=== PATIENT | female | born 1970 | race Caucasian/White ===

== ENCOUNTER 2018-10-20 08:00 | Outpatient (CLI) | payer MEDICAID ==
[2018-10-20 12:51] LABS: BASOPHILS # (AUTO) 0.1 10^3/uL (0.0-0.1); BASOPHILS % (AUTO) 1.4 %; EOSINOPHILS # (AUTO) 0.4 10^3/uL (0.0-0.7); EOSINOPHILS % (AUTO) 6.1 %; HGB - HEMOGLOBIN 14.1 g/dL (12.0-16.0); LYMPHOCYTES # (AUTO) 2.4 10^3/uL (1.5-3.5); LYMPHOCYTES % (AUTO) 39.3 %; MEAN CORPUSCULAR HEMOGLOBIN 28.9 pg (27.0-31.0); MEAN CORPUSCULAR HGB CONC 33.6 g/dL (32.0-36.0); MEAN CORPUSCULAR VOLUME 85.9 fL (81.0-99.0); MEAN PLATELET VOLUME 7.3 fL (7.9-10.8); MONOCYTES # (AUTO) 0.4 10^3/uL (0.0-1.0); MONOCYTES % (AUTO) 6.1 %; NEUTROPHILS # (AUTO) 2.9 10^3/uL (1.5-6.6); NEUTROPHILS % (AUTO) 47.1 %; PLT - PLATELET COUNT 391 10^3/uL (130-450); RED BLOOD COUNT 4.89 10^6/uL (4.20-5.40); RED CELL DISTRIBUTION WIDTH 13.4 % (12.0-15.0); WHITE BLOOD COUNT 6.2 x10^3/uL (4.8-10.8)
[2018-10-20 13:08] LABS: ALBUMIN 4.1 g/dL (3.2-5.5); ALBUMIN/GLOBULIN RATIO 1.1 (1.0-2.2); ALKALINE PHOSPHATASE 64 IU/L (42-121); ALT ALANINE AMINOTRANSFERASE 24 IU/L (10-60); AST ASPARTATE AMINOTRANSFERASE 20 IU/L (10-42); BILIRUBIN,TOTAL 0.9 mg/dL (0.2-1.0); BUN - BLOOD UREA NITROGEN 12 mg/dL (6-20); CALCIUM 9.4 mg/dL (8.5-10.3); CARBON DIOXIDE - CO2 25 mmol/L (21-32); CHLORIDE 102 mmol/L (101-111); CHOL/HDL RATIO 3.6 (<4.4); CHOLESTEROL 193 mg/dL; CREATININE 0.8 mg/dL (0.4-1.0); GFR - MDRD 77 (>89); GLUCOSE 214 mg/dL (70-100); HDL CHOLESTEROL 54 mg/dL; LDL CHOLESTEROL,CALCULATED 89 mg/dL; LDL/HDL RATIO 1.6 (<4.4); SODIUM 137 mmol/L (135-145); TOTAL PROTEIN 7.9 g/dL (6.7-8.2); VLDL CHOLESTEROL 50 mg/dL
[2018-10-20 13:21] LABS: HB2 TOTAL 15.5 g/dL; HEMOGLOBIN A1C 1.63 g/dL; HEMOGLOBIN A1C % 11.8 % (4.6-6.2)
== END 2018-10-20 23:59 | disposition home or self-care (01) ==
LOC: LAB.N 08:00
PROVIDERS: ATTEND Nurse Practitioner Gerontology
DX: I10 Essential (primary) hypertension (principal); E11.9 Type 2 diabetes mellitus without complications; Z13.9 Encounter for screening, unspecified
CPT/HCPCS: 36415; 80053; 80061; 83036; 83721; 84443; 85025

== ENCOUNTER 2018-12-21 01:57 | Emergency (ER) | payer MEDICAID ==
[2018-12-21 02:50] LABS: BASOPHILS # (AUTO) 0.1 10^3/uL (0.0-0.1); BASOPHILS % (AUTO) 0.9 %; EOSINOPHILS # (AUTO) 0.1 10^3/uL (0.0-0.7); EOSINOPHILS % (AUTO) 1.6 %; HGB - HEMOGLOBIN 14.3 g/dL (12.0-16.0); LYMPHOCYTES # (AUTO) 3.3 10^3/uL (1.5-3.5); LYMPHOCYTES % (AUTO) 39.4 %; MEAN CORPUSCULAR HEMOGLOBIN 29.1 pg (27.0-31.0); MEAN CORPUSCULAR HGB CONC 33.5 g/dL (32.0-36.0); MONOCYTES # (AUTO) 0.7 10^3/uL (0.0-1.0); MONOCYTES % (AUTO) 8.6 %; NEUTROPHILS # (AUTO) 4.1 10^3/uL (1.5-6.6); NEUTROPHILS % (AUTO) 49.5 %; PLT - PLATELET COUNT 368 10^3/uL (130-450); RED BLOOD COUNT 4.91 10^6/uL (4.20-5.40); RED CELL DISTRIBUTION WIDTH 13.3 % (12.0-15.0); WHITE BLOOD COUNT 8.4 x10^3/uL (4.8-10.8)
[2018-12-21 02:57] LABS: ALBUMIN 4.4 g/dL (3.2-5.5); ALBUMIN/GLOBULIN RATIO 1.3 (1.0-2.2); BILIRUBIN,TOTAL 0.5 mg/dL (0.2-1.0); CALCIUM 9.5 mg/dL (8.5-10.3); TOTAL PROTEIN 7.9 g/dL (6.7-8.2)
[2018-12-21] MEDS ORDERED: SODIUM CHLORIDE 0.9% 1,000 ML IV ONE (04:00)
[2018-12-21] MEDS ORDERED: HYDROmorphone 1 MG/ML CARPUJECT IVP STA ×2 (04:00→04:58)
[2018-12-21] MEDS ORDERED: ONDANSETRON 4 MG/2 ML VIAL IVP STA (04:00)
[2018-12-21 04:16] LABS: BILIRUBIN,URINE NEGATIVE (NEGATIVE); GLUCOSE, URINE (UA) >=1000 mg/dL (NEGATIVE); KETONES,URINE (UA) NEGATIVE (NEGATIVE); LEUKOCYTE ESTERASE, URINE NEGATIVE (NEGATIVE); NITRITE,URINE NEGATIVE (NEGATIVE); OCCULT BLOOD,URINE NEGATIVE (NEGATIVE); PH,URINE 5.5 PH (5.0-7.5); PROTEIN,URINE NEGATIVE (NEGATIVE); UROBILINOGEN,URINE 0.2 (NORMAL) E.U./dL (NORMAL)
[2018-12-21 04:34] LABS: CLARITY,URINE CLEAR (CLEAR)
--- NOTE | 2018-12-21 04:39 | ED Physician Documentation ---
PD HPI ABD PAIN - Stated complaint Stated Complaint: ABD PX - Chief complaint Chief Complaint: Abd Pain - History obtained from History obtained from: Patient, Family - History of Present Illness Timing - onset: Enter time (010) Timing - duration: Hours Timing - details: Abrupt onset, Still present Quality: Sharp, Pain Location: RUQ Radiation: Right flank Improved by: Laying still Worsened by: Moving, Position, Palpation Associated symptoms: Nausea, Vomiting Similar symptoms before: Diagnosis (pancreatitis) Recently seen: Not recently seen - Additional information Additional information: 48-year-old female with a prior history of chronic pancreatitis has previously been well-known to this emergency department but she has moved to [place] and she has now returned. We have no visits in our electronic system for this patient. She had previously been to the emergency department numerous times with abdominal pain pancreatitis and had a failed pancreatic stent placed. She has since moved to [place] lost 100 pounds and rarely had to be seen there. She has been back to [facility] for the past year and she has not had to be seen for this pain. She states that this evening she had dinner at the buffet at 7pm and not any excessive amount. At 1 am she developed sharp severe pain in the RUQ and epigastrium. She has had her gallbladder out 29 years ago. She states this is a similar pain to what she has had previously and she is just not able to tolerate it. Review of Systems Constitutional: denies: Fever Eyes: denies: Decreased vision Ears: denies: Ear pain Nose: denies: Rhinorrhea / runny nose, Congestion Throat: denies: Sore throat Cardiac: denies: Chest pain / pressure, Palpitations Respiratory: denies: Dyspnea, Cough GI: reports: Abdominal Pain, Nausea : denies: Dysuria, Frequency Skin: denies: Rash Musculoskeletal: denies: Neck pain, Back pain Neurologic: denies: Generalized weakness, Focal weakness, Numbness PD PAST MEDICAL HISTORY - Past Medical History Past Medical History: Yes Cardiovascular: Hypertension Endocrine/Autoimmune: Type 2 diabetes GI: Pancreatitis, Cholelithiasis Psych: Depression, Anxiety - Past Surgical History Past Surgical History: Yes General: Cholecystectomy Ortho: Knee replacement /[employer]: Tubal ligation, Hysterectomy, Oophrectomy, Breast reduction - Present Medications Home Medications: Ambulatory Orders Medication Instructions Recorded Confirmed Canagliflozin [Invokana] 100 mg PO DAILY 12/21/18 12/21/18 RX: FLUoxetine [PROzac] 20 mg PO DAILY 12/21/18 12/21/18 RX: Lisinopril 25 mg PO DAILY 12/21/18 12/21/18 RX: Metformin HCl 1,000 mg PO BID 12/21/18 12/21/18 - Allergies Allergies/Adverse Reactions: Allergies Allergy/AdvReac Type Severity Reaction Status Date / Time metoclopramide [From Reglan] AdvReac Rash Verified 12/21/18 02:12 - Social History Does the pt smoke?: No Smoking Status: Never smoker Does the pt drink ETOH?: No Does the pt have substance abuse?: No - Immunizations Immunizations are current?: Yes - POLST Patient has POLST: No PD ED PE NORMAL - Vitals Vital signs reviewed: Yes (hypertensive ) - General General: Alert and oriented X 3, Well developed/nourished, Other (appears in pain clutching RUQ) - HEENT HEENT: Atraumatic, PERRL, EOMI - Neck Neck: Supple, no meningeal sign - Cardiac Cardiac: RRR, No murmur - Respiratory Respiratory: No respiratory distress, Clear bilaterally - Abdomen Abdomen: Soft, Other (mild tenderness to the RUQ and epigastrium ) - Back Back: No CVA TTP, No spinal TTP - Derm Derm: Normal color, Warm and dry, No rash - Extremities Extremities: No deformity, No edema - Neuro Neuro: Alert and oriented X 3, 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, No motor deficit, No sensory deficit, Normal speech Eye Opening: Spontaneous Motor: Obeys Commands Verbal: Oriented GCS Score: 15 - Psych Psych: Normal mood, Normal affect Results - Vitals Vitals: Vital Signs - 24 hr 12/21/18 12/21/18 12/21/18 02:10 03:01 05:15 Temperature 37.1 C 36.5 C 36.8 C Heart Rate 78 94 103 H Respiratory 17 20 15 Rate Blood Pressure 139/85 H 128/89 H 116/78 O2 Saturation 100 97 95 Oxygen O2 Source Room air - Labs Labs: Laboratory Tests 12/21/18 12/21/18 12/21/18 02:38 02:38 03:16 WBC 8.4 RBC 4.91 Hgb 14.3 Hct 42.7 MCV 87.0 MCH 29.1 MCHC 33.5 RDW 13.3 Plt Count 368 MPV 7.0 L Neut # (Auto) 4.1 Lymph # (Auto) 3.3 [place] # (Auto) 0.7 Eos # (Auto) 0.1 Baso # (Auto) 0.1 Absolute Nucleated RBC 0.00 Nucleated RBC % 0.0 Sodium 138 Potassium 3.5 Chloride 98 L Carbon Dioxide 28 Anion Gap 12.0 BUN 23 H Creatinine 1.0 Estimated GFR (MDRD) 59 L Glucose 220 H Calcium 9.5 Total Bilirubin 0.5 AST 14 ALT 22 Alkaline Phosphatase 61 Total Protein 7.9 Albumin 4.4 Globulin 3.5 Albumin/Globulin Ratio 1.3 Lipase 48 Urine Color YELLOW Urine Clarity CLEAR Urine pH 5.5 Ur Specific [place] 1.015 Urine Protein NEGATIVE Urine Glucose (UA) >=1000 H Urine Ketones NEGATIVE Urine Occult Blood NEGATIVE Urine Nitrite NEGATIVE Urine Bilirubin NEGATIVE Urine Urobilinogen 0.2 (NORMAL) Ur Leukocyte Esterase NEGATIVE Ur Microscopic Review NOT INDICATED Urine Culture Comments NOT INDICATED PD MEDICAL DECISION MAKING - ED course Complexity details: reviewed results, re-evaluated patient, considered differential, d/w patient, d/w family ED course: 48 y/o female with post prandial pain in a pattern similar to what she has experienced previously has no evidence of pancreatitis on lab and responds well to treatment with a liter of saline and dilaudid IV. No scripts are provided. Departure - Departure Disposition: 01 Home, Self Care Clinical Impression: Abdominal pain Qualifiers: Abdominal location: right upper quadrant Qualified Code(s): R10.11 - Right upper quadrant pain Instructions: ED Abdominal Pain Unkn Cause Follow-Up: Greer Disla ARNP [Primary Care Provider] - Discharge Date/Time: 12/21/18 05:23
[2018-12-21 05:16] VITALS: BP 116/78
== END 2018-12-21 05:23 | disposition home or self-care (01) ==
LOC: ED 01:57
DX: R10.11 Right upper quadrant pain (principal); R10.13 Epigastric pain; R11.2 Nausea with vomiting, unspecified; I10 Essential (primary) hypertension; E11.9 Type 2 diabetes mellitus without complications; Z79.84 Long term (current) use of oral hypoglycemic drugs; Z90.49 Acquired absence of other specified parts of digestive tract
CPT/HCPCS: 36415; 80053; 81003; 83690; 85025; 96374; 96376; 99283; 99284; J1170; 81001; 87086

== ENCOUNTER 2019-06-09 04:05 | Emergency (ER) | payer SELFPAY ==
[2019-06-09] MEDS ORDERED: SODIUM CHLORIDE 0.9% 1,000 ML IV ONE ×2 (04:32→06:53)
[2019-06-09] MEDS ORDERED: INSULIN REGULAR HUMAN 100 UNIT in SODIUM CHLORIDE 0.9% 100ML 99 ML IV STA (04:33)
--- NOTE | 2019-06-09 04:42 | ED Physician Documentation ---
History of Present Illness - Stated complaint Stated Complaint: CP/SLUGGISH FACE - Chief complaint Chief Complaint: Cardiac - History obtained from History obtained from: Patient, Family - History of Present Illness Timing: How many days ago (5) - Additonal information Additional information: 49-year-old female with a history of type 2 diabetes and chronic pancreatitis has run out of her diabetic medications and she is continued to work hard at home. She is subsequently developed polyuria polydipsia fatigue and chest pain with numbness to her face. She has had these issues previously was treated with nitroglycerin. Review of Systems Constitutional: reports: Fatigue. denies: Fever Eyes: denies: Decreased vision Ears: denies: Ear pain Nose: denies: Rhinorrhea / runny nose, Congestion Throat: denies: Sore throat Cardiac: reports: Chest pain / pressure, Palpitations. denies: Calf pain Respiratory: denies: Dyspnea, Cough GI: denies: Abdominal Pain, Nausea, Vomiting : reports: Frequency. denies: Dysuria Skin: denies: Rash Musculoskeletal: reports: Back pain. denies: Neck pain, Extremity pain Neurologic: reports: Numbness. denies: Generalized weakness, Focal weakness Endocrine: reports: Polydypsia, Polyuria PD PAST MEDICAL HISTORY - Past Medical History Cardiovascular: Hypertension Endocrine/Autoimmune: Type 2 diabetes GI: Pancreatitis, Cholelithiasis Psych: Depression, Anxiety - Past Surgical History Past Surgical History: Yes General: Cholecystectomy Ortho: Knee replacement /[employer]: Tubal ligation, Hysterectomy, Oophrectomy, Breast reduction - Present Medications Home Medications: Ambulatory Orders Medication Instructions Recorded Confirmed Canagliflozin [Invokana] 100 mg PO DAILY 12/21/18 12/21/18 FLUoxetine [PROzac] 20 mg PO DAILY 12/21/18 12/21/18 Lisinopril 25 mg PO DAILY 12/21/18 12/21/18 Metformin HCl 1,000 mg PO BID 12/21/18 12/21/18 - Allergies Allergies/Adverse Reactions: Allergies Allergy/AdvReac Type Severity Reaction Status Date / Time metoclopramide [From Reglan] AdvReac Rash Verified 12/21/18 02:12 - Social History Does the pt smoke?: No Smoking Status: Never smoker Does the pt drink ETOH?: No Does the pt have substance abuse?: No - Immunizations Immunizations are current?: Yes - POLST Patient has POLST: No PD ED PE NORMAL - Vitals Vital signs reviewed: Yes (hypertensive) - General General: Alert and oriented X 3, Well developed/nourished, Other (anxious appearing) - HEENT HEENT: Atraumatic, PERRL, EOMI - Neck Neck: Supple, no meningeal sign - Cardiac Cardiac: No murmur, Other (tachy to 120 sitting upright for exam) - Respiratory Respiratory: No respiratory distress, Clear bilaterally, Other (There is lower sternum pain to palpation reproducing the pain the patient is experiencing) - Abdomen Abdomen: Soft, Non tender - Back Back: No CVA TTP, No spinal TTP - Derm Derm: Normal color, No rash - Extremities Extremities: No deformity, No edema, No calf tenderness / cord - Neuro Neuro: Alert and oriented X 3, hammerer 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 2-12 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, No motor deficit, No sensory deficit, Normal speech Eye Opening: Spontaneous Motor: Obeys Commands Verbal: Oriented GCS Score: 15 - Psych Psych: Other (mood is anxious) Results - Vitals Vitals: Vital Signs - 24 hr 06/09/19 06/09/19 06/09/19 06:13 07:11 08:52 Heart Rate 83 94 70 Respiratory 20 17 8 L Rate Blood Pressure 124/84 H 139/95 H 142/100 H O2 Saturation 97 99 100 Oxygen O2 Source Room air - EKG (time done) 0411 Rate: Rate (enter#) (97) Rhythm: NSR Intervals: Prolonged QT Ischemia: Q waves Compare to prior EKG: Old EKG unavailable Computer interpretation: Agree with computer - Labs Labs: Laboratory Tests 06/09/19 06/09/19 06/09/19 04:32 04:46 04:46 WBC 7.0 RBC 5.00 Hgb 14.5 Hct 44.0 MCV 88.0 MCH 29.0 MCHC 33.0 RDW 12.9 Plt Count 383 MPV 9.3 Neut # (Auto) 2.8 Lymph # (Auto) 3.2 [place] # (Auto) 0.7 Eos # (Auto) 0.3 Baso # (Auto) 0.1 Absolute Nucleated RBC 0.00 Nucleated RBC % 0.0 VBG pH VBG pCO2 VBG pO2 VBG HCO3 VBG Total CO2 VBG O2 Saturation VBG Base Excess Sodium 136 Potassium 3.6 Chloride 98 L Carbon Dioxide 27 Anion Gap 11.0 BUN 17 Creatinine 0.9 Estimated GFR (MDRD) 67 L Glucose 345 H POC Whole Bld Glucose 372 H Calcium 9.2 Total Bilirubin 0.6 AST 18 ALT 30 Alkaline Phosphatase 77 Troponin I High Sens Total Protein 7.7 Albumin 4.0 Globulin 3.7 Albumin/Globulin Ratio 1.1 Lipase 34 Urine Color Urine Clarity Urine pH Ur Specific [place] Urine Protein Urine Glucose (UA) Urine Ketones Urine Occult Blood Urine Nitrite Urine Bilirubin Urine Urobilinogen Ur Leukocyte Esterase Ur Microscopic Review Urine Culture Comments Serum Ketones NEGATIVE 06/09/19 06/09/19 06/09/19 04:46 04:46 05:00 WBC RBC Hgb Hct MCV MCH MCHC RDW Plt Count MPV Neut # (Auto) Lymph # (Auto) [place] # (Auto) Eos # (Auto) Baso # (Auto) Absolute Nucleated RBC Nucleated RBC % VBG pH 7.283 L VBG pCO2 57.8 H VBG pO2 29.5 VBG HCO3 26.7 VBG Total CO2 28.5 VBG O2 Saturation 56.8 L VBG Base Excess -1.2 Sodium Potassium Chloride Carbon Dioxide Anion Gap BUN Creatinine Estimated GFR (MDRD) Glucose POC Whole Bld Glucose Calcium Total Bilirubin AST ALT Alkaline Phosphatase Troponin I High Sens < 2.3 L Total Protein Albumin Globulin Albumin/Globulin Ratio Lipase Urine Color YELLOW Urine Clarity CLEAR Urine pH 5.5 Ur Specific [place] 1.020 Urine Protein NEGATIVE Urine Glucose (UA) >=1000 H Urine Ketones 15 H Urine Occult Blood NEGATIVE Urine Nitrite NEGATIVE Urine Bilirubin NEGATIVE Urine Urobilinogen 0.2 (NORMAL) Ur Leukocyte Esterase NEGATIVE Ur Microscopic Review NOT INDICATED Urine Culture Comments NOT INDICATED Serum Ketones 06/09/19 06/09/19 06:04 07:08 WBC RBC Hgb Hct MCV MCH MCHC RDW Plt Count MPV Neut # (Auto) Lymph # (Auto) [place] # (Auto) Eos # (Auto) Baso # (Auto) Absolute Nucleated RBC Nucleated RBC % VBG pH VBG pCO2 VBG pO2 VBG HCO3 VBG Total CO2 VBG O2 Saturation VBG Base Excess Sodium Potassium Chloride Carbon Dioxide Anion Gap BUN Creatinine Estimated GFR (MDRD) Glucose POC Whole Bld Glucose 273 H 245 H Calcium Total Bilirubin AST ALT Alkaline Phosphatase Troponin I High Sens Total Protein Albumin Globulin Albumin/Globulin Ratio Lipase Urine Color Urine Clarity Urine pH Ur Specific [place] Urine Protein Urine Glucose (UA) Urine Ketones Urine Occult Blood Urine Nitrite Urine Bilirubin Urine Urobilinogen Ur Leukocyte Esterase Ur Microscopic Review Urine Culture Comments Serum Ketones Procedures - IVC sono (time) 0435 Bedside IVC sono: IVC measures (cm) (0.91), Dehydration (est 1-2 liter deficit) PD MEDICAL DECISION MAKING - ED course Complexity details: reviewed old records, reviewed results, re-evaluated patient, considered differential, d/w patient, d/w family ED course: 49 y/o diabetic female with a history of chronic pancreatitis was doing well on invokana and metformin and she has had a problem getting the invokana filled and is now dehydrated and hyperglycemic. She does not have keto-acidosis. She is given IV saline and an IV insulin drip at 6 units per hour is started. She responds well to treatment and indicates she will follow up with the clinic on [facility] for care. She has metformin and will restart that. She is much improved a conclusion of treatment. Departure - Departure Disposition: 01 Home, Self Care Clinical Impression: Dehydration Diabetes type 2, uncontrolled Qualifiers: Glycemic state: with hyperglycemia Qualified Code(s): E11.65 - Type 2 diabetes mellitus with hyperglycemia Condition: Stable Instructions: ED Hyperglycemia Diabetic, ED Dehydration Follow-Up: [facility] [Provider Group] Discharge Date/Time: 06/09/19 09:03
[2019-06-09 04:53] LABS: VBG BASE EXCESS -1.2 mmol/L (-2 - +2); VBG PCO2 57.8 mmHg (41-51); VBG PH 7.283 (7.31-7.41); VBG PO2 29.5 mmHg (25-47); VBG TOTAL CO2 28.5 mmol/L (24-29)
[2019-06-09 05:01] LABS: BASOPHILS # (AUTO) 0.1 10^3/uL (0.0-0.1); BASOPHILS % (AUTO) 1.3 %; EOSINOPHILS # (AUTO) 0.3 10^3/uL (0.0-0.7); EOSINOPHILS % (AUTO) 3.9 %; HGB - HEMOGLOBIN 14.5 g/dL (12.0-16.0); LYMPHOCYTES # (AUTO) 3.2 10^3/uL (1.5-3.5); LYMPHOCYTES % (AUTO) 45.3 %; MEAN PLATELET VOLUME 9.3 fL (7.9-10.8); MONOCYTES # (AUTO) 0.7 10^3/uL (0.0-1.0); MONOCYTES % (AUTO) 9.6 %; NEUTROPHILS # (AUTO) 2.8 10^3/uL (1.5-6.6); NEUTROPHILS % (AUTO) 39.5 %; PLT - PLATELET COUNT 383 10^3/uL (130-450); RED CELL DISTRIBUTION WIDTH 12.9 % (12.0-15.0)
[2019-06-09 05:04] LABS: KETONES, SERUM (ACETEST) NEGATIVE (NEGATIVE)
--- NOTE | 2019-06-09 05:08 | XRAY Report ---
Reason: chest pain Procedure Date: 06/09/2019 Accession Number: [id number] / [id number] Procedure: XR - Chest 1 View X-Ray CPT Code: 38949 Final Report FULL RESULT: EXAM: CHEST RADIOGRAPHY EXAM DATE: 06/09/2019 04:43 AM. CLINICAL HISTORY: Chest pain. COMPARISON: XR RIBS UNILAT W/ PA CHEST MIN 3 VIEWS 05/29/2012 4:07 PM. TECHNIQUE: 1 view. FINDINGS: Lungs/Pleura: Mildly elevated right hemidiaphragm. No alveolar consolidation or pleural effusion seen. No pneumothorax. Mediastinum: Within exam limitations, the cardiomediastinal contour is normal. Other: None. IMPRESSION: 1. No acute abnormality seen in the chest. RADIA
[2019-06-09 05:12] LABS: ALBUMIN/GLOBULIN RATIO 1.1 (1.0-2.2); ALKALINE PHOSPHATASE 77 IU/L (42-121); ALT ALANINE AMINOTRANSFERASE 30 IU/L (10-60); AST ASPARTATE AMINOTRANSFERASE 18 IU/L (10-42); BILIRUBIN,TOTAL 0.6 mg/dL (0.2-1.0); BUN - BLOOD UREA NITROGEN 17 mg/dL (6-20); CALCIUM 9.2 mg/dL (8.5-10.3); CARBON DIOXIDE - CO2 27 mmol/L (21-32); CHLORIDE 98 mmol/L (101-111); CREATININE 0.9 mg/dL (0.4-1.0); GFR - MDRD 67 (>89); GLUCOSE 345 mg/dL (70-100); LIPASE 34 U/L (22-51); SODIUM 136 mmol/L (135-145); TOTAL PROTEIN 7.7 g/dL (6.7-8.2)
[2019-06-09 05:17] LABS: BILIRUBIN,URINE NEGATIVE (NEGATIVE); GLUCOSE, URINE (UA) >=1000 mg/dL (NEGATIVE); KETONES,URINE (UA) 15 mg/dL (NEGATIVE); LEUKOCYTE ESTERASE, URINE NEGATIVE (NEGATIVE); NITRITE,URINE NEGATIVE (NEGATIVE); OCCULT BLOOD,URINE NEGATIVE (NEGATIVE); PH,URINE 5.5 PH (5.0-7.5); PROTEIN,URINE NEGATIVE (NEGATIVE); UROBILINOGEN,URINE 0.2 (NORMAL) E.U./dL (NORMAL)
[2019-06-09] MEDS ORDERED: KETOROLAC 30 MG/ML VIAL IVP STA (06:10)
[2019-06-09] MEDS ORDERED: PROMETHAZINE INJ 25 MG in SODIUM CHLORIDE 0.9% 50 ML IV STA (06:10)
[2019-06-09 06:16] LABS: CLARITY,URINE CLEAR (CLEAR)
[2019-06-09] MEDS ORDERED: PROMETHAZINE 25 MG/1 ML VIAL IM STA (06:28)
[2019-06-09] MEDS ORDERED: PROMETHAZINE 25 MG/1 ML VIAL ONE (06:41)
[2019-06-09 08:57] VITALS: BP 142/100
== END 2019-06-09 09:03 | disposition home or self-care (01) ==
LOC: ED 04:05
DX: E86.0 Dehydration (principal); E11.65 Type 2 diabetes mellitus with hyperglycemia; I10 Essential (primary) hypertension; Z79.84 Long term (current) use of oral hypoglycemic drugs
CPT/HCPCS: 36415; 71045; 80053; 81003; 82009; 82803; 83690; 84484; 85025; 93005; 96361; 96372; 96374; 99284; J1815; J7040; 81001; 87086

== ENCOUNTER 2019-08-22 18:28 | Emergency (ER) | payer SELFPAY ==
[2019-08-22 19:11] LABS: BILIRUBIN,URINE NEGATIVE (NEGATIVE); GLUCOSE, URINE (UA) >=1000 mg/dL (NEGATIVE); KETONES,URINE (UA) NEGATIVE (NEGATIVE); LEUKOCYTE ESTERASE, URINE NEGATIVE (NEGATIVE); NITRITE,URINE NEGATIVE (NEGATIVE); OCCULT BLOOD,URINE NEGATIVE (NEGATIVE); PROTEIN,URINE NEGATIVE (NEGATIVE); UROBILINOGEN,URINE 0.2 (NORMAL) E.U./dL (NORMAL)
[2019-08-22 19:12] LABS: CLARITY,URINE CLEAR (CLEAR)
[2019-08-22] MEDS ORDERED: HYDROmorphone 1 MG/ML CARPUJECT IVP STA ×2 (19:55→21:11)
[2019-08-22] MEDS ORDERED: ONDANSETRON 4 MG/2 ML VIAL IVP STA (19:55)
--- NOTE | 2019-08-22 19:57 | ED Physician Documentation ---
PD HPI ABD PAIN - Stated complaint Stated Complaint: AB PX - Chief complaint Chief Complaint: Abd Pain - History obtained from History obtained from: Patient - History of Present Illness Timing - onset: Other (49-year-old woman who used to be very well-known to this number it sounds like she was having some chronic pancreatitis for unclear reasons. She was seeing a GI doctor and basically has much less frequent episodes now. Today she is had 2 days of periumbilical pain radiating up, this is not similar to prior episodes of chronic abdominal pain and pancreatitis. She is been nauseous without vomiting. Bowel movements have been normal. She has a history of remote cholecystectomy and hysterectomy.) Review of Systems Ten Systems: 10 systems reviewed and negative Constitutional: denies: Fever, Chills Cardiac: denies: Chest pain / pressure, Palpitations Respiratory: denies: Dyspnea, Cough PD PAST MEDICAL HISTORY - Past Medical History Cardiovascular: Hypertension Endocrine/Autoimmune: Type 2 diabetes GI: Pancreatitis, Cholelithiasis Psych: Depression, Anxiety - Past Surgical History Past Surgical History: Yes General: Cholecystectomy Ortho: Knee replacement /[employer]: Tubal ligation, Hysterectomy, Oophrectomy, Breast reduction - Present Medications Home Medications: Ambulatory Orders Medication Instructions Recorded Confirmed Canagliflozin [Invokana] 100 mg PO DAILY 12/21/18 12/21/18 Metformin HCl 1,000 mg PO BID 12/21/18 12/21/18 - Allergies Allergies/Adverse Reactions: Allergies Allergy/AdvReac Type Severity Reaction Status Date / Time metoclopramide [From Reglan] AdvReac Rash Verified 08/22/19 18:44 - Social History Does the pt smoke?: No Smoking Status: Never smoker Does the pt drink ETOH?: No Does the pt have substance abuse?: No - Immunizations Immunizations are current?: Yes - POLST Patient has POLST: No PD ED PE NORMAL - Vitals Vital signs reviewed: Yes - General General: Alert and oriented X 3, No acute distress - HEENT HEENT: PERRL, EOMI - Neck Neck: Supple, no meningeal sign, No bony TTP - Cardiac Cardiac: RRR, No murmur - Respiratory Respiratory: No respiratory distress, Clear bilaterally - Abdomen Abdomen: Other (Mild upper abdominal tenderness without localizing signs, soft) - Back Back: No CVA TTP, No spinal TTP - Derm Derm: Normal color, Warm and dry - Neuro Neuro: Alert and oriented X 3, Normal speech Results - Vitals Vitals: Vital Signs - 24 hr 08/22/19 08/22/19 18:41 22:17 Temperature 37 C 36.9 C Heart Rate 86 95 Respiratory 18 17 Rate Blood Pressure 160/103 H 175/90 H O2 Saturation 98 96 Oxygen O2 Source Room air - Labs Labs: Laboratory Tests 08/22/19 08/22/19 08/22/19 18:46 19:55 19:55 WBC 7.5 RBC 4.98 Hgb 14.6 Hct 44.2 MCV 88.8 MCH 29.3 MCHC 33.0 RDW 12.5 Plt Count 353 MPV 9.7 Neut # (Auto) 3.2 Lymph # (Auto) 3.4 [place] # (Auto) 0.6 Eos # (Auto) 0.2 Baso # (Auto) 0.1 Absolute Nucleated RBC 0.00 Nucleated RBC % 0.0 Sodium 134 L Potassium 3.8 Chloride 96 L Carbon Dioxide 25 Anion Gap 13.0 BUN 9 Creatinine 0.8 Estimated GFR (MDRD) 77 L Glucose 307 H Calcium 9.6 Total Bilirubin 0.7 AST 20 ALT 28 Alkaline Phosphatase 63 Total Protein 8.4 H Albumin 4.3 Globulin 4.1 Albumin/Globulin Ratio 1.0 Lipase 35 Urine Color YELLOW Urine Clarity CLEAR Urine pH 6.0 Ur Specific [place] 1.020 Urine Protein NEGATIVE Urine Glucose (UA) >=1000 H Urine Ketones NEGATIVE Urine Occult Blood NEGATIVE Urine Nitrite NEGATIVE Urine Bilirubin NEGATIVE Urine Urobilinogen 0.2 (NORMAL) Ur Leukocyte Esterase NEGATIVE Ur Microscopic Review NOT INDICATED Urine Culture Comments NOT INDICATED 08/22/19 21:39 WBC RBC Hgb Hct MCV MCH MCHC RDW Plt Count MPV Neut # (Auto) Lymph # (Auto) [place] # (Auto) Eos # (Auto) Baso # (Auto) Absolute Nucleated RBC Nucleated RBC % Sodium Potassium Chloride Carbon Dioxide Anion Gap BUN Creatinine Estimated GFR (MDRD) Glucose Calcium Total Bilirubin AST ALT Alkaline Phosphatase Total Protein Albumin Globulin Albumin/Globulin Ratio Lipase Urine Color YELLOW Urine Clarity CLEAR Urine pH 5.5 Ur Specific [place] 1.010 Urine Protein NEGATIVE Urine Glucose (UA) >=1000 H Urine Ketones TRACE Urine Occult Blood TRACE-INTA Urine Nitrite NEGATIVE Urine Bilirubin NEGATIVE Urine Urobilinogen 0.2 (NORMAL) Ur Leukocyte Esterase NEGATIVE Ur Microscopic Review NOT INDICATED Urine Culture Comments NOT INDICATED - Rads (name of study) CT A/P Radiology: Prelim report reviewed (No acute findings, fatty liver, prior cholecystectomy, subtle area of decreased attenuation in the uncinate process of the pancreas, recommend follow-up CT in 3 to 6 months to ensure stability.) PD MEDICAL DECISION MAKING - ED course ED course: 49-year-old woman with recurrent chronic abdominal pain presents with pain that is new and different for her, her work-up is as shown and pain improved with pain medications. Discussed need for follow-up CT. Departure - Departure Disposition: 01 Home, Self Care Clinical Impression: Abdominal pain Qualifiers: Abdominal location: generalized Qualified Code(s): R10.84 - Generalized abdominal pain Condition: Good Record reviewed to determine appropriate education?: Yes Instructions: ED Abdominal Pain Unkn Cause Comments: You have an area of slightly decreased blood flow to the uncinate process of your pancreas, the radiologist recommends a repeat CAT scan in 3 months to determine stability of this finding. Call your doctor to arrange a follow-up appointment, make the next available appointment. In the interim, return anytime if worse or if new symptoms develop. Discharge Date/Time: 08/22/19 22:22
[2019-08-22 20:04] LABS: BASOPHILS # (AUTO) 0.1 10^3/uL (0.0-0.1); BASOPHILS % (AUTO) 0.9 %; EOSINOPHILS # (AUTO) 0.2 10^3/uL (0.0-0.7); EOSINOPHILS % (AUTO) 2.8 %; HGB - HEMOGLOBIN 14.6 g/dL (12.0-16.0); LYMPHOCYTES # (AUTO) 3.4 10^3/uL (1.5-3.5); LYMPHOCYTES % (AUTO) 45.4 %; MEAN CORPUSCULAR HEMOGLOBIN 29.3 pg (27.0-31.0); MEAN CORPUSCULAR VOLUME 88.8 fL (81.0-99.0); MEAN PLATELET VOLUME 9.7 fL (7.9-10.8); MONOCYTES # (AUTO) 0.6 10^3/uL (0.0-1.0); MONOCYTES % (AUTO) 8.5 %; NEUTROPHILS # (AUTO) 3.2 10^3/uL (1.5-6.6); NEUTROPHILS % (AUTO) 41.9 %; PLT - PLATELET COUNT 353 10^3/uL (130-450); RED BLOOD COUNT 4.98 10^6/uL (4.20-5.40); RED CELL DISTRIBUTION WIDTH 12.5 % (12.0-15.0); WHITE BLOOD COUNT 7.5 x10^3/uL (4.8-10.8)
[2019-08-22 20:17] LABS: ALBUMIN 4.3 g/dL (3.2-5.5); BILIRUBIN,TOTAL 0.7 mg/dL (0.2-1.0); CALCIUM 9.6 mg/dL (8.5-10.3); CREATININE 0.8 mg/dL (0.4-1.0); TOTAL PROTEIN 8.4 g/dL (6.7-8.2)
[2019-08-22] MEDS ORDERED: IOVERSOL 320 100 ML VIAL IVP ONE ×2 (20:24→20:46)
--- NOTE | 2019-08-22 21:05 | CT Report ---
Reason: abd pain Procedure Date: 08/22/2019 Accession Number: [id number] / [id number] Procedure: CT - Abdomen/Pelvis W CPT Code: Final Report FULL RESULT: EXAM: CT ABDOMEN AND PELVIS EXAM DATE: 08/22/2019 08:43 PM. CLINICAL HISTORY: Abd pain. COMPARISONS: ABD/PEL 10/09/2009 2:37 PM. TECHNIQUE: Routine helical CT imaging was performed through the abdomen and pelvis. IV contrast: OPTI 320 100ML. Enteric contrast: No. Reconstructions: Coronal and sagittal. In accordance with CT protocol optimization, one or more of the following dose reduction techniques were utilized for this exam: automated exposure control, adjustment of mA and/or KV based on patient size, or use of iterative reconstructive technique. FINDINGS: Lung Bases: Unremarkable. Liver: There is diffuse fatty infiltration of the liver. Gallbladder/Bile Ducts: Resected Spleen: Normal. Pancreas: There is a subtle area of decreased attenuation in the uncinate process of the pancreas. This measures 19 mm x 12 mm. On the previous study there may have been very subtle 4 mm low attenuating region in the same location. The remaining pancreas remains unremarkable. Adrenal Glands: Normal. Kidneys: Normal. No masses or hydronephrosis. Peritoneal Cavity/Bowel: Normal. No free fluid, free air or adenopathy. No masses or acute inflammatory process. The appendix is well visualized and normal. There are no inflammatory changes of the colon. Pelvic Organs: The uterus has been resected. There are no adnexal masses. The bladder is unremarkable. No bladder calculi. Vasculature: No aneurysms or other significant abnormality. Bones: No significant abnormality. Other: None. IMPRESSION: 1. No findings in the abdomen and pelvis to explain symptoms. 2. Diffuse fatty infiltration of the liver. 3. Prior cholecystectomy. 4. Subtle area of decreased attenuation in the uncinate process of the pancreas. Follow-up CT scan of the pancreas in 3-6 months might be considered to assure stability. This may need long-term follow-up as well in the future. RADIA
[2019-08-22] MEDS ORDERED: oxyCODONE/ACET 5/325 Prepack 4 PO STA (21:52)
[2019-08-22] MEDS ORDERED: ONDANSETRON ODT 4 MG Prepack 2 TL STA (21:52)
[2019-08-22 21:53] LABS: BILIRUBIN,URINE NEGATIVE (NEGATIVE); GLUCOSE, URINE (UA) >=1000 mg/dL (NEGATIVE); KETONES,URINE (UA) TRACE mg/dL (NEGATIVE); LEUKOCYTE ESTERASE, URINE NEGATIVE (NEGATIVE); NITRITE,URINE NEGATIVE (NEGATIVE); OCCULT BLOOD,URINE TRACE-INTA (NEGATIVE); PH,URINE 5.5 PH (5.0-7.5); PROTEIN,URINE NEGATIVE (NEGATIVE); UROBILINOGEN,URINE 0.2 (NORMAL) E.U./dL (NORMAL)
[2019-08-22 21:55] LABS: CLARITY,URINE CLEAR (CLEAR)
[2019-08-22 22:18] VITALS: BP 175/90
== END 2019-08-22 22:22 | disposition home or self-care (01) ==
LOC: ED 18:28
DX: R10.84 Generalized abdominal pain (principal); E11.9 Type 2 diabetes mellitus without complications; R93.3 Abnormal findings on diagnostic imaging of other parts of digestive tract; Z79.84 Long term (current) use of oral hypoglycemic drugs
CPT/HCPCS: 36415; 74177; 80053; 81003; 83690; 85025; 99283; 99284; J1170; Q9967; 81001; 87086

== ENCOUNTER 2020-04-27 19:38 | Emergency (ER) | payer SELFPAY ==
[2020-04-27 22:00] LABS: BILIRUBIN,URINE NEGATIVE (NEGATIVE); GLUCOSE, URINE (UA) >=1000 mg/dL (NEGATIVE); KETONES,URINE (UA) 40 mg/dL (NEGATIVE); LEUKOCYTE ESTERASE, URINE NEGATIVE (NEGATIVE); NITRITE,URINE NEGATIVE (NEGATIVE); OCCULT BLOOD,URINE TRACE-INTA (NEGATIVE); PH,URINE 5.5 PH (5.0-7.5); PROTEIN,URINE NEGATIVE (NEGATIVE); UROBILINOGEN,URINE 0.2 (NORMAL) E.U./dL (NORMAL)
[2020-04-27 22:02] LABS: CLARITY,URINE CLEAR (CLEAR)
[2020-04-27 22:03] LABS: HCG UR QUAL NEGATIVE
[2020-04-27 22:12] LABS: BASOPHILS # (AUTO) 0.1 10^3/uL (0.0-0.1); BASOPHILS % (AUTO) 0.8 %; EOSINOPHILS # (AUTO) 0.2 10^3/uL (0.0-0.7); EOSINOPHILS % (AUTO) 2.5 %; HGB - HEMOGLOBIN 14.9 g/dL (12.0-16.0); LYMPHOCYTES # (AUTO) 2.8 10^3/uL (1.5-3.5); LYMPHOCYTES % (AUTO) 35.5 %; MEAN CORPUSCULAR HEMOGLOBIN 29.3 pg (27.0-31.0); MEAN CORPUSCULAR HGB CONC 33.3 g/dL (32.0-36.0); MEAN PLATELET VOLUME 9.5 fL (7.9-10.8); MONOCYTES # (AUTO) 0.6 10^3/uL (0.0-1.0); MONOCYTES % (AUTO) 7.8 %; NEUTROPHILS # (AUTO) 4.1 10^3/uL (1.5-6.6); PLT - PLATELET COUNT 336 10^3/uL (130-450); RED BLOOD COUNT 5.08 10^6/uL (4.20-5.40); RED CELL DISTRIBUTION WIDTH 12.4 % (12.0-15.0); WHITE BLOOD COUNT 7.7 x10^3/uL (4.8-10.8)
[2020-04-27 22:27] LABS: ALBUMIN 4.2 g/dL (3.2-5.5); CALCIUM 9.8 mg/dL (8.5-10.3); CREATININE 0.8 mg/dL (0.4-1.0); TOTAL PROTEIN 8.4 g/dL (6.7-8.2)
--- NOTE | 2020-04-27 22:34 | ED Physician Documentation ---
History of Present Illness - Stated complaint Stated Complaint: BACK PX, ABD PX - Chief complaint Chief Complaint: Back Pain - History obtained from History obtained from: Patient - Additonal information Additional information: Patient is a 50-year-old female presents with epigastric discomfort nausea and vomiting. She reports she is supposed to be on metformin but has been unable to fill her prescriptions. She also reports chronic pancreatitis as well. Denies any fevers or jaundice-like symptoms. Denies excessive alcohol use. Review of Systems Constitutional: reports: Reviewed and negative Eyes: reports: Reviewed and negative Ears: reports: Reviewed and negative Nose: reports: Reviewed and negative Throat: reports: Reviewed and negative Cardiac: reports: Reviewed and negative Respiratory: reports: Reviewed and negative GI: reports: Abdominal Pain, Nausea, Vomiting : reports: Reviewed and negative Skin: reports: Reviewed and negative Musculoskeletal: reports: Reviewed and negative Neurologic: reports: Reviewed and negative Psychiatric: reports: Reviewed and negative Endocrine: reports: Reviewed and negative Immunocompromised: reports: Reviewed and negative PD PAST MEDICAL HISTORY - Past Medical History Cardiovascular: Hypertension Endocrine/Autoimmune: Type 2 diabetes GI: Pancreatitis, Cholelithiasis Psych: Depression, Anxiety - Past Surgical History Past Surgical History: Yes General: Cholecystectomy 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, Hysterectomy, Oophrectomy, Breast reduction - Present Medications Home Medications: Ambulatory Orders Medication Instructions Recorded Confirmed Hydrocodone/Acetaminophen [[place] 1 each PO Q6HR PRN #10 tablet 04/27/20 5-325 Tablet] Ondansetron Odt [Zofran Odt] 4 mg TL Q6H PRN #10 tablet 04/27/20 - Allergies Allergies/Adverse Reactions: Allergies Allergy/AdvReac Type Severity Reaction Status Date / Time metoclopramide [From Reglan] AdvReac Rash Verified 04/27/20 19:49 - Social History Does the pt smoke?: No Smoking Status: Never smoker Does the pt drink ETOH?: No Does the pt have substance abuse?: No - Immunizations Immunizations are current?: Yes - POLST Patient has POLST: No PD ED PE NORMAL - Vitals Vital signs reviewed: Yes - General General: Alert and oriented X 3, No acute distress, Well developed/nourished - HEENT HEENT: Atraumatic, PERRL - Neck Neck: Supple, no meningeal sign, No adenopathy - Cardiac Cardiac: RRR, No murmur, Strong equal pulses - Respiratory Respiratory: Clear bilaterally - Abdomen Abdomen: Normal bowel sounds, Soft, Non distended, No organomegaly, Other (Mild tenderness in the epigastrium no midline abdominal pulsatile mass nonsurgical abdomen) - Female Female : Deferred - Rectal Rectal: Deferred - Back Back: No CVA TTP, No spinal TTP - Derm Derm: Warm and dry - Extremities Extremities: No deformity, No tenderness to palpate, Normal ROM s pain, No edema, No calf tenderness / cord - Neuro Neuro: Alert and oriented X 3, 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, No motor deficit, No sensory deficit, Normal speech - Psych Psych: Normal mood, Normal affect Results - Vitals Vitals: Vital Signs - 24 hr 04/27/20 04/27/20 04/27/20 19:40 21:19 23:12 Temperature 36.0 C L Heart Rate 103 H 103 H 99 Respiratory 18 18 Rate Blood Pressure 182/105 H 182/105 H 146/99 H O2 Saturation 98 98 97 04/28/20 00:26 Temperature 36.1 C L Heart Rate 94 Respiratory 18 Rate Blood Pressure 130/95 H O2 Saturation 95 Oxygen O2 Source Room air - Labs Labs: Laboratory Tests 04/27/20 04/27/20 04/27/20 20:50 21:03 22:04 WBC 7.7 RBC 5.08 Hgb 14.9 Hct 44.7 MCV 88.0 MCH 29.3 MCHC 33.3 RDW 12.4 Plt Count 336 MPV 9.5 Neut # (Auto) 4.1 Lymph # (Auto) 2.8 [place] # (Auto) 0.6 Eos # (Auto) 0.2 Baso # (Auto) 0.1 Absolute Nucleated RBC 0.00 Nucleated RBC % 0.0 Sodium Potassium Chloride Carbon Dioxide Anion Gap BUN Creatinine Estimated GFR (MDRD) Glucose POC Whole Bld Glucose 254 H Calcium Total Bilirubin AST ALT Alkaline Phosphatase Total Protein Albumin Globulin Albumin/Globulin Ratio Lipase Urine Color YELLOW Urine Clarity CLEAR Urine pH 5.5 Ur Specific [place] >=1.030 H Urine Protein NEGATIVE Urine Glucose (UA) >=1000 H Urine Ketones 40 H Urine Occult Blood TRACE-INTA Urine Nitrite NEGATIVE Urine Bilirubin NEGATIVE Urine Urobilinogen 0.2 (NORMAL) Ur Leukocyte Esterase NEGATIVE Ur Microscopic Review NOT INDICATED Urine Culture Comments NOT INDICATED Urine HCG, Qual NEGATIVE 04/27/20 22:04 WBC RBC Hgb Hct MCV MCH MCHC RDW Plt Count MPV Neut # (Auto) Lymph # (Auto) [place] # (Auto) Eos # (Auto) Baso # (Auto) Absolute Nucleated RBC Nucleated RBC % Sodium 132 L Potassium 3.7 Chloride 96 L Carbon Dioxide 26 Anion Gap 10.0 BUN 14 Creatinine 0.8 Estimated GFR (MDRD) 76 L Glucose 270 H POC Whole Bld Glucose Calcium 9.8 Total Bilirubin 1.0 AST 20 ALT 32 Alkaline Phosphatase 61 Total Protein 8.4 H Albumin 4.2 Globulin 4.2 Albumin/Globulin Ratio 1.0 Lipase 97 H Urine Color Urine Clarity Urine pH Ur Specific [place] Urine Protein Urine Glucose (UA) Urine Ketones Urine Occult Blood Urine Nitrite Urine Bilirubin Urine Urobilinogen Ur Leukocyte Esterase Ur Microscopic Review Urine Culture Comments Urine HCG, Qual PD MEDICAL DECISION MAKING - ED course Complexity details: reviewed results, re-evaluated patient, d/w patient ED course: 50-year-old female with epigastric discomfort with a history of chronic pancreat itis has mild pancreatitis today on physical exam. She is also noted noted to be hyperglycemic but there is no anion gap. She was given a liter of IV fluids as well as IV analgesics and antiemetics she is observed for several hours her pain is resolved now she like to be discharged home. Will encourage close follow-up with a primary care provider and return the emergency department any concerns to include worsening pain or fevers. Departure - Departure Disposition: 01 Home, Self Care Clinical Impression: Hyperglycemia, Hyponatremia Chronic pancreatitis Qualifiers: Pancreatitis type: unspecified pancreatitis type Qualified Code(s): K86.1 - Other chronic pancreatitis Condition: Stable Instructions: ED Pancreatitis Follow-Up: Henry Mclean MD [Provider Admit Priv/Credential] - Prescriptions: Hydrocodone/Acetaminophen [[place] 5-325 Tablet] 1 each PO Q6HR PRN #10 tablet PRN Reason: Pain Ondansetron Odt [Zofran Odt] 4 mg TL Q6H PRN #10 tablet PRN Reason: Nausea / Vomiting Comments: Hydrate well. Please establish care with a primary care provider and follow-up next week. Return the emergency department with any concerns. Discharge Date/Time: 04/28/20 00:33
[2020-04-27] MEDS ORDERED: ONDANSETRON 4 MG/2 ML VIAL IVP STA (22:57)
[2020-04-27] MEDS ORDERED: HYDROmorphone 0.5 MG/0.5 ML SYRINGE IVP STA (22:57)
[2020-04-27] MEDS ORDERED: SODIUM CHLORIDE 0.9% 1,000 ML IV STA (22:57)
[2020-04-28 00:28] VITALS: BP 130/95
== END 2020-04-28 00:33 | disposition home or self-care (01) ==
LOC: ED 19:38
DX: K86.1 Other chronic pancreatitis (principal); E11.65 Type 2 diabetes mellitus with hyperglycemia; Z79.84 Long term (current) use of oral hypoglycemic drugs; E87.1 Hypo-osmolality and hyponatremia; I10 Essential (primary) hypertension
CPT/HCPCS: 36415; 80053; 81003; 81025; 83690; 85025; 96361; 96374; 96375; 99283; J1170; 81001; 87086

== ENCOUNTER 2020-08-15 22:34 | Emergency (ER) | payer MEDICAID ==
[2020-08-15] MEDS ORDERED: SODIUM CHLORIDE 0.9% 1,000 ML IV STA (22:59)
[2020-08-15] MEDS ORDERED: ONDANSETRON 4 MG/2 ML VIAL IVP STA (22:59)
[2020-08-15 23:14] LABS: BASOPHILS # (AUTO) 0.1 10^3/uL (0.0-0.1); BASOPHILS % (AUTO) 0.7 %; EOSINOPHILS # (AUTO) 0.2 10^3/uL (0.0-0.7); EOSINOPHILS % (AUTO) 1.7 %; HGB - HEMOGLOBIN 15.9 g/dL (12.0-16.0); LYMPHOCYTES % (AUTO) 23.3 %; MEAN CORPUSCULAR HEMOGLOBIN 29.9 pg (27.0-31.0); MEAN CORPUSCULAR HGB CONC 34.6 g/dL (32.0-36.0); MEAN CORPUSCULAR VOLUME 86.4 fL (81.0-99.0); MEAN PLATELET VOLUME 9.5 fL (7.9-10.8); MONOCYTES % (AUTO) 7.4 %; NEUTROPHILS # (AUTO) 8.7 10^3/uL (1.5-6.6); NEUTROPHILS % (AUTO) 66.7 %; PLT - PLATELET COUNT 376 10^3/uL (130-450); RED BLOOD COUNT 5.31 10^6/uL (4.20-5.40); RED CELL DISTRIBUTION WIDTH 12.5 % (12.0-15.0)
[2020-08-15] MEDS ORDERED: HYDROmorphone 1 MG/ML CARPUJECT IVP STA (23:20)
[2020-08-15 23:23] LABS: ALBUMIN 4.6 g/dL (3.2-5.5); ALBUMIN/GLOBULIN RATIO 1.1 (1.0-2.2); BILIRUBIN,TOTAL 0.9 mg/dL (0.2-1.0); CALCIUM 9.8 mg/dL (8.5-10.3); CREATININE 0.8 mg/dL (0.4-1.0); TOTAL PROTEIN 8.9 g/dL (6.7-8.2)
--- NOTE | 2020-08-15 23:23 | ED Physician Documentation ---
History of Present Illness - Stated complaint Stated Complaint: ADB PX, NAUSEA - Chief complaint Chief Complaint: Abd Pain - History obtained from History obtained from: Patient - Additonal information Additional information: She comes emergency department chief complaint of upper abdominal pain. She states that she has had these symptoms many times before and that she has chronic pancreatitis which flares up occasionally. Patient states that this feels the same, but that her home meds have not been able to help the pain enough. Patient ruler takes hydrocodone when she has a flareup. She states last time she was here was several months ago and that she has not required any further refills on her hydrocodone since. She states she has been vomiting for the last couple days. No fevers or chills. No jaundice. The patient is feeling pain across her upper abdomen. No cough or shortness of breath. No chest pain. No back pain. No dysuria. No other complaints at this time. Review of Systems Ten Systems: 10 systems reviewed and negative Constitutional: reports: Reviewed and negative Eyes: reports: Reviewed and negative Ears: reports: Reviewed and negative Nose: reports: Reviewed and negative Throat: reports: Reviewed and negative Cardiac: reports: Reviewed and negative Respiratory: reports: Reviewed and negative GI: reports: Abdominal Pain, Nausea, Vomiting : reports: Reviewed and negative Skin: reports: Reviewed and negative Musculoskeletal: reports: Reviewed and negative Neurologic: reports: Reviewed and negative Psychiatric: reports: Reviewed and negative Endocrine: reports: Reviewed and negative Immunocompromised: reports: Reviewed and negative PD PAST MEDICAL HISTORY - Past Medical History Past Medical History: Yes Cardiovascular: Hypertension Endocrine/Autoimmune: Type 2 diabetes GI: Pancreatitis, Cholelithiasis Psych: Depression, Anxiety - Past Surgical History Past Surgical History: Yes General: Cholecystectomy 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, Hysterectomy, Oophrectomy, Breast reduction - Present Medications Home Medications: Ambulatory Orders Medication Instructions Recorded Confirmed Hydrocodone/Acetaminophen [[place] 1 each PO Q6HR PRN #10 tablet 04/27/20 08/15/20 5-325 Tablet] Ondansetron Odt [Zofran Odt] 4 mg TL Q6H PRN #10 tablet 04/27/20 08/15/20 HYDROcod/ACETAM 5/325 [[place] 5/325] 1 - 2 ea PO Q6H PRN #15 tablet 08/16/20 Ondansetron Odt [Zofran Odt] 4 mg TL Q6H PRN #10 tablet 08/16/20 - Allergies Allergies/Adverse Reactions: Allergies Allergy/AdvReac Type Severity Reaction Status Date / Time metoclopramide [From Reglan] AdvReac Rash Verified 04/27/20 19:49 - Social History Does the pt smoke?: No Smoking Status: Never smoker Does the pt drink ETOH?: No Does the pt have substance abuse?: No - Immunizations Immunizations are current?: Yes - POLST Patient has POLST: No PD ED PE NORMAL - Vitals Vital signs reviewed: Yes - General General: Alert and oriented X 3, No acute distress (Patient appears somewhat uncomfortable but is in no apparent distress.) - HEENT HEENT: Atraumatic, PERRL, EOMI, Moist mucous membranes - Neck Neck: Supple, no meningeal sign - Cardiac Cardiac: RRR, No murmur - Respiratory Respiratory: No respiratory distress, Clear bilaterally - Abdomen Abdomen: Soft, Non distended, Other (Moderate tenderness across upper abdomen, no rebound or guarding. Mild lower abdominal tenderness diffusely.) - Derm Derm: Normal color, Warm and dry, No rash - Extremities Extremities: No deformity, No edema, No calf tenderness / cord - Neuro Neuro: Alert and oriented X 3, Other (Intact.) - Psych Psych: Normal mood, Normal affect Results - Vitals Vitals: Vital Signs - 24 hr 08/15/20 08/15/20 08/16/20 22:38 22:41 00:41 Temperature 36.4 C L 37.3 C Heart Rate 120 H 103 H 82 Respiratory 14 18 16 Rate Blood Pressure 163/110 H 157/96 H 148/89 H O2 Saturation 100 97 98 08/16/20 00:55 Temperature 37.3 C Heart Rate 85 Respiratory 16 Rate Blood Pressure 148/89 H O2 Saturation 98 Oxygen O2 Source Room air - Labs Labs: Laboratory Tests 08/15/20 08/15/20 22:54 22:54 WBC 13.0 H RBC 5.31 Hgb 15.9 Hct 45.9 MCV 86.4 MCH 29.9 MCHC 34.6 RDW 12.5 Plt Count 376 MPV 9.5 Neut # (Auto) 8.7 H Lymph # (Auto) 3.0 [place] # (Auto) 1.0 Eos # (Auto) 0.2 Baso # (Auto) 0.1 Absolute Nucleated RBC 0.00 Nucleated RBC % 0.0 Sodium 132 L Potassium 3.8 Chloride 95 L Carbon Dioxide 25 Anion Gap 12.0 BUN 13 Creatinine 0.8 Estimated GFR (MDRD) 76 L Glucose 350 H Calcium 9.8 Total Bilirubin 0.9 AST 18 ALT 32 Alkaline Phosphatase 73 Total Protein 8.9 H Albumin 4.6 Globulin 4.3 H Albumin/Globulin Ratio 1.1 Lipase 27 PD MEDICAL DECISION MAKING - ED course Complexity details: reviewed results, re-evaluated patient, considered differential, d/w patient ED course: Patient was treated symptomatically with IV fluids, Dilaudid, and Zofran. She was worked up with laboratory studies, Which showed a normal lipase and an elevated blood glucose at 350. I spoke with the patient regarding her results, and we have discussed the need for better blood sugar control. Patient states that she did drink a bottle of Sprite today, and thinks this may be what put her sugars up. However, patient does admit to having her sugars not very well controlled after over the last couple of months, and states that she will try to do a better job of monitoring and watching her diet. The patient is feeling better after Dilaudid, Zofran, and Phenergan, and is ready to go home. We have discussed the usual indications for return. Departure - Departure Disposition: 01 Home, Self Care Clinical Impression: Abdominal pain Qualifiers: Abdominal location: upper abdomen, unspecified Qualified Code(s): R10.10 - Upper abdominal pain, unspecified Vomiting Qualifiers: Vomiting type: bilious vomiting Nausea presence: with nausea Qualified Code(s): R11.14 - Bilious vomiting Condition: Stable Instructions: ED Abdominal Pain Unkn Cause, ED Nausea Vomiting Prescriptions: HYDROcod/ACETAM 5/325 [[place] 5/325] 1 - 2 ea PO Q6H PRN #15 tablet PRN Reason: Pain Ondansetron Odt [Zofran Odt] 4 mg TL Q6H PRN #10 tablet PRN Reason: Nausea / Vomiting Comments: Your lipase is normal tonight. Your blood sugar is quite high at 350, and it is very important that you work with your doctor on a regimen that will keep the sugar quite a bit better controlled than this. You may drink clear liquids, but please do not eat any food until your vomiting is doing better. Once you have gone 8 hours without vomiting, you may try small amounts of simple starchy foods , such as top Ramen or saltine crackers. If these are tolerated, then you may progress your diet as tolerated. You may take the nausea and pain medication as needed. Discharge Date/Time: 08/16/20 00:56
[2020-08-16] MEDS ORDERED: PROMETHAZINE INJ 25 MG in SODIUM CHLORIDE 0.9% 50 ML IV STA (00:02)
[2020-08-16] MEDS ORDERED: PROMETHAZINE 25 MG/1 ML VIAL ONE (00:15)
[2020-08-16] MEDS ORDERED: HYDROmorphone 0.5 MG/0.5 ML SYRINGE IVP STA (00:34)
[2020-08-16 00:55] VITALS: BP 148/89
== END 2020-08-16 00:56 | disposition home or self-care (01) ==
LOC: ED 22:34
DX: R11.2 Nausea with vomiting, unspecified (principal); R10.10 Upper abdominal pain, unspecified; I10 Essential (primary) hypertension; E11.65 Type 2 diabetes mellitus with hyperglycemia
CPT/HCPCS: 36415; 80053; 83690; 85025; 96365; 96375; 96376; 99284; J1170; J7040

== ENCOUNTER 2020-09-05 07:28 | Outpatient (CLI) | payer MEDICAID ==
[2020-09-05 11:59] LABS: BASOPHILS # (AUTO) 0.1 10^3/uL (0.0-0.1); BASOPHILS % (AUTO) 1.2 %; EOSINOPHILS # (AUTO) 0.2 10^3/uL (0.0-0.7); EOSINOPHILS % (AUTO) 3.2 %; HGB - HEMOGLOBIN 15.1 g/dL (12.0-16.0); LYMPHOCYTES % (AUTO) 52.8 %; MEAN CORPUSCULAR HEMOGLOBIN 29.8 pg (27.0-31.0); MEAN CORPUSCULAR HGB CONC 33.9 g/dL (32.0-36.0); MEAN CORPUSCULAR VOLUME 88.1 fL (81.0-99.0); MEAN PLATELET VOLUME 10.2 fL (7.9-10.8); MONOCYTES # (AUTO) 0.5 10^3/uL (0.0-1.0); MONOCYTES % (AUTO) 9.6 %; NEUTROPHILS # (AUTO) 1.9 10^3/uL (1.5-6.6); PLT - PLATELET COUNT 348 10^3/uL (130-450); RED BLOOD COUNT 5.06 10^6/uL (4.20-5.40); RED CELL DISTRIBUTION WIDTH 12.5 % (12.0-15.0); WHITE BLOOD COUNT 5.6 x10^3/uL (4.8-10.8)
[2020-09-05 12:22] LABS: CREATININE,URINE 206.5 mg/dL; MICROALBUMIN,URINE 3.1 mg/dL (0-300.0)
[2020-09-05 12:39] LABS: ALBUMIN 4.1 g/dL (3.2-5.5); ALBUMIN/GLOBULIN RATIO 1.1 (1.0-2.2); ALKALINE PHOSPHATASE 64 IU/L (42-121); ALT ALANINE AMINOTRANSFERASE 28 IU/L (10-60); AST ASPARTATE AMINOTRANSFERASE 16 IU/L (10-42); BILIRUBIN,TOTAL 0.5 mg/dL (0.2-1.0); BUN - BLOOD UREA NITROGEN 15 mg/dL (6-20); CALCIUM 10.1 mg/dL (8.5-10.3); CARBON DIOXIDE - CO2 23 mmol/L (21-32); CHLORIDE 97 mmol/L (101-111); CHOL/HDL RATIO 4.1 (<4.4); CHOLESTEROL 189 mg/dL; CREATININE 0.9 mg/dL (0.4-1.0); GLUCOSE 307 mg/dL (70-100); HDL CHOLESTEROL 46 mg/dL; LDL CHOLESTEROL,CALCULATED 93 mg/dL; TOTAL PROTEIN 7.8 g/dL (6.7-8.2); VLDL CHOLESTEROL 50 mg/dL
[2020-09-05 12:50] LABS: HEMOGLOBIN A1c% 12.3 % (4.27-6.07)
== END 2020-09-05 07:29 | disposition home or self-care (01) ==
LOC: LAB.N 07:28
PROVIDERS: ATTEND Family Medicine
DX: E11.9 Type 2 diabetes mellitus without complications (principal); Z13.9 Encounter for screening, unspecified; I10 Essential (primary) hypertension
CPT/HCPCS: 36415; 80053; 80061; 82043; 82570; 83036; 83721; 84443; 85025

== ENCOUNTER 2020-09-27 16:08 | Emergency (ER) | payer MEDICAID ==
[2020-09-27] MEDS ORDERED: SODIUM CHLORIDE 0.9% 1,000 ML IV STA (16:46)
[2020-09-27] MEDS ORDERED: ONDANSETRON 4 MG/2 ML VIAL IVP STA (16:46)
[2020-09-27] MEDS ORDERED: MORPHINE 2 MG/ML CARPUJECT IVP STA (16:58)
--- NOTE | 2020-09-27 17:01 | ED Physician Documentation ---
History of Present Illness - Stated complaint Stated Complaint: ABD PX - Chief complaint Chief Complaint: Abd Pain - Additonal information Additional information: 50-year-old female presents emergency department for evaluation of acute onset right lower quadrant abdominal pain that began 2 days ago. Associated nausea and vomiting. No fevers. Denies dysuria urgency or frequency. 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 Past surgical history also includes cholecystectomy abdominal hysterectomy. Review of Systems Constitutional: denies: Fever, Chills Eyes: reports: Reviewed and negative Ears: reports: Reviewed and negative Nose: reports: Reviewed and negative Throat: reports: Reviewed and negative Cardiac: reports: Reviewed and negative Respiratory: reports: Reviewed and negative GI: reports: Abdominal Pain, Nausea, Vomiting : denies: Dysuria, Frequency, Hesitancy Skin: denies: Rash, Lesions Musculoskeletal: reports: Reviewed and negative Neurologic: reports: Reviewed and negative PD PAST MEDICAL HISTORY - Past Medical History Cardiovascular: Hypertension Endocrine/Autoimmune: Type 2 diabetes GI: Pancreatitis, Cholelithiasis Psych: Depression, Anxiety - Past Surgical History Past Surgical History: Yes General: Cholecystectomy 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, Hysterectomy, Oophrectomy, Breast reduction - Present Medications Home Medications: Ambulatory Orders Medication Instructions Recorded Confirmed Hydrocodone/Acetaminophen [[place] 1 each PO Q6HR PRN #10 tablet 04/27/20 08/15/20 5-325 Tablet] Ondansetron Odt [Zofran Odt] 4 mg TL Q6H PRN #10 tablet 04/27/20 08/15/20 HYDROcod/ACETAM 5/325 [[place] 5/325] 1 - 2 ea PO Q6H PRN #15 tablet 08/16/20 Ondansetron Odt [Zofran Odt] 4 mg TL Q6H PRN #10 tablet 08/16/20 HYDROcod/ACETAM 5/325 [[place] 5/325] 1 - 2 ea PO Q6H PRN #15 09/27/20 - Allergies Allergies/Adverse Reactions: Allergies Allergy/AdvReac Type Severity Reaction Status Date / Time metoclopramide [From Reglan] AdvReac Rash Verified 04/27/20 19:49 - Social History Does the pt smoke?: No Smoking Status: Never smoker Does the pt drink ETOH?: No Does the pt have substance abuse?: No - Immunizations Immunizations are current?: Yes - POLST Patient has POLST: No PD ED PE EXPANDED - General General: Alert, In Pain, In distress - Cardiac Cardiac: Regular Rate, Tachy, Radial strong equal, Pedal strong equal, Cap refill < 2 sec - Respiratory Respiratory: Clear to ausultation ansley. No: Distress, Labored - Abdomen Abdomen: Normal Bowel sounds, Tender to palpation, Rebound, Guarding, RLQ (Focal right lower quadrant tenderness with guarding and rebound. Exam is somewhat limited secondary to morbid obesity.) - Derm Derm: Normal color, Warm and dry. No: Rash - Neuro Neuro: Alert and Oriented X 3, CNII-XII intact. No: Confused, Disoriented - GCS Eye Opening: Spontaneous Motor: Obeys Commands Verbal: Oriented Total: 15 Results - Vitals Vitals: Vital Signs - 24 hr 09/27/20 09/27/20 09/27/20 16:11 17:02 19:12 Temperature 36.8 C Heart Rate 118 H 92 88 Respiratory 20 20 18 Rate Blood Pressure 142/87 H 153/99 H 147/97 H O2 Saturation 98 98 99 Oxygen O2 Source Room air - Labs Labs: Laboratory Tests 09/27/20 09/27/20 09/27/20 17:05 17:21 17:21 WBC 7.0 RBC 5.04 Hgb 14.8 Hct 44.2 MCV 87.7 MCH 29.4 MCHC 33.5 RDW 12.2 Plt Count 368 MPV 9.4 Neut # (Auto) 3.3 Lymph # (Auto) 2.9 [place] # (Auto) 0.7 Eos # (Auto) 0.2 Baso # (Auto) 0.1 Absolute Nucleated RBC 0.00 Nucleated RBC % 0.0 Sodium 130 L Potassium 3.7 Chloride 96 L Carbon Dioxide 24 Anion Gap 10.0 BUN 16 Creatinine 0.8 Estimated GFR (MDRD) 76 L Glucose 322 H Calcium 9.5 Total Bilirubin 0.8 AST 16 ALT 26 Alkaline Phosphatase 58 Total Protein 7.8 Albumin 4.0 Globulin 3.8 Albumin/Globulin Ratio 1.1 Lipase 33 HCG, Quant Urine Color YELLOW Urine Clarity HAZY Urine pH 6.5 Ur Specific [place] 1.020 Urine Protein NEGATIVE Urine Glucose (UA) >=1000 H Urine Ketones NEGATIVE Urine Occult Blood NEGATIVE Urine Nitrite NEGATIVE Urine Bilirubin NEGATIVE Urine Urobilinogen 0.2 (NORMAL) Ur Leukocyte Esterase NEGATIVE Urine RBC 0-5 Urine WBC 6-10 H Ur Squamous Epith Cells MANY Squamous H Urine Bacteria Few Urine Yeast PRESENT Ur Microscopic Review INDICATED Urine Culture Comments NOT INDICATED Serum Ketones NEGATIVE 09/27/20 17:21 WBC RBC Hgb Hct MCV MCH MCHC RDW Plt Count MPV Neut # (Auto) Lymph # (Auto) [place] # (Auto) Eos # (Auto) Baso # (Auto) Absolute Nucleated RBC Nucleated RBC % Sodium Potassium Chloride Carbon Dioxide Anion Gap BUN Creatinine Estimated GFR (MDRD) Glucose Calcium Total Bilirubin AST ALT Alkaline Phosphatase Total Protein Albumin Globulin Albumin/Globulin Ratio Lipase HCG, Quant 7.66 Urine Color Urine Clarity Urine pH Ur Specific [place] Urine Protein Urine Glucose (UA) Urine Ketones Urine Occult Blood Urine Nitrite Urine Bilirubin Urine Urobilinogen Ur Leukocyte Esterase Urine RBC Urine WBC Ur Squamous Epith Cells Urine Bacteria Urine Yeast Ur Microscopic Review Urine Culture Comments Serum Ketones - Rads (name of study) CT abd Radiology: Final report received (No acute inflammatory findings. Appendix is normal. Mild hepatic steatosis.) PD MEDICAL DECISION MAKING - ED course Complexity details: reviewed results, re-evaluated patient, considered differential, d/w patient ED course: 50-year-old female presents emergency department with 3 days of acute right lower quadrant pain with associated vomiting. She does have an extensive surgical history but does retain her appendix. Screening labs show no significant leukocytosis. The urine suggest infection but is quite contaminated with squames. She has no urinary symptoms therefore will defer treatment of the urine unless the culture is positive. However given the focal tenderness in the right lower quadrant we did proceed with a CT of the abdomen which was unremarkable and negative for appendicitis. On reexam it does appear that the focus of the pain lies within the pannus of her body itself. She reports that it feels much like a muscle spasm. She was given Dilaudid morphine as well as Valium here in the emergency department with moderate relief of pain. Patient will be discharged home with a recommendation to find a way to attempt to support the pannus as excessive weight may be causing strain or tenderness within the pannus itself. Limited prescription for [place] will be written. Emergent return precautions discussed. Departure - Departure Disposition: Home, Self Care Clinical Impression: RLQ abdominal pain, Abdominal pannus Condition: Stable Record reviewed to determine appropriate education?: Yes Prescriptions: HYDROcod/ACETAM 5/325 [[place] 5/325] 1 - 2 ea PO Q6H PRN #15 PRN Reason: Pain Comments: Crystal I hope that you are feeling better soon. Reassuringly the x-ray of your abdomen does not show a problem with your appendix. As we discussed I think that the pain may be coming from within your pannus. It is possible that excessive weight on this is causing strain or pull. If you can find supportive garments to prevent it from pain may be helpful. I have prescribed a limited amount of hydrocodone to help with pain at home. If you find that your symptoms are worsening, you have fevers, uncontrolled vomiting or any other emergent concerns please return for a second evaluation
[2020-09-27 17:11] LABS: BILIRUBIN,URINE NEGATIVE (NEGATIVE); GLUCOSE, URINE (UA) >=1000 mg/dL (NEGATIVE); KETONES,URINE (UA) NEGATIVE (NEGATIVE); LEUKOCYTE ESTERASE, URINE NEGATIVE (NEGATIVE); NITRITE,URINE NEGATIVE (NEGATIVE); OCCULT BLOOD,URINE NEGATIVE (NEGATIVE); PH,URINE 6.5 PH (5.0-7.5); PROTEIN,URINE NEGATIVE (NEGATIVE); UROBILINOGEN,URINE 0.2 (NORMAL) E.U./dL (NORMAL)
[2020-09-27 17:16] LABS: CLARITY,URINE HAZY (CLEAR)
[2020-09-27 17:17] LABS: BACTERIA,URINE Few /HPF (None Seen); RBC,URINE 0-5 /HPF (0-5); SQUAMOUS EPITHELIAL CELL,UR MANY Squamous (<= Few); YEAST,URINE PRESENT
[2020-09-27] MEDS ORDERED: MORPHINE 10 MG/ML VIAL IVP STA (17:33)
[2020-09-27] MEDS ORDERED: IOVERSOL 320 100 ML VIAL IVP ONE ×2 (17:35→18:41)
[2020-09-27 17:50] LABS: BASOPHILS # (AUTO) 0.1 10^3/uL (0.0-0.1); BASOPHILS % (AUTO) 1.1 %; EOSINOPHILS # (AUTO) 0.2 10^3/uL (0.0-0.7); EOSINOPHILS % (AUTO) 2.1 %; HGB - HEMOGLOBIN 14.8 g/dL (12.0-16.0); LYMPHOCYTES # (AUTO) 2.9 10^3/uL (1.5-3.5); LYMPHOCYTES % (AUTO) 40.6 %; MEAN CORPUSCULAR HEMOGLOBIN 29.4 pg (27.0-31.0); MEAN CORPUSCULAR HGB CONC 33.5 g/dL (32.0-36.0); MEAN CORPUSCULAR VOLUME 87.7 fL (81.0-99.0); MEAN PLATELET VOLUME 9.4 fL (7.9-10.8); MONOCYTES # (AUTO) 0.7 10^3/uL (0.0-1.0); MONOCYTES % (AUTO) 9.2 %; NEUTROPHILS # (AUTO) 3.3 10^3/uL (1.5-6.6); NEUTROPHILS % (AUTO) 46.7 %; PLT - PLATELET COUNT 368 10^3/uL (130-450); RED BLOOD COUNT 5.04 10^6/uL (4.20-5.40); RED CELL DISTRIBUTION WIDTH 12.2 % (12.0-15.0)
[2020-09-27 17:51] LABS: ALBUMIN/GLOBULIN RATIO 1.1 (1.0-2.2); ALKALINE PHOSPHATASE 58 IU/L (42-121); ALT ALANINE AMINOTRANSFERASE 26 IU/L (10-60); AST ASPARTATE AMINOTRANSFERASE 16 IU/L (10-42); BILIRUBIN,TOTAL 0.8 mg/dL (0.2-1.0); BUN - BLOOD UREA NITROGEN 16 mg/dL (6-20); CALCIUM 9.5 mg/dL (8.5-10.3); CARBON DIOXIDE - CO2 24 mmol/L (21-32); CHLORIDE 96 mmol/L (101-111); CREATININE 0.8 mg/dL (0.4-1.0); GLUCOSE 322 mg/dL (70-100); LIPASE 33 U/L (22-51); TOTAL PROTEIN 7.8 g/dL (6.7-8.2)
[2020-09-27 17:52] LABS: KETONES, SERUM (ACETEST) NEGATIVE (NEGATIVE)
--- NOTE | 2020-09-27 19:06 | CT Report ---
PROCEDURE: Abdomen/Pelvis W INDICATIONS: RLQ abd pain TECHNIQUE: After the administration of IV contrast, 5 mm thick sections acquired from the diaphragms to the symp hysis. 5 mm thick coronal and sagittal reformats were acquired. For radiation dose reduction, the f ollowing was used: automated exposure control, adjustment of mA and/or kV according to patient size. COMPARISON: CT abdomen pelvis 08/22/2019 FINDINGS: Image quality: Excellent. ABDOMEN: Lung bases: Lung bases are clear. Heart size is normal. Solid organs: Liver is enlarged with steatosis. The spleen is Normal in size and enhancement. Gallb ladder has been removed Biliary system is non dilated. Pancreas enhances normally. No adrenal nodu les. Kidneys demonstrate normal size and enhancement, without hydronephrosis. Peritoneum and bowel: Bowel loops demonstrate normal wall thickness and caliber. No free fluid or a ir. Appendix is normal. Nodes and vessels: No retroperitoneal or mesenteric adenopathy by size criteria. Aorta and inferior vena cava are normal in size. Miscellaneous: No ventral hernias. PELVIS: Genitourinary: Bladder wall thickness is normal. Miscellaneous: No inguinal hernias or adenopathy. Bones: No suspicious bony lesions. No vertebral body compression fractures. IMPRESSION: 1. No acute intra-abdominal or pelvic process. Reviewed by: Debora Ramirez MD on 09/27/2020 6:05 PM [facility] Approved by: Debora Ramirez MD on 09/27/2020 6:05 PM [facility] Station ID: [id number]
[2020-09-27] MEDS ORDERED: diazePAM INJ 5 MG/ML SYRINGE IVP STA (19:10)
[2020-09-27 19:13] VITALS: BP 147/97
== END 2020-09-27 19:50 | disposition home or self-care (01) ==
LOC: ED 16:08
DX: R10.31 Right lower quadrant pain (principal); E65 Localized adiposity; Q45.3 Other congenital malformations of pancreas and pancreatic duct; I10 Essential (primary) hypertension; E11.9 Type 2 diabetes mellitus without complications; E66.01 Morbid (severe) obesity due to excess calories
CPT/HCPCS: 36415; 74177; 80053; 81001; 82009; 83690; 84702; 85025; 96361; 96374; 96375; 99283; 99284; Q9967; 81003; 87086

== ENCOUNTER 2020-11-02 23:54 | Emergency (ER) | payer MEDICAID ==
--- NOTE | 2020-11-03 00:12 | ED Physician Documentation ---
PD HPI ABD PAIN - Stated complaint Stated Complaint: AB/BACK PX - Chief complaint Chief Complaint: Abd Pain - History obtained from History obtained from: Patient - History of Present Illness Timing - onset: Today Timing - details: Abrupt onset, Constant, Waxing and waning Pain level now: 8 Quality: Pain Location: RUQ, Epigastric, LUQ Improved by: Other (nothing) Worsened by: Palpation Associated symptoms: Nausea, Vomiting. No: Fever, Diarrhea, Constipation Similar symptoms before: Diagnosis (pancreatitis) - Additional information Additional information: patient complains of sudden onset of pain across her upper abdomen since earlier this afternoon. It is a socially with nausea and vomiting. She says I believe Im having another bout of my pancreatitis. She took one tablet of Vicodin this afternoon without relief. Review of Systems Constitutional: reports: Reviewed and negative Cardiac: reports: Reviewed and negative Respiratory: reports: Reviewed and negative GI: reports: Abdominal Pain, Nausea, Vomiting. denies: Constipation, Diarrhea : denies: Dysuria, Frequency PD PAST MEDICAL HISTORY - Past Medical History Past Medical History: Yes Cardiovascular: Hypertension Endocrine/Autoimmune: Type 2 diabetes GI: Pancreatitis, Cholelithiasis Psych: Depression, Anxiety - Past Surgical History Past Surgical History: Yes General: Cholecystectomy Ortho: Knee replacement /TRANSPLANT RN: Tubal ligation, Hysterectomy, Oophrectomy, Breast reduction - Present Medications Home Medications: Ambulatory Orders Medication Instructions Recorded Confirmed Hydrocodone/Acetaminophen [Angier 1 each PO Q6HR PRN #10 tablet 04/27/20 11/03/20 5-325 Tablet] HYDROcod/ACETAM 5/325 [Angier 5/325] 1 - 2 tablet PO Q6H PRN #10 tablet 11/03/20 Insulin Glargine [Lantus Solostar] 40 units SQ DAILY 11/03/20 11/03/20 Lisinopril [Zestril] 20 mg PO DAILY 11/03/20 11/03/20 Ondansetron Odt [Zofran] 4 mg TL Q6H PRN #10 tablet 11/03/20 - Allergies Allergies/Adverse Reactions: Allergies Allergy/AdvReac Type Severity Reaction Status Date / Time metoclopramide [From Reglan] AdvReac Rash Verified 11/03/20 00:05 - Social History Does the pt smoke?: No Smoking Status: Never smoker Does the pt drink ETOH?: No Does the pt have substance abuse?: No - Immunizations Immunizations are current?: Yes - POLST Patient has POLST: No PD ED PE NORMAL - Vitals Vital signs reviewed: Yes - General General: Alert and oriented X 3, Well developed/nourished, Other (appears to be uncomfortable) - Cardiac Cardiac: No murmur - Respiratory Respiratory: No respiratory distress, Clear bilaterally - Abdomen Abdomen: Soft, Non distended - Back Back: No CVA TTP - Derm Derm: Normal color, Warm and dry - Extremities Extremities: No edema PD ED PE EXPANDED - Cardiac Cardiac: Tachy, Regular Rhythm - Abdomen Abdomen: Tender to palpation, Epigastric Results - Vitals Vitals: Vital Signs - 24 hr 11/03/20 11/03/20 11/03/20 00:04 00:05 01:52 Temperature 36.5 C 36.5 C 36.5 C Heart Rate 102 H 102 H 94 Respiratory 19 19 16 Rate Blood Pressure 145/93 H 145/93 H 117/90 H O2 Saturation 100 100 100 11/03/20 11/03/20 03:00 03:33 Temperature 36.6 C 36.6 C Heart Rate 89 89 Respiratory 17 17 Rate Blood Pressure 129/85 H 129/85 H O2 Saturation 99 99 Oxygen O2 Source Room air - Labs Labs: Laboratory Tests 11/03/20 11/03/20 00:20 00:20 WBC 8.9 RBC 5.35 Hgb 15.8 Hct 47.1 H MCV 88.0 MCH 29.5 MCHC 33.5 RDW 12.2 Plt Count 417 MPV 9.0 Neut # (Auto) 3.9 Lymph # (Auto) 3.9 H Coleman # (Auto) 0.8 Eos # (Auto) 0.2 Baso # (Auto) 0.1 Absolute Nucleated RBC 0.00 Nucleated RBC % 0.0 Sodium 135 Potassium 3.6 Chloride 96 L Carbon Dioxide 26 Anion Gap 13.0 BUN 18 Creatinine 0.8 Estimated GFR (MDRD) 76 L Glucose 235 H Calcium 10.0 Total Bilirubin 0.6 AST 18 ALT 25 Alkaline Phosphatase 69 Total Protein 8.8 H Albumin 4.4 Globulin 4.4 H Albumin/Globulin Ratio 1.0 Lipase 34 PD MEDICAL DECISION MAKING - ED course Complexity details: reviewed old records, reviewed results, re-evaluated patient, considered differential, d/w patient ED course: patient presents with Idanha pain that she says is consistent with previous episodes of pancreatitis. Pain was well-controlled with two doses of the lauded, 1 mg IV each dose. She was also given Phenergan and Zofran for her nausea. Her blood tests are unremarkable, hyperglycemia noted which is not unusual for her. Results discussed with patient and she is comfortable with discharge home without imaging at this time. She has had previous visits to this emergency department for similar complaint, most recently before tonight was two months ago, at which time she did undergo imaging, specifically CT of her abdomen and pelvis, which did not show any pancreatic inflammation. She has had previous ED visits with CT evidence of pancreatitis though. She says that the Vicodin she took tonmichele was left over from the prescription provided from this emergency department two months ago, and she said she still has four tablets of this left. she did not ask for more medication, but I thought it reasonable to offer a prescription for 10 more tablets of the Vicodin should she need more than the few that she has left over from the previous prescription. Departure - Departure Disposition: 01 Home, Self Care Clinical Impression: Abdominal pain Qualifiers: Abdominal location: upper abdomen, unspecified Qualified Code(s): R10.10 - Upper abdominal pain, unspecified Condition: Good Instructions: ED Abdominal Pain Unkn Cause Follow-Up: Bailey Leahy DO [Primary Care Provider] - Within 1 week Prescriptions: HYDROcod/ACETAM 5/325 [Angier 5/325] 1 - 2 tablet PO Q6H PRN #10 tablet PRN Reason: Pain Ondansetron Odt [Zofran] 4 mg TL Q6H PRN #10 tablet PRN Reason: Nausea / Vomiting Discharge Date/Time: 11/03/20 03:33
[2020-11-03] MEDS ORDERED: SODIUM CHLORIDE 0.9% 1,000 ML IV STA ×2 (00:27→01:16)
[2020-11-03] MEDS ORDERED: ONDANSETRON 4 MG/2 ML VIAL IVP STA (00:27)
[2020-11-03] MEDS ORDERED: HYDROmorphone 1 MG/ML CARPUJECT IVP STA ×2 (00:27→02:53)
[2020-11-03 00:32] LABS: BASOPHILS # (AUTO) 0.1 10^3/uL (0.0-0.1); BASOPHILS % (AUTO) 0.8 %; EOSINOPHILS # (AUTO) 0.2 10^3/uL (0.0-0.7); EOSINOPHILS % (AUTO) 2.1 %; HCT - HEMATOCRIT 47.1 % (37.0-47.0); HGB - HEMOGLOBIN 15.8 g/dL (12.0-16.0); LYMPHOCYTES # (AUTO) 3.9 10^3/uL (1.5-3.5); LYMPHOCYTES % (AUTO) 43.8 %; MEAN CORPUSCULAR HEMOGLOBIN 29.5 pg (27.0-31.0); MEAN CORPUSCULAR HGB CONC 33.5 g/dL (32.0-36.0); MONOCYTES # (AUTO) 0.8 10^3/uL (0.0-1.0); NEUTROPHILS # (AUTO) 3.9 10^3/uL (1.5-6.6); NEUTROPHILS % (AUTO) 44.1 %; PLT - PLATELET COUNT 417 10^3/uL (130-450); RED BLOOD COUNT 5.35 10^6/uL (4.20-5.40); RED CELL DISTRIBUTION WIDTH 12.2 % (12.0-15.0); WHITE BLOOD COUNT 8.9 x10^3/uL (4.8-10.8)
[2020-11-03 00:42] LABS: ALBUMIN 4.4 g/dL (3.2-5.5); BILIRUBIN,TOTAL 0.6 mg/dL (0.2-1.0); CREATININE 0.8 mg/dL (0.4-1.0); POTASSIUM 3.6 mmol/L (3.5-5.0); TOTAL PROTEIN 8.8 g/dL (6.7-8.2)
[2020-11-03] MEDS ORDERED: PROMETHAZINE INJ 25 MG in SODIUM CHLORIDE 0.9% 50 ML IV STA (01:16)
[2020-11-03] MEDS ORDERED: PROMETHAZINE 25 MG/1 ML VIAL ONE (01:19)
[2020-11-03 03:06] VITALS: BP 129/85
--- OUTSIDE RECORDS SUMMARY | 2020-11-07 02:23 | EXTERNAL MEDICAL SUMMARY RPT | Continuity of Care Document ---
:1970 Demographics Phone Unavailable Preferred Language Unknown Marital Status Unknown Evangelical Affiliation Unknown Race Unknown Ethnic Group Unknown Author Organization [facility] Address [address] [id number] Phone Social History date description facility [phone]
== END 2020-11-03 03:33 | disposition home or self-care (01) ==
LOC: ED 23:54
DX: R10.11 Right upper quadrant pain (principal); R10.13 Epigastric pain; R10.12 Left upper quadrant pain; I10 Essential (primary) hypertension; E11.9 Type 2 diabetes mellitus without complications; Z79.4 Long term (current) use of insulin
CPT/HCPCS: 36415; 80053; 83690; 85025; 96365; 96375; 96376; 99284; J1170; J7040

== ENCOUNTER 2020-11-08 16:35 | Emergency (ER) | payer MEDICAID ==
--- OUTSIDE RECORDS SUMMARY | 2020-11-08 16:39 | EXTERNAL MEDICAL SUMMARY RPT | Continuity of Care Document ---
:1970 Demographics Phone Unavailable Preferred Language Unknown Marital Status Unknown Catholic Affiliation Unknown Race Unknown Ethnic Group Unknown Author Organization [facility] Address [address] [place] [address] Phone Social History date description facility [phone]
[2020-11-08 17:04] LABS: BASOPHILS # (AUTO) 0.1 10^3/uL (0.0-0.1); BASOPHILS % (AUTO) 0.7 %; EOSINOPHILS # (AUTO) 0.1 10^3/uL (0.0-0.7); EOSINOPHILS % (AUTO) 1.7 %; HCT - HEMATOCRIT 46.7 % (37.0-47.0); HGB - HEMOGLOBIN 15.5 g/dL (12.0-16.0); LYMPHOCYTES # (AUTO) 3.2 10^3/uL (1.5-3.5); LYMPHOCYTES % (AUTO) 38.8 %; MEAN CORPUSCULAR HEMOGLOBIN 29.5 pg (27.0-31.0); MEAN CORPUSCULAR HGB CONC 33.2 g/dL (32.0-36.0); MEAN CORPUSCULAR VOLUME 88.8 fL (81.0-99.0); MONOCYTES # (AUTO) 0.6 10^3/uL (0.0-1.0); MONOCYTES % (AUTO) 7.4 %; NEUTROPHILS # (AUTO) 4.3 10^3/uL (1.5-6.6); NEUTROPHILS % (AUTO) 51.2 %; PLT - PLATELET COUNT 410 10^3/uL (130-450); RED BLOOD COUNT 5.26 10^6/uL (4.20-5.40); RED CELL DISTRIBUTION WIDTH 12.2 % (12.0-15.0); WHITE BLOOD COUNT 8.4 x10^3/uL (4.8-10.8)
--- OUTSIDE RECORDS SUMMARY | 2020-11-08 17:05 | EXTERNAL MEDICAL SUMMARY RPT | Continuity of Care Document ---
:1970 Demographics Phone Unavailable Preferred Language Unknown Marital Status Unknown Jew Affiliation Unknown Race Unknown Ethnic Group Unknown Author Organization [facility] Address [address] [place] [address] Phone Social History date description facility [phone]
[2020-11-08 17:11] LABS: PT - PROTHROMBIN TIME 11.4 secs (9.9-12.6)
--- NOTE | 2020-11-08 17:13 | ED Physician Documentation ---
History of Present Illness - Stated complaint Stated Complaint: HIGH BP,SLURRED SPEECH - Chief complaint Chief Complaint: Cardiac - Additonal information Additional information: 50-year-old female presents the emergency department for evaluation of elevated blood pressure at home as well as feeling foggy and anxious. She reports that she was resumed on lisinopril about 2 weeks ago for history of high blood pressure. She also has a history of diabetes. Patient denies Reports some mild chest discomfort nonradiating. No nausea. Does have a history of chronic pancreatitis and has some mild abdominal tenderness that is not different from her baseline. She has no slurred speech facial droop arm or leg weakness. Denies any headache at this time. Since starting on the lisinopril she reports that her blood pressures are typically in the 120s to the 140s at home however this morning she noted they were in the 160s to the 180s. Review of Systems Constitutional: denies: Fever, Chills Eyes: denies: Loss of vision, Photophobia Ears: denies: Ear pain Nose: denies: Rhinorrhea / runny nose, Congestion Throat: denies: Dental pain / toothache, Oral lesions / sores Cardiac: reports: Chest pain / pressure. denies: Palpitations, Pedal edema, Calf pain Respiratory: denies: Dyspnea, Cough GI: reports: Abdominal Pain, Nausea. 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, Hysterectomy, Oophrectomy, Breast reduction - Present Medications Home Medications: Ambulatory Orders Medication Instructions Recorded Confirmed HYDROcod/ACETAM 5/325 [[place] 5/325] 1 - 2 tablet PO Q6H PRN #10 tablet 11/03/20 Insulin Glargine [Lantus Solostar] 40 units SQ DAILY 11/03/20 11/03/20 Lisinopril [Zestril] 20 mg PO DAILY 11/03/20 11/03/20 Ondansetron Odt [Zofran] 4 mg TL Q6H PRN #10 tablet 11/03/20 Insulin Aspart [NovoLOG] 10 units TID 11/08/20 11/08/20 - Allergies Allergies/Adverse Reactions: Allergies Allergy/AdvReac Type Severity Reaction Status Date / Time metoclopramide [From Reglan] AdvReac Rash Verified 11/08/20 17:06 - Social History Does the pt smoke?: No Smoking Status: Never smoker Does the pt drink ETOH?: No Does the pt have substance abuse?: No - Immunizations Immunizations are current?: Yes - POLST Patient has POLST: No PD ED PE EXPANDED - General General: Alert, No acute distress - Cardiac Cardiac: Regular Rate, Radial strong equal, Pedal strong equal - Respiratory Respiratory: Clear to ausultation ansley. No: Distress, Labored - Abdomen Abdomen: Normal Bowel sounds, Tender to palpation (exam limited by body habitus) - Derm Derm: Normal color. No: Warm and dry, Rash - Extremities Extremities: Normal. No: Deformity, Tenderness - Neuro Neuro: Alert and Oriented X 3, CNII-XII intact, Normal speech - GCS Eye Opening: Spontaneous Motor: Obeys Commands Verbal: Oriented Total: 15 Results - Vitals Vitals: Vital Signs - 24 hr 11/08/20 11/08/20 11/08/20 16:57 18:06 18:40 Temperature 36.7 C Heart Rate 88 104 H 105 H Respiratory 17 30 H 26 H Rate Blood Pressure 183/100 H 144/100 H 155/97 H O2 Saturation 100 100 100 Oxygen O2 Source Room air - EKG (time done) 1641 Rate: Rate (enter#) (93) Rhythm: NSR [place]: Anterior hemiblock Intervals: Normal MT, Prolonged QT QRS: Normal Ischemia: Non specific changes Compare to prior EKG: Unchanged from prior EKG Computer interpretation: Agree with computer - Labs Labs: Laboratory Tests 11/08/20 11/08/20 11/08/20 16:49 16:49 16:49 WBC 8.4 RBC 5.26 Hgb 15.5 Hct 46.7 MCV 88.8 MCH 29.5 MCHC 33.2 RDW 12.2 Plt Count 410 MPV 9.0 Neut # (Auto) 4.3 Lymph # (Auto) 3.2 [place] # (Auto) 0.6 Eos # (Auto) 0.1 Baso # (Auto) 0.1 Absolute Nucleated RBC 0.00 Nucleated RBC % 0.0 PT INR Sodium 132 L Potassium 3.3 L Chloride 96 L Carbon Dioxide 27 Anion Gap 9.0 BUN 13 Creatinine 0.7 Estimated GFR (MDRD) 89 Glucose 186 H Calcium 9.6 Total Bilirubin 0.4 AST 19 ALT 27 Alkaline Phosphatase 68 Troponin I High Sens Total Protein 8.6 H Albumin 4.4 Globulin 4.2 Albumin/Globulin Ratio 1.0 Lipase 31 HCG, Quant 6.43 Urine Color Urine Clarity Urine pH Ur Specific [place] Urine Protein Urine Glucose (UA) Urine Ketones Urine Occult Blood Urine Nitrite Urine Bilirubin Urine Urobilinogen Ur Leukocyte Esterase Ur Microscopic Review Urine Culture Comments 11/08/20 11/08/20 11/08/20 16:49 16:49 16:50 WBC RBC Hgb Hct MCV MCH MCHC RDW Plt Count MPV Neut # (Auto) Lymph # (Auto) [place] # (Auto) Eos # (Auto) Baso # (Auto) Absolute Nucleated RBC Nucleated RBC % PT 11.4 INR 1.0 Sodium Potassium Chloride Carbon Dioxide Anion Gap BUN Creatinine Estimated GFR (MDRD) Glucose Calcium Total Bilirubin AST ALT Alkaline Phosphatase Troponin I High Sens 2.7 Total Protein Albumin Globulin Albumin/Globulin Ratio Lipase HCG, Quant Urine Color LT. YELLOW Urine Clarity CLEAR Urine pH 6.0 Ur Specific [place] <=1.005 Urine Protein NEGATIVE Urine Glucose (UA) 100 H Urine Ketones NEGATIVE Urine Occult Blood NEGATIVE Urine Nitrite NEGATIVE Urine Bilirubin NEGATIVE Urine Urobilinogen 0.2 (NORMAL) Ur Leukocyte Esterase NEGATIVE Ur Microscopic Review NOT INDICATED Urine Culture Comments NOT INDICATED - Rads (name of study) CXR Radiology: Final report received (No acute cardiopulmonary pathology) PD MEDICAL DECISION MAKING - ED course Complexity details: reviewed results, re-evaluated patient, d/w patient ED course: 50-year-old female presents the emergency department for evaluation of elevated blood pressure. She was recently resumed on lisinopril and is noted that the last few days her blood pressures has been in the 160s and 170s. She did report some mild chest pressure. EKG was nonischemic. High-sensitivity troponin negative. Chest x-ray unremarkable. Renal function is preserved urine shows no signs of infection. Patient is a diabetic. She does not have any focal neuro deficits. No slurred speech vomiting or focal weakness. I discussed with the patient that though she does have an elevated blood pressure here in the emergency department I do not feel that it would be appropriate for us to make additional changes to her regimen as she has been sensitive to blood pressure medications in the past. I have encouraged her to follow-up with her primary care provider for reevaluation in 1 to 2 weeks. She is advised to take her blood pressure at the same time every day at home. We also discussed that the control of blood pressure and diabetes is more a marathon than the strips printed and avoiding wide swings in sugars and blood pressures is very important. Overall patient appears well and will be discharged home. Emergent return precautions were discussed. Departure - Departure Disposition: Home, Self Care Clinical Impression: Hypertension Qualifiers: Hypertension type: essential hypertension Qualified Code(s): I10 - Essential (primary) hypertension Condition: Stable Record reviewed to determine appropriate education?: Yes Comments: Crystal you were seen in the emergency department today for concerns of your blood pressure was elevated. And it certainly is but not in a scary way. As we discussed control of blood pressure and diabetes is a marathon not a sprint. We would like to get slow gradual control of the blood pressure rather than make you have big swings in the pressures. I want you to continue taking the lisinopril as already scheduled. Please follow-up with your primary care provider in 1 to 2 weeks. Please take your blood pressure at the same time every day in the same position. Bring these results with you to your follow-up appointment your primary doctor may want to make additional changes. Your screening labs today were without any worrisome abnormalities. You are not having a heart attack or a stroke. Please return to the emergency department if you develop sudden weakness in your arm or leg, have a droopy face, sudden severe chest pain, abdominal pain or uncontrolled vomiting.
[2020-11-08 17:16] LABS: ALBUMIN 4.4 g/dL (3.2-5.5); BILIRUBIN,TOTAL 0.4 mg/dL (0.2-1.0); CALCIUM 9.6 mg/dL (8.5-10.3); CREATININE 0.7 mg/dL (0.4-1.0); POTASSIUM 3.3 mmol/L (3.5-5.0); TOTAL PROTEIN 8.6 g/dL (6.7-8.2)
[2020-11-08 17:28] LABS: BILIRUBIN,URINE NEGATIVE (NEGATIVE); GLUCOSE, URINE (UA) 100 mg/dL (NEGATIVE); KETONES,URINE (UA) NEGATIVE (NEGATIVE); LEUKOCYTE ESTERASE, URINE NEGATIVE (NEGATIVE); NITRITE,URINE NEGATIVE (NEGATIVE); OCCULT BLOOD,URINE NEGATIVE (NEGATIVE); PROTEIN,URINE NEGATIVE (NEGATIVE); UROBILINOGEN,URINE 0.2 (NORMAL) E.U./dL (NORMAL)
--- NOTE | 2020-11-08 17:29 | XRAY Report ---
PROCEDURE: Chest 1 View X-Ray INDICATIONS: chest pain TECHNIQUE: One view of the chest was acquired. COMPARISON: 06/09/2019 FINDINGS: Surgical changes and devices: None. Lungs and pleura: No pleural effusions or pneumothorax. Lungs are clear. Mediastinum: Mediastinal contours appear normal. Heart size is normal. Bones and chest wall: No suspicious bony lesions. Overlying soft tissues appear unremarkable. IMPRESSION: No acute cardiopulmonary pathology. Reviewed by: Hemal Woods MD on 11/08/2020 5:28 PM PDT Approved by: Hemal Woods MD on 11/08/2020 5:28 PM PDT Station ID: [id number]
[2020-11-08 17:35] LABS: CLARITY,URINE CLEAR (CLEAR)
[2020-11-08 18:40] VITALS: BP 155/97
== END 2020-11-08 18:53 | disposition home or self-care (01) ==
LOC: ED 16:35
DX: I10 Essential (primary) hypertension (principal); E11.9 Type 2 diabetes mellitus without complications; Z79.4 Long term (current) use of insulin; I44.4 Left anterior fascicular block
CPT/HCPCS: 36415; 80053; 81001; 81003; 83690; 84484; 84702; 85025; 85610; 87086; 93005; 99284

== ENCOUNTER 2020-11-29 15:59 | Emergency (ER) | payer MEDICAID ==
--- OUTSIDE RECORDS SUMMARY | 2020-11-29 16:02 | EXTERNAL MEDICAL SUMMARY RPT | Continuity of Care Document ---
:1970 Demographics Phone Unavailable Preferred Language Unknown Marital Status Unknown Gnosticist Affiliation Unknown Race Unknown Ethnic Group Unknown Author Organization [facility] Address [address] [place] [address] Phone Social History date description facility [phone]
--- OUTSIDE RECORDS SUMMARY | 2020-11-29 16:05 | EXTERNAL MEDICAL SUMMARY RPT | Continuity of Care Document ---
:1970 Demographics Phone Unavailable Preferred Language Unknown Marital Status Unknown Denominational Affiliation Unknown Race Unknown Ethnic Group Unknown Author Organization [facility] Address [address] [place] [address] Phone Social History date description facility [phone]
--- NOTE | 2020-11-29 16:23 | XRAY Report ---
PROCEDURE: Chest 1 View X-Ray INDICATIONS: Chest pain TECHNIQUE: One view of the chest was acquired. COMPARISON: 06/09/2019 FINDINGS: Surgical changes and devices: None. Lungs and pleura: No pleural effusions or pneumothorax. Lungs are clear. Mediastinum: Mediastinal contours appear normal. Heart size is normal. Bones and chest wall: No suspicious bony lesions. Overlying soft tissues appear unremarkable. IMPRESSION: Chest without acute cardiopulmonary abnormalities or focal airspace disease. Reviewed by: Xiang Carvalho MD on 11/29/2020 4:21 PM PDT Approved by: Xiang Carvalho MD on 11/29/2020 4:21 PM PDT Station ID: [id number]
[2020-11-29 16:31] LABS: BASOPHILS # (AUTO) 0.1 10^3/uL (0.0-0.1); BASOPHILS % (AUTO) 0.9 %; EOSINOPHILS # (AUTO) 0.2 10^3/uL (0.0-0.7); EOSINOPHILS % (AUTO) 1.8 %; HGB - HEMOGLOBIN 15.1 g/dL (12.0-16.0); LYMPHOCYTES # (AUTO) 3.3 10^3/uL (1.5-3.5); LYMPHOCYTES % (AUTO) 37.3 %; MEAN CORPUSCULAR HGB CONC 34.3 g/dL (32.0-36.0); MEAN CORPUSCULAR VOLUME 87.3 fL (81.0-99.0); MONOCYTES # (AUTO) 0.7 10^3/uL (0.0-1.0); MONOCYTES % (AUTO) 7.4 %; NEUTROPHILS # (AUTO) 4.7 10^3/uL (1.5-6.6); NEUTROPHILS % (AUTO) 52.3 %; PLT - PLATELET COUNT 392 10^3/uL (130-450); RED BLOOD COUNT 5.04 10^6/uL (4.20-5.40); RED CELL DISTRIBUTION WIDTH 12.3 % (12.0-15.0); WHITE BLOOD COUNT 8.9 x10^3/uL (4.8-10.8)
--- NOTE | 2020-11-29 16:44 | ED Physician Documentation ---
PD HPI CHEST PAIN - Stated complaint Stated Complaint: CP-SENT BY PCP - Chief complaint Chief Complaint: Cardiac - History obtained from History obtained from: Patient - History of Present Illness Timing - onset: How many weeks ago (1) Timing - onset during: Rest Timing - duration: Weeks (1) Timing - details: Gradual onset, Waxing and waning (initially undulating, but has been more consistent the past several days. Has had fast heart rate noted in the past. Was tachycardic on recent ER visits (11/08/20 most recent).) Quality: Pressure, Aching. No: Tearing Location: Substernal Radiation: Neck, Left upper extremity (shoulder aching) Improved by: No: Rest Worsened by: Palpation, Position (feels worse lying down). No: Exertion, Inspiration Associated symptoms: Nausea, General Weakness. No: Shortness of air, Feeling faint / dizzy, Palpitations Similar symptoms before: No diagnosis Recently seen: Clinic (today and had ECG that was read abnormal and referred to ER. Her ECG does have delayed R wave progression, but is similar to prior ones (as recent as 11/08/20 and prior).), Emergency Dept (3 weeks ago for HTN, abd pain ) Review of Systems Constitutional: denies: Fever, Chills Nose: denies: Rhinorrhea / runny nose, Congestion Throat: denies: Sore throat Cardiac: reports: Chest pain / pressure (pressure feeling). denies: Palpitations, Pedal edema, Calf pain Respiratory: reports: Dyspnea. denies: Cough, Wheezing GI: reports: Nausea. denies: Abdominal Pain, Vomiting, Diarrhea Skin: denies: Rash, Lesions Musculoskeletal: denies: Extremity swelling Neurologic: denies: Near syncope PD PAST MEDICAL HISTORY - Past Medical History Cardiovascular: Hypertension Respiratory: None Neuro: None Endocrine/Autoimmune: Type 2 diabetes GI: Pancreatitis, Cholelithiasis Psych: Depression, Anxiety - Past Surgical History Past Surgical History: Yes General: Cholecystectomy Ortho: Knee replacement /CENTRAL PROCESSING TECH: Tubal ligation, Hysterectomy, Oophrectomy, Breast reduction - Present Medications Home Medications: Ambulatory Orders Medication Instructions Recorded Confirmed HYDROcod/ACETAM 5/325 [[place] 5/325] 1 - 2 tablet PO Q6H PRN #10 tablet 11/03/20 Insulin Glargine [Lantus Solostar] 40 units SQ DAILY 11/03/20 11/03/20 Lisinopril [Zestril] 20 mg PO DAILY 11/03/20 11/03/20 Ondansetron Odt [Zofran] 4 mg TL Q6H PRN #10 tablet 11/03/20 Insulin Aspart [NovoLOG] 10 units TID 11/08/20 11/08/20 HYDROcod/ACETAM 5/325 [[place] 5/325] 1 ea PO Q6H PRN #12 tablet 11/29/20 Metoprolol Succinate [Toprol Xl] 25 mg PO DAILY #30 tablet 11/29/20 Naproxen Sodium [Anaprox Ds] 550 mg PO BID 7 Days #14 tablet 11/29/20 Ondansetron Odt [Zofran] 4 mg TL Q6H PRN #10 tablet 11/29/20 - Allergies Allergies/Adverse Reactions: Allergies Allergy/AdvReac Type Severity Reaction Status Date / Time metoclopramide [From Reglan] AdvReac Rash Verified 11/29/20 16:02 - Social History Does the pt smoke?: No Smoking Status: Never smoker Does the pt drink ETOH?: No Does the pt have substance abuse?: No - Immunizations Immunizations are current?: Yes - POLST Patient has POLST: No PD ED PE NORMAL - Vitals Vital signs reviewed: Yes - General General: Alert and oriented X 3, No acute distress, Well developed/nourished - HEENT HEENT: Moist mucous membranes, Pharynx benign - Neck Neck: Supple, no meningeal sign, No adenopathy - Cardiac Cardiac: No: RRR (tachycardic but regular, from 100-115) - Respiratory Respiratory: Clear bilaterally - Abdomen Abdomen: Soft, Non tender - Derm Derm: Normal color, Warm and dry - Extremities Extremities: Normal ROM s pain, No edema, No calf tenderness / cord - Neuro Neuro: Alert and oriented X 3, No motor deficit, Normal speech Results - Vitals Vitals: Vital Signs - 24 hr 11/29/20 11/29/20 11/29/20 16:02 17:30 17:48 Temperature 36.5 C Heart Rate 114 H 102 H 102 H Respiratory 16 20 18 Rate Blood Pressure 145/97 H 131/105 H 140/81 H O2 Saturation 98 99 100 11/29/20 11/29/20 11/29/20 18:04 18:07 18:10 Temperature Heart Rate 143 H 98 81 Respiratory Rate Blood Pressure 146/105 H 124/89 H 125/101 H O2 Saturation 11/29/20 11/29/20 11/29/20 18:15 18:19 18:45 Temperature Heart Rate 83 82 85 Respiratory 18 Rate Blood Pressure 121/86 H 117/87 H 126/89 H O2 Saturation 99 11/29/20 19:19 Temperature Heart Rate 104 H Respiratory 18 Rate Blood Pressure 122/61 O2 Saturation 100 Oxygen O2 Source Room air - EKG (time done) 16:04 Rate: Rate (enter#) (114) Rhythm: Sinus tachycardia [place]: Normal Intervals: Normal [place] QRS: Normal, Poor R wave progression Ischemia: Normal ST segments. No: ST elevation c/w ischemia, ST depression - Labs Labs: Laboratory Tests 11/29/20 11/29/20 11/29/20 16:25 16:25 16:25 WBC 8.9 RBC 5.04 Hgb 15.1 Hct 44.0 MCV 87.3 MCH 30.0 MCHC 34.3 RDW 12.3 Plt Count 392 MPV 9.0 Neut # (Auto) 4.7 Lymph # (Auto) 3.3 [place] # (Auto) 0.7 Eos # (Auto) 0.2 Baso # (Auto) 0.1 Absolute Nucleated RBC 0.00 Nucleated RBC % 0.0 Sodium 137 Potassium 3.8 Chloride 99 L Carbon Dioxide 26 Anion Gap 12.0 BUN 17 Creatinine 0.8 Estimated GFR (MDRD) 76 L Glucose 229 H Calcium 9.8 Total Bilirubin 0.7 AST 17 ALT 24 Alkaline Phosphatase 63 Troponin I High Sens 2.5 C-Reactive Protein Total Protein 8.7 H Albumin 4.5 Globulin 4.2 Albumin/Globulin Ratio 1.1 Lipase 35 11/29/20 17:22 WBC RBC Hgb Hct MCV MCH MCHC RDW Plt Count MPV Neut # (Auto) Lymph # (Auto) [place] # (Auto) Eos # (Auto) Baso # (Auto) Absolute Nucleated RBC Nucleated RBC % Sodium Potassium Chloride Carbon Dioxide Anion Gap BUN Creatinine Estimated GFR (MDRD) Glucose Calcium Total Bilirubin AST ALT Alkaline Phosphatase Troponin I High Sens C-Reactive Protein < 1.0 Total Protein Albumin Globulin Albumin/Globulin Ratio Lipase - Rads (name of study) chest xray Radiology: Prelim report reviewed (no acute process), See rad report PD MEDICAL DECISION MAKING - ED course Complexity details: reviewed results (ECg showing no ischemic changes, but tachycardic. Bedside U/S did not show any obvious pericardial effusion. No change with GI cocktail. I think she had chestwall inflammation or possible pericarditis.), considered differential (has had nonexertional CP/pressure, nonpleuritic, but is some positional, without dyspnea. No leg swelling. PERC score of 1, so low prob. ), d/w patient Departure - Departure Disposition: 01 Home, Self Care Clinical Impression: Tachycardia, Elevated blood pressure reading Chest pain Qualifiers: Chest pain type: precordial pain Qualified Code(s): R07.2 - Precordial pain Condition: Stable Record reviewed to determine appropriate education?: Yes Instructions: ED Chest Pain Atypical Unkn Cause Follow-Up: Bailey Leahy DO [Primary Care Provider] - Prescriptions: Naproxen Sodium [Anaprox Ds] 550 mg PO BID 7 Days #14 tablet HYDROcod/ACETAM 5/325 [[place] 5/325] 1 ea PO Q6H PRN #12 tablet PRN Reason: Pain Metoprolol Succinate [Toprol Xl] 25 mg PO DAILY #30 tablet Ondansetron Odt [Zofran] 4 mg TL Q6H PRN #10 tablet PRN Reason: Nausea / Vomiting Comments: No signs of heart attack/ heart failure, pneumonia on tests right now. No improvement with stomach meds. I think this may be some inflammation of the chest wall or around the heart (pericarditis or pleurisy). Naproxen anti- inflammatory twice daily with food. Use ondansetron if needed for nausea. To that add Tylenol or hydrocodone if needed for pain. To help with the faster heart rate as well as your blood pressure, I would add metoprolol low-dose 25 mg daily. However we do not your blood pressure to be to o low so decrease your lisinopril to half (take 10 mg half tablet rather than the 20 mg whole tablet daily). Follow-up with your primary care early next week, call tomorrow for an appointment. See how well you do over the next several days. Return if worsening or persistent symptoms. Discharge Date/Time: 11/29/20 19:30
[2020-11-29 16:55] LABS: ALBUMIN 4.5 g/dL (3.2-5.5); ALBUMIN/GLOBULIN RATIO 1.1 (1.0-2.2); BILIRUBIN,TOTAL 0.7 mg/dL (0.2-1.0); CALCIUM 9.8 mg/dL (8.5-10.3); CREATININE 0.8 mg/dL (0.4-1.0); POTASSIUM 3.8 mmol/L (3.5-5.0); TOTAL PROTEIN 8.7 g/dL (6.7-8.2)
[2020-11-29] MEDS ORDERED: MAG HYDROX/AL HYDROX/SIMETH 30 ML UDC PO STA (17:21)
[2020-11-29] MEDS ORDERED: KETOROLAC 15 MG/ML VIAL IVP STA (17:21)
[2020-11-29] MEDS ORDERED: MORPHINE 2 MG/ML CARPUJECT IVP STA (17:21)
[2020-11-29] MEDS ORDERED: METOPROLOL 5 MG/5 ML VIAL IVP STA (17:21)
[2020-11-29] MEDS ORDERED: LIDOCAINE VISCOUS 2% 15 ML UDC MM STA (17:21)
[2020-11-29] MEDS ORDERED: diphenhydrAMINE INJ 50 MG/ML VIAL IVP STA (18:42)
[2020-11-29 19:19] VITALS: BP 122/61
== END 2020-11-29 19:30 | disposition home or self-care (01) ==
LOC: ED 15:59
DX: R07.2 Precordial pain (principal); R00.0 Tachycardia, unspecified; I10 Essential (primary) hypertension; E11.9 Type 2 diabetes mellitus without complications; Z79.4 Long term (current) use of insulin
CPT/HCPCS: 36415; 71045; 80053; 83690; 84484; 85025; 86140; 93005; 96374; 96375; 99284; 99285; A9270; J1200

== ENCOUNTER 2020-12-09 15:28 | Emergency (ER) | payer MEDICAID ==
[2020-12-09 15:51] LABS: BASOPHILS # (AUTO) 0.1 10^3/uL (0.0-0.1); BASOPHILS % (AUTO) 0.9 %; EOSINOPHILS # (AUTO) 0.2 10^3/uL (0.0-0.7); EOSINOPHILS % (AUTO) 2.8 %; HCT - HEMATOCRIT 45.6 % (37.0-47.0); HGB - HEMOGLOBIN 15.4 g/dL (12.0-16.0); LYMPHOCYTES # (AUTO) 3.4 10^3/uL (1.5-3.5); LYMPHOCYTES % (AUTO) 38.6 %; MEAN CORPUSCULAR HEMOGLOBIN 29.6 pg (27.0-31.0); MEAN CORPUSCULAR HGB CONC 33.8 g/dL (32.0-36.0); MEAN CORPUSCULAR VOLUME 87.5 fL (81.0-99.0); MONOCYTES # (AUTO) 0.7 10^3/uL (0.0-1.0); MONOCYTES % (AUTO) 7.7 %; NEUTROPHILS # (AUTO) 4.3 10^3/uL (1.5-6.6); NEUTROPHILS % (AUTO) 49.7 %; PLT - PLATELET COUNT 392 10^3/uL (130-450); RED BLOOD COUNT 5.21 10^6/uL (4.20-5.40); RED CELL DISTRIBUTION WIDTH 12.4 % (12.0-15.0); WHITE BLOOD COUNT 8.7 x10^3/uL (4.8-10.8)
[2020-12-09 16:07] LABS: ALBUMIN 4.4 g/dL (3.2-5.5); BILIRUBIN,TOTAL 0.7 mg/dL (0.2-1.0); CALCIUM 9.7 mg/dL (8.5-10.3); CREATININE 0.9 mg/dL (0.4-1.0); POTASSIUM 3.6 mmol/L (3.5-5.0); TOTAL PROTEIN 8.9 g/dL (6.7-8.2)
--- NOTE | 2020-12-09 16:37 | XRAY Report ---
PROCEDURE: Chest 1 View X-Ray INDICATIONS: Chest pain TECHNIQUE: One view of the chest was acquired. COMPARISON: 11/29/2020, 11/18/2020, 06/09/2019 FINDINGS: Surgical changes and devices: None. Lungs and pleura: An incomplete inspiratory result is noted, with low lung volumes and crowding of t he vascular markings. No focal infiltrates are seen. No large pneumothorax or large pleural effusion can be seen. Mediastinum: Mediastinal contours appear normal. Heart size is normal. Bones and chest wall: No suspicious bony lesions. Overlying soft tissues appear unremarkable. IMPRESSION: Limited portable chest examination, without an acute abnormality identified. Reviewed by: Casey Juarez MD on 12/09/2020 3:36 PM AKHECTOR Approved by: Casey Juarez MD on 12/09/2020 3:36 PM AKHECTOR Station ID: [id number]
[2020-12-09] MEDS ORDERED: LORazepam 1 MG TABLET PO STA (16:41)
[2020-12-09] MEDS ORDERED: ONDANSETRON 4 MG/2 ML VIAL IVP STA (16:41)
[2020-12-09] MEDS ORDERED: IOPAMIDOL-300 100 ML VIAL ONE (16:46)
[2020-12-09] MEDS ORDERED: IOPAMIDOL-300 100 ML VIAL IVP ONE (17:17)
--- NOTE | 2020-12-09 17:42 | CT Report ---
PROCEDURE: ANGIO CHEST W/WO INDICATIONS: tachycardia, shortness of breath, chest pain. CONTRAST: IV CONTRAST: Isovue 300 ml: 80 PO CONTRAST: *NO PO CONTRAST TECHNIQUE: After the administration of intravenous contrast, 2 mm thick sections acquired from the pulmonary api johann to the posterior costophrenic angles. 3-dimensional maximum intensity projection (MIP) coronal a nd sagittal reformats were then acquired through the thorax. For radiation dose reduction, the follow ing was used: automated exposure control, adjustment of mA and/or kV according to patient size. COMPARISON: Correlation is made with overlapping portions of the abdomen and pelvis CT, 09/27/2020. FINDINGS: Image quality: Excellent. Pulmonary arteries: Pulmonary arteries are normal in size, and demonstrate no intraluminal filling d efects to suggest central pulmonary embolism. Lungs and pleura: Lungs are clear. No pleural effusions or pneumothorax. Central and peripheral ai rways are patent. Mediastinum: Heart size is normal, without pericardial effusion. No mediastinal or hilar adenopathy . Thoracic aorta is normal in caliber and enhancement. Esophagus is normal in caliber, without hiat al hernia. Bones and chest wall: No suspicious bony lesions. Ribs and thoracic spine appear intact throughout. Age-appropriate degenerative changes are seen. The thyroid is normal. No axillary or supraclavicu lar adenopathy. Abdomen: Cholecystectomy clips are seen. Visualized upper abdominal solid organs appear normal in the early arterial phase of enhancement. IMPRESSION: Negative for pulmonary embolism. Incidental note is made of: Cholecystectomy Reviewed by: Casey Juarez MD on 12/09/2020 4:40 PM AKDT Approved by: Casey Juarez MD on 12/09/2020 4:40 PM AKDT Station ID: [id number]
[2020-12-09 17:51] VITALS: BP 146/90
[2020-12-09] MEDS ORDERED: ACETAMINOPHEN 325 MG TABLET PO STA (17:51)
--- NOTE | 2020-12-09 17:57 | ED Physician Documentation ---
History of Present Illness - Stated complaint Stated Complaint: CHEST PAIN, L SIDE NUMB - Chief complaint Chief Complaint: Cardiac - History obtained from History obtained from: Patient - Additonal information Additional information: 50yF with pmh dm, htn p/w sudden onset chest heaviness around 11am a/w nausea, dizziness, anxiety, shortness of breath and perioral tingling raidating down both arms to fingertips, improving gradually over a few hours. She now states her symptoms are mild in the emergency department, but she is concerned about these symptoms. denies fevers, leg swelling, cough, vomiting, back pain. She did not take her BP meds today. Review of Systems Ten Systems: 10 systems reviewed and negative Constitutional: denies: Fever Eyes: denies: Loss of vision Ears: denies: Tinnitus/ringing Cardiac: reports: Chest pain / pressure, Palpitations Respiratory: reports: Dyspnea. denies: Cough GI: reports: Nausea. 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 : None HEENT: Chronic vision loss Psych: Depression, Anxiety Musculoskeletal: None - Past Surgical History Past Surgical History: Yes General: Cholecystectomy Ortho: Knee replacement /DOOR REPAIRMAN: Tubal ligation, Hysterectomy, Oophrectomy, Breast reduction - Present Medications Home Medications: Ambulatory Orders Medication Instructions Recorded Confirmed Insulin Glargine [Lantus Solostar] 40 units SQ DAILY 11/03/20 12/09/20 Lisinopril [Zestril] 10 mg PO DAILY 11/03/20 12/09/20 Insulin Aspart [NovoLOG] 10 units SQ TID 11/08/20 12/09/20 HYDROcod/ACETAM 5/325 [[place] 5/325] 1 ea PO Q6H PRN #12 tablet 11/29/20 12/09/20 Metoprolol Succinate [Toprol Xl] 25 mg PO DAILY #30 tablet 11/29/20 12/09/20 Ondansetron Odt [Zofran] 4 mg TL Q6H PRN #10 tablet 11/29/20 12/09/20 - Allergies Allergies/Adverse Reactions: Allergies Allergy/AdvReac Type Severity Reaction Status Date / Time metoclopramide [From Reglan] AdvReac Rash Verified 12/09/20 15:32 - Social History Does the pt smoke?: No Smoking Status: Never smoker Does the pt drink ETOH?: No Does the pt have substance abuse?: No - Immunizations Immunizations are current?: Yes - POLST Patient has POLST: No PD ED PE NORMAL - Vitals Vital signs reviewed: Yes - General General: Alert and oriented X 3, No acute distress, Well developed/nourished - HEENT HEENT: Atraumatic, PERRL, EOMI - Neck Neck: Supple, no meningeal sign - Cardiac Cardiac: RRR - Respiratory Respiratory: No respiratory distress, Clear bilaterally - Abdomen Abdomen: Non tender, Non distended - Derm Derm: Normal color, Warm and dry - Extremities Extremities: No deformity - Neuro Neuro: Alert and oriented X 3, hall director 2-12 intact, No motor deficit, No sensory deficit, Normal speech - Psych Psych: Other (anxious mood and affect) Results - Vitals Vitals: Oxygen O2 Source Room air - Labs Labs: Laboratory Tests 12/09/20 12/09/20 12/09/20 15:47 15:47 15:47 WBC 8.7 RBC 5.21 Hgb 15.4 Hct 45.6 MCV 87.5 MCH 29.6 MCHC 33.8 RDW 12.4 Plt Count 392 MPV 9.0 Neut # (Auto) 4.3 Lymph # (Auto) 3.4 [place] # (Auto) 0.7 Eos # (Auto) 0.2 Baso # (Auto) 0.1 Absolute Nucleated RBC 0.00 Nucleated RBC % 0.0 Sodium 135 Potassium 3.6 Chloride 94 L Carbon Dioxide 29 Anion Gap 12.0 BUN 16 Creatinine 0.9 Estimated GFR (MDRD) 67 L Glucose 208 H Calcium 9.7 Total Bilirubin 0.7 AST 18 ALT 26 Alkaline Phosphatase 68 Troponin I High Sens 2.8 Total Protein 8.9 H Albumin 4.4 Globulin 4.5 H Albumin/Globulin Ratio 1.0 Lipase 32 PD MEDICAL DECISION MAKING - ED course ED course: 50yF presented with atypical chest pain, headache, dizziness, nausea, shortness of breath, sensation of anxiety in the ED. She had no focal neuro deficits on exam, had unremarkable workup in the ED. HEART score 2 (age, risk factors). Strict return precautions given. Patient will f./u with her pmd. Departure - Departure Disposition: 01 Home, Self Care Clinical Impression: Headache, Anxiety, Chest pain, Shortness of breath Condition: Good Instructions: ED Chest Pain Atypical Unkn Cause Comments: You are seen in the emergency department for chest pain, without any acute findings on your EKG, lab work, and CT of the chest. Please follow-up with your primary doctor this week. Return to the emergency department for expands any new or worsening symptoms or have other concerns. Discharge Date/Time: 12/09/20 18:08
== END 2020-12-09 18:08 | disposition home or self-care (01) ==
LOC: ED 15:28
DX: R07.89 Other chest pain (principal); R51.9 Headache, unspecified; R42 Dizziness and giddiness; R11.0 Nausea; R06.02 Shortness of breath; F41.9 Anxiety disorder, unspecified
CPT/HCPCS: 36415; 71045; 71275; 80053; 83690; 84484; 85025; 93005; 96374; 99284; A9270; J8499; Q9967

== ENCOUNTER 2021-01-11 08:58 | Outpatient (CLI) | payer MEDICAID | END 2021-01-11 08:59 | disposition home or self-care (01) | LOC: DI 08:58 | PROVIDERS: ATTEND Family Medicine | DX: R06.02 Shortness of breath (principal) | CPT/HCPCS: 93306 ==

== ENCOUNTER 2021-02-09 17:50 | Emergency (ER) | payer MEDICAID ==
[2021-02-09] MEDS ORDERED: KETOROLAC 15 MG/ML VIAL IVP STA (18:28)
[2021-02-09] MEDS ORDERED: HALOPERIDOL 5 MG/ML VIAL IVP ONE (18:28)
--- NOTE | 2021-02-09 18:29 | ED Physician Documentation ---
PD HPI HEADACHE - Stated complaint Stated Complaint: STARKEY - Chief complaint Chief Complaint: Neuro - History obtained from History obtained from: Patient - Additional information Additional information: 50-year-old woman with recent cataract repair developed some eye pressure today, the eye pressure went away but was followed by a headache. It is typical of her migraines although she has not had a migraine in a long time. It is throbbing, associated nausea and light sensitivity. Her vision is fine. She is nauseous. No neck stiffness or fevers. 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 : None HEENT: Chronic vision loss Psych: Depression, Anxiety Musculoskeletal: None - Past Surgical History Past Surgical History: Yes General: Cholecystectomy Ortho: Knee replacement /STOCK CONTROL CLERK: Tubal ligation, Hysterectomy, Oophrectomy, Breast reduction - Present Medications Home Medications: Ambulatory Orders Medication Instructions Recorded Confirmed Insulin Glargine [Lantus Solostar] 40 units SQ DAILY 11/03/20 02/09/21 Lisinopril [Zestril] 10 mg PO DAILY 11/03/20 02/09/21 Insulin Aspart [NovoLOG] 15 units SQ TID 11/08/20 02/09/21 Metoprolol Succinate [Toprol Xl] 25 mg PO DAILY #30 tablet 11/29/20 02/09/21 Ondansetron Odt [Zofran] 4 mg TL Q6H PRN #10 tablet 11/29/20 02/09/21 Bromfenac Sodium [Prolensa] 1 drops LEFTEYE DAILY 02/09/21 02/09/21 Ofloxacin 0.3% Ophth Drops 1 drops RIGHTEYE QID 02/09/21 02/09/21 [Ocuflox 0.3% Ophth Drops] prednisoLONE 1% OPHTH DROPS [Pred 1 drops RIGHTEYE QID 02/09/21 02/09/21 Forte 1% Ophth Drops] - Allergies Allergies/Adverse Reactions: Allergies Allergy/AdvReac Type Severity Reaction Status Date / Time metoclopramide [From Reglan] AdvReac Rash Verified 02/09/21 17:57 - Social History Does the pt smoke?: No Smoking Status: Never smoker Does the pt drink ETOH?: No Does the pt have substance abuse?: No - Immunizations Immunizations are current?: Yes - POLST Patient has POLST: No PD ED PE NORMAL - Vitals Vital signs reviewed: Yes - General General: Alert and oriented X 3, No acute distress - HEENT HEENT: PERRL, EOMI, Other (Right globe is soft, pupil reactive, not fixed,) - Neck Neck: Supple, no meningeal sign, No bony TTP - Neuro Neuro: Alert and oriented X 3, Normal speech Results - Vitals Vitals: Vital Signs - 24 hr 02/09/21 17:53 Temperature 36.5 C Heart Rate 99 Respiratory 20 Rate Blood Pressure 145/92 H O2 Saturation 99 Oxygen O2 Source Room air PD MEDICAL DECISION MAKING - ED course ED course: The headache is gradual in onset and similar to prior headaches. As such I doubt subarachnoid hemorrhage. There are no infectious symptoms such as fever or stiff neck to make me suspect meningitis. No carbon monoxide exposure by history. After the administration of IV fluids, Haldol, and Toradol she was feeling much better and her headache level was acceptable. Departure - Departure Disposition: 01 Home, Self Care Clinical Impression: Migraine Qualifiers: Migraine type: with aura Status migrainosus presence: with status migrainosus Intractability: not intractable Qualified Code(s): G43.101 - Migraine with aura, not intractable, with status migrainosus Condition: Good Record reviewed to determine appropriate education?: Yes Instructions: ED Headache Migraine Comments: Call your doctor to arrange a follow-up appointment, make the next available appointment. In the interim, return anytime if worse or if new symptoms develop.
[2021-02-09 19:20] VITALS: BP 101/75
== END 2021-02-09 19:21 | disposition home or self-care (01) ==
LOC: ED 17:50
DX: G43.101 Migraine with aura, not intractable, with status migrainosus (principal); I10 Essential (primary) hypertension; E11.9 Type 2 diabetes mellitus without complications; Z79.4 Long term (current) use of insulin
CPT/HCPCS: 96374; 96375; 99283

== ENCOUNTER 2021-02-09 22:07 | Emergency (ER) | payer MEDICAID ==
[2021-02-09] MEDS ORDERED: diphenhydrAMINE INJ 50 MG/ML VIAL IM STA (23:04)
--- NOTE | 2021-02-09 23:18 | ED Physician Documentation ---
History of Present Illness - Stated complaint Stated Complaint: MED REACTION - Chief complaint Chief Complaint: Allergic Rx - History obtained from History obtained from: Patient, Family - History of Present Illness Timing: Today - Additonal information Additional information: 50-year-old female with type 2 diabetes and chronic pancreatitis developed a migraine-like headache today was seen in the emergency department she was administered Toradol and Haldol and had improvement in her headache. When she got home she began to feel quite odd and felt panicky enough that her brought her back to the emergency department for a medication reaction. She does not remember having Haldol. Review of Systems Constitutional: denies: Fever Eyes: denies: Decreased vision Ears: denies: Ear pain Nose: denies: Congestion Throat: denies: Sore throat Cardiac: denies: Chest pain / pressure Respiratory: denies: Dyspnea, Cough GI: reports: Nausea, Vomiting : denies: Dysuria Neurologic: reports: Headache. 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 : None HEENT: Chronic vision loss Psych: Depression, Anxiety Musculoskeletal: None - Past Surgical History Past Surgical History: Yes General: Cholecystectomy Ortho: Knee replacement /ELECTRON MICROPROBE OPERATOR: Tubal ligation, Hysterectomy, Oophrectomy, Breast reduction - Present Medications Home Medications: Ambulatory Orders Medication Instructions Recorded Confirmed Insulin Glargine [Lantus Solostar] 40 units SQ DAILY 11/03/20 02/09/21 Lisinopril [Zestril] 10 mg PO DAILY 11/03/20 02/09/21 Insulin Aspart [NovoLOG] 15 units SQ TID 11/08/20 02/09/21 Metoprolol Succinate [Toprol Xl] 25 mg PO DAILY #30 tablet 11/29/20 02/09/21 Ondansetron Odt [Zofran] 4 mg TL Q6H PRN #10 tablet 11/29/20 02/09/21 Bromfenac Sodium [Prolensa] 1 drops LEFTEYE DAILY 02/09/21 02/09/21 Ofloxacin 0.3% Ophth Drops 1 drops RIGHTEYE QID 02/09/21 02/09/21 [Ocuflox 0.3% Ophth Drops] prednisoLONE 1% OPHTH DROPS [Pred 1 drops RIGHTEYE QID 02/09/21 02/09/21 Forte 1% Ophth Drops] - Allergies Allergies/Adverse Reactions: Allergies Allergy/AdvReac Type Severity Reaction Status Date / Time metoclopramide [From Reglan] AdvReac Rash Verified 02/09/21 22:10 - Social History Does the pt smoke?: No Smoking Status: Never smoker Does the pt drink ETOH?: No Does the pt have substance abuse?: No - Immunizations Immunizations are current?: Yes - POLST Patient has POLST: No PD ED PE NORMAL - Vitals Vital signs reviewed: Yes (Hypertensive) - General General: Alert and oriented X 3, No acute distress, Well developed/nourished, Other (50-year-old female appears in better health last time I have seen her years ago.) - HEENT HEENT: Atraumatic, PERRL, EOMI - Neck Neck: Supple, no meningeal sign, No bony TTP - Cardiac Cardiac: RRR, No murmur - Respiratory Respiratory: No respiratory distress, Clear bilaterally - Abdomen Abdomen: Normal bowel sounds, Soft, Non tender, Non distended - Back Back: No CVA TTP, No spinal TTP - Derm Derm: Normal color, Warm and dry, No rash - Extremities Extremities: No deformity - Neuro Neuro: Alert and oriented X 3, mission support specialist 2-12 intact, No motor deficit, No sensory deficit, Normal speech Eye Opening: Spontaneous Motor: Obeys Commands Verbal: Oriented GCS Score: 15 - Psych Psych: Normal affect, Other (Mood is slightly anxious) Results - Vitals Vitals: Vital Signs - 24 hr 02/09/21 02/09/21 22:10 23:57 Temperature 36.5 C 36.7 C Heart Rate 98 85 Respiratory 16 16 Rate Blood Pressure 140/100 H 135/68 H O2 Saturation 100 98 Oxygen O2 Source Room air PD MEDICAL DECISION MAKING - ED course Complexity details: reviewed results, re-evaluated patient, considered differential, d/w patient, d/w family ED course: 50-year-old female with a medication reaction to Haldol is administered Benadryl 25mg IM. This helps and the patient is instructed to ask for Benadryl if she ever is administered Haldol again. Departure - Departure Disposition: 01 Home, Self Care Clinical Impression: Medication reaction Qualifiers: Encounter type: initial encounter Qualified Code(s): T50.905A - Adverse effect of unspecified drugs, medicaments and biological substances, initial encounter Condition: Stable Instructions: ED Drug React Dystonic Adverse Follow-Up: Bailey Leahy DO [Primary Care Provider] - Comments: In the future if you ever are required to take Haldol again make certain it is taken with Benadryl. Discharge Date/Time: 02/09/21 23:59
[2021-02-09 23:59] VITALS: BP 135/68
== END 2021-02-09 23:59 | disposition home or self-care (01) ==
LOC: ED 22:07
DX: G43.101 Migraine with aura, not intractable, with status migrainosus (principal); R11.2 Nausea with vomiting, unspecified; T43.4X5A Adverse effect of butyrophenone and thiothixene neuroleptics, initial encounter; I10 Essential (primary) hypertension; E11.9 Type 2 diabetes mellitus without complications; Z79.4 Long term (current) use of insulin; K86.1 Other chronic pancreatitis
CPT/HCPCS: 96372; 96374; 96375; 99283; J1200

== ENCOUNTER 2021-02-15 10:04 | Outpatient (CLI) | payer MEDICAID ==
[2021-02-15 11:37] LABS: BASOPHILS # (AUTO) 0.1 10^3/uL (0.0-0.1); BASOPHILS % (AUTO) 1.5 %; EOSINOPHILS # (AUTO) 0.2 10^3/uL (0.0-0.7); EOSINOPHILS % (AUTO) 3.3 %; HCT - HEMATOCRIT 43.3 % (37.0-47.0); HGB - HEMOGLOBIN 14.3 g/dL (12.0-16.0); LYMPHOCYTES # (AUTO) 2.6 10^3/uL (1.5-3.5); LYMPHOCYTES % (AUTO) 43.8 %; MEAN CORPUSCULAR HEMOGLOBIN 29.9 pg (27.0-31.0); MEAN CORPUSCULAR VOLUME 90.6 fL (81.0-99.0); MEAN PLATELET VOLUME 9.2 fL (7.9-10.8); MONOCYTES # (AUTO) 0.4 10^3/uL (0.0-1.0); MONOCYTES % (AUTO) 7.3 %; NEUTROPHILS # (AUTO) 2.6 10^3/uL (1.5-6.6); NEUTROPHILS % (AUTO) 43.9 %; PLT - PLATELET COUNT 383 10^3/uL (130-450); RED BLOOD COUNT 4.78 10^6/uL (4.20-5.40); RED CELL DISTRIBUTION WIDTH 12.8 % (12.0-15.0)
[2021-02-15 12:03] LABS: CREATININE,URINE 19.2 mg/dL
[2021-02-15 12:08] LABS: ESTIMATED AVERAGE GLUCOSE 183 mg/dL (70-100)
[2021-02-15 12:28] LABS: THYROID STIMULATING HORMONE 2.29 uIU/mL (0.34-5.60)
[2021-02-15 12:34] LABS: ALBUMIN 4.2 g/dL (3.2-5.5); ALBUMIN/GLOBULIN RATIO 1.1 (1.0-2.2); ALKALINE PHOSPHATASE 56 IU/L (42-121); ALT ALANINE AMINOTRANSFERASE 17 IU/L (10-60); AST ASPARTATE AMINOTRANSFERASE 17 IU/L (10-42); BILIRUBIN,TOTAL 0.6 mg/dL (0.2-1.0); BUN - BLOOD UREA NITROGEN 14 mg/dL (6-20); CALCIUM 9.1 mg/dL (8.5-10.3); CARBON DIOXIDE - CO2 27 mmol/L (21-32); CHLORIDE 96 mmol/L (101-111); CHOL/HDL RATIO 4.4 (<4.4); CHOLESTEROL 209 mg/dL; CREATININE 0.9 mg/dL (0.4-1.0); GFR - MDRD 67 (>89); GLUCOSE 180 mg/dL (70-100); HDL CHOLESTEROL 48 mg/dL; LDL CHOLESTEROL,CALCULATED 92 mg/dL; LDL/HDL RATIO 1.9 (<4.4); POTASSIUM 3.6 mmol/L (3.5-5.0); SODIUM 136 mmol/L (135-145); TOTAL PROTEIN 8.2 g/dL (6.7-8.2); TRIGLYCERIDES 346 mg/dL; VLDL CHOLESTEROL 69 mg/dL
[2021-02-15 12:50] LABS: MICROALBUMIN,URINE < 0.2 mg/dL (0-300.0)
== END 2021-02-15 10:05 | disposition home or self-care (01) ==
LOC: LAB.N 10:04
PROVIDERS: ATTEND Family Medicine
DX: E11.8 Type 2 diabetes mellitus with unspecified complications (principal)
CPT/HCPCS: 36415; 80053; 80061; 82043; 82570; 83036; 83721; 84443; 85025

== ENCOUNTER 2021-03-28 15:22 | Emergency (ER) | payer MEDICAID ==
[2021-03-28 15:50] LABS: BASOPHILS # (AUTO) 0.1 10^3/uL (0.0-0.1); EOSINOPHILS # (AUTO) 0.2 10^3/uL (0.0-0.7); EOSINOPHILS % (AUTO) 1.9 %; HCT - HEMATOCRIT 43.7 % (37.0-47.0); HGB - HEMOGLOBIN 14.5 g/dL (12.0-16.0); MEAN CORPUSCULAR HEMOGLOBIN 29.9 pg (27.0-31.0); MEAN CORPUSCULAR HGB CONC 33.2 g/dL (32.0-36.0); MEAN CORPUSCULAR VOLUME 90.1 fL (81.0-99.0); MONOCYTES # (AUTO) 0.6 10^3/uL (0.0-1.0); MONOCYTES % (AUTO) 7.5 %; NEUTROPHILS # (AUTO) 4.4 10^3/uL (1.5-6.6); NEUTROPHILS % (AUTO) 53.2 %; PLT - PLATELET COUNT 378 10^3/uL (130-450); RED BLOOD COUNT 4.85 10^6/uL (4.20-5.40); RED CELL DISTRIBUTION WIDTH 12.6 % (12.0-15.0); WHITE BLOOD COUNT 8.3 x10^3/uL (4.8-10.8)
[2021-03-28 15:59] LABS: ALBUMIN 4.1 g/dL (3.2-5.5); ALBUMIN/GLOBULIN RATIO 0.9 (1.0-2.2); BILIRUBIN,TOTAL 0.6 mg/dL (0.2-1.0); CALCIUM 9.8 mg/dL (8.5-10.3); CREATININE 1.1 mg/dL (0.4-1.0); POTASSIUM 4.1 mmol/L (3.5-5.0); TOTAL PROTEIN 8.5 g/dL (6.7-8.2)
[2021-03-28] MEDS ORDERED: ONDANSETRON 4 MG/2 ML VIAL IM STA (18:13)
[2021-03-28] MEDS ORDERED: HYDROmorphone 1 MG/ML CARPUJECT IM STA (18:13)
--- NOTE | 2021-03-28 18:18 | ED Physician Documentation ---
PD HPI ABD PAIN - Stated complaint Stated Complaint: BACK/ABD PX/NAUSEA - Chief complaint Chief Complaint: Abd Pain - History obtained from History obtained from: Patient - Additional information Additional information: 51-year-old woman with chronic episodic abdominal pain. She does not have a gallbladder. It has been diagnosed as chronic pancreatitis. She does not use marijuana. Absolute for the last week she has had right upper quadrant pain radiating to back with vomiting similar to prior. Vicodin and Zofran have not been helping but she does request a refill of these. Review of Systems Constitutional: denies: Fever, Chills Cardiac: denies: Chest pain / pressure, Palpitations Respiratory: denies: Dyspnea, Cough PD PAST MEDICAL HISTORY - Past Medical History Cardiovascular: Hypertension Respiratory: None Neuro: Migraines Endocrine/Autoimmune: Type 2 diabetes GI: Pancreatitis, Cholelithiasis DESIGNER: None : None HEENT: Chronic vision loss Psych: Depression, Anxiety Musculoskeletal: None - Past Surgical History Past Surgical History: Yes General: Cholecystectomy Ortho: Knee replacement /DESIGNER: Tubal ligation, Hysterectomy, Oophrectomy, Breast reduction - Present Medications Home Medications: Ambulatory Orders Medication Instructions Recorded Confirmed Insulin Glargine [Lantus Solostar] 40 units SQ DAILY 11/03/20 02/09/21 Lisinopril [Zestril] 10 mg PO DAILY 11/03/20 02/09/21 Insulin Aspart [NovoLOG] 15 units SQ TID 11/08/20 02/09/21 Metoprolol Succinate [Toprol Xl] 25 mg PO DAILY #30 tablet 11/29/20 02/09/21 Ondansetron Odt [Zofran] 4 mg TL Q6H PRN #10 tablet 11/29/20 02/09/21 Bromfenac Sodium [Prolensa] 1 drops LEFTEYE DAILY 02/09/21 02/09/21 Ofloxacin 0.3% Ophth Drops 1 drops RIGHTEYE QID 02/09/21 02/09/21 [Ocuflox 0.3% Ophth Drops] prednisoLONE 1% OPHTH DROPS [Pred 1 drops RIGHTEYE QID 02/09/21 02/09/21 Forte 1% Ophth Drops] Dicyclomine [Bentyl] 1 - 2 tab PO QID PRN #20 cap 03/28/21 HYDROcod/ACETAM 5/325 [[place] 5/325] 1 - 2 tab PO Q6H PRN #15 tablet 03/28/21 Ondansetron Odt [Zofran] 4 mg TL Q6H PRN #10 tablet 03/28/21 - Allergies Allergies/Adverse Reactions: Allergies Allergy/AdvReac Type Severity Reaction Status Date / Time metoclopramide [From Reglan] AdvReac Rash Verified 03/28/21 15:38 - Social History Does the pt smoke?: No Smoking Status: Never smoker Does the pt drink ETOH?: No Does the pt have substance abuse?: No - Immunizations Immunizations are current?: Yes - POLST Patient has POLST: No PD ED PE NORMAL - Vitals Vital signs reviewed: Yes - General General: Alert and oriented X 3, No acute distress - Abdomen Abdomen: Normal bowel sounds, Soft, Non tender - Neuro Neuro: Alert and oriented X 3, Normal speech - Psych Psych: Normal mood, Normal affect Results - Vitals Vitals: Vital Signs - 24 hr 03/28/21 03/28/21 03/28/21 15:35 18:36 19:20 Temperature 36.6 C 36.7 C Heart Rate 102 H 97 78 Respiratory 18 18 16 Rate Blood Pressure 142/94 H 141/94 H 109/77 O2 Saturation 97 98 Oxygen O2 Source Room air - Labs Labs: Laboratory Tests 03/28/21 03/28/21 03/28/21 15:41 15:41 18:22 WBC 8.3 RBC 4.85 Hgb 14.5 Hct 43.7 MCV 90.1 MCH 29.9 MCHC 33.2 RDW 12.6 Plt Count 378 MPV 9.0 Neut # (Auto) 4.4 Lymph # (Auto) 3.0 [place] # (Auto) 0.6 Eos # (Auto) 0.2 Baso # (Auto) 0.1 Absolute Nucleated RBC 0.00 Nucleated RBC % 0.0 Sodium 135 Potassium 4.1 Chloride 99 L Carbon Dioxide 26 Anion Gap 10.0 BUN 18 Creatinine 1.1 H Estimated GFR (MDRD) 53 L Glucose 224 H Calcium 9.8 Total Bilirubin 0.6 AST 20 ALT 23 Alkaline Phosphatase 57 Total Protein 8.5 H Albumin 4.1 Globulin 4.4 H Albumin/Globulin Ratio 0.9 L Lipase 43 Urine Color YELLOW Urine Clarity CLEAR Urine pH 6.0 Ur Specific [place] >=1.030 H Urine Protein NEGATIVE Urine Glucose (UA) 500 H Urine Ketones NEGATIVE Urine Occult Blood NEGATIVE Urine Nitrite NEGATIVE Urine Bilirubin NEGATIVE Urine Urobilinogen 0.2 (NORMAL) Ur Leukocyte Esterase NEGATIVE Ur Microscopic Review NOT INDICATED Urine Culture Comments NOT INDICATED Urine HCG, Qual NEGATIVE PD MEDICAL DECISION MAKING - ED course Complexity details: reviewed old records (similar to prior), re-evaluated patient (better p meds), considered differential, d/w patient Departure - Departure Disposition: 01 Home, Self Care Clinical Impression: Abdominal pain Qualifiers: Abdominal location: right upper quadrant Qualified Code(s): R10.11 - Right upper quadrant pain Condition: Good Instructions: ED Abdominal Pain Unkn Cause Prescriptions: Dicyclomine [Bentyl] 1 - 2 tab PO QID PRN #20 cap PRN Reason: Abdominal Pain HYDROcod/ACETAM 5/325 [[place] 5/325] 1 - 2 tab PO Q6H PRN #15 tablet PRN Reason: Pain Ondansetron Odt [Zofran] 4 mg TL Q6H PRN #10 tablet PRN Reason: Nausea / Vomiting Comments: Prescription sent to [facility] in [place] Call your doctor to arrange a follow-up appointment, make the next available appointment. In the interim, return anytime if worse or if new symptoms develop. I am prescribing a short course of narcotic pain medication for you. These are potentially dangerous and addictive medications that should be used carefully. These medications may constipate you. Take an [id number] stool softener (docusate) twice daily with plenty of water while taking these medications. If you go 24 hours without a bowel movement, take [id number] miralax, per package instructions. Do not drink or drive while taking these medications. If you received narcotic or sedating medications while in the emergency department, do not drive for 24 hours. Store this medication in a safe, secure place and out of reach of children. It is a violation of federal law to give or sell this medication to another person or to use in a manner other than prescribed. The ED will not refill narcotic prescriptions, including prescriptions lost or stolen. To dispose of unwanted medications: 1. [facility] [address] in [place] has a medication drop box. They accept prescription medications (in pill form) Thursday through Thursday 9:00 a.m. to 5:00 p.m. 2. The [facility] accepts prescription medications (in pill form only) for disposal year round. Call for more information. 3. Contact the [facility] for the next [facility] sponsored prescription drug collection event. , [phone], or [phone]; Note that many narcotic pain relievers also contain Tylenol/acetaminophen. Please ensure that your total dose of acetaminophen from all sources does not exceed 3 g (3000 mg) per day. Discharge Date/Time: 03/28/21 19:21
[2021-03-28] MEDS ORDERED: HYDROmorphone 1 MG/ML CARPUJECT IVP STA (18:39)
[2021-03-28] MEDS ORDERED: ONDANSETRON 4 MG/2 ML VIAL IVP STA (18:39)
[2021-03-28 18:42] LABS: BILIRUBIN,URINE NEGATIVE (NEGATIVE); GLUCOSE, URINE (UA) 500 mg/dL (NEGATIVE); KETONES,URINE (UA) NEGATIVE (NEGATIVE); LEUKOCYTE ESTERASE, URINE NEGATIVE (NEGATIVE); NITRITE,URINE NEGATIVE (NEGATIVE); OCCULT BLOOD,URINE NEGATIVE (NEGATIVE); PROTEIN,URINE NEGATIVE (NEGATIVE); UROBILINOGEN,URINE 0.2 (NORMAL) E.U./dL (NORMAL)
[2021-03-28 18:47] LABS: CLARITY,URINE CLEAR (CLEAR); HCG UR QUAL NEGATIVE
[2021-03-28 19:21] VITALS: BP 109/77
== END 2021-03-28 19:21 | disposition home or self-care (01) ==
LOC: ED 15:22
DX: R10.11 Right upper quadrant pain (principal); E11.9 Type 2 diabetes mellitus without complications; Z79.4 Long term (current) use of insulin
CPT/HCPCS: 36415; 80053; 81003; 81025; 83690; 85025; 96374; 96375; 99283; J1170; 81001; 87086

== ENCOUNTER 2021-08-10 15:21 | Emergency (ER) | payer MEDICAID ==
[2021-08-10 17:29] LABS: BASOPHILS % (AUTO) 0.3 %; EOSINOPHILS # (AUTO) 0.1 10^3/uL (0.0-0.7); EOSINOPHILS % (AUTO) 0.8 %; HCT - HEMATOCRIT 43.5 % (37.0-47.0); HGB - HEMOGLOBIN 14.5 g/dL (12.0-16.0); LYMPHOCYTES # (AUTO) 2.8 10^3/uL (1.5-3.5); LYMPHOCYTES % (AUTO) 45.6 %; MEAN CORPUSCULAR HGB CONC 33.3 g/dL (32.0-36.0); MEAN CORPUSCULAR VOLUME 90.1 fL (81.0-99.0); MEAN PLATELET VOLUME 8.9 fL (7.9-10.8); MONOCYTES # (AUTO) 0.6 10^3/uL (0.0-1.0); MONOCYTES % (AUTO) 9.5 %; NEUTROPHILS # (AUTO) 2.6 10^3/uL (1.5-6.6); NEUTROPHILS % (AUTO) 43.1 %; PLT - PLATELET COUNT 270 10^3/uL (130-450); RED BLOOD COUNT 4.83 10^6/uL (4.20-5.40); RED CELL DISTRIBUTION WIDTH 12.7 % (12.0-15.0); WHITE BLOOD COUNT 6.1 x10^3/uL (4.8-10.8)
--- NOTE | 2021-08-10 17:29 | ED Physician Documentation ---
History of Present Illness - Stated complaint Stated Complaint: DIARRHEA,VOMITING, - Chief complaint Chief Complaint: General - History obtained from History obtained from: Patient - History of Present Illness Timing: How many days ago (2) Pain level max: 5 Pain level now: 4 - Additonal information Additional information: 51-year-old female presents to the emergency department with diarrhea for the past 4 days, nausea and vomiting x2 days. She states she is out of her Zofran at home. She has a longstanding history of diabetes. States her blood sugar was 178 at home today. No fevers. No chills. No recent antibiotics. No recent travel. Nothing makes it better or worse. Review of Systems Constitutional: denies: Fever, Chills Nose: denies: Rhinorrhea / runny nose, Congestion Throat: denies: Sore throat Respiratory: denies: Dyspnea, Cough GI: reports: Abdominal Pain (crampy, diffuse), Vomiting, Diarrhea. 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 : None HEENT: Chronic vision loss Psych: Depression, Anxiety Musculoskeletal: None - Past Surgical History Past Surgical History: Yes General: Cholecystectomy Ortho: Knee replacement /SENIOR WATER RESOURCES ENGINEER: Tubal ligation, Hysterectomy, Oophrectomy, Breast reduction - Present Medications Home Medications: Ambulatory Orders Medication Instructions Recorded Confirmed Insulin Glargine [Lantus Solostar] 40 units SQ DAILY 11/03/20 02/09/21 Lisinopril [Zestril] 10 mg PO DAILY 11/03/20 02/09/21 Insulin Aspart [NovoLOG] 15 units SQ TID 11/08/20 02/09/21 Metoprolol Succinate [Toprol Xl] 25 mg PO DAILY #30 tablet 11/29/20 02/09/21 Ondansetron Odt [Zofran] 4 mg TL Q6H PRN #10 tablet 11/29/20 02/09/21 Bromfenac Sodium [Prolensa] 1 drops LEFTEYE DAILY 02/09/21 02/09/21 Ofloxacin 0.3% Ophth Drops 1 drops RIGHTEYE QID 02/09/21 02/09/21 [Ocuflox 0.3% Ophth Drops] prednisoLONE 1% OPHTH DROPS [Pred 1 drops RIGHTEYE QID 02/09/21 02/09/21 Forte 1% Ophth Drops] Dicyclomine [Bentyl] 1 - 2 tab PO QID PRN #20 cap 03/28/21 HYDROcod/ACETAM 5/325 [[place] 5/325] 1 - 2 tab PO Q6H PRN #15 tablet 03/28/21 Ondansetron Odt [Zofran] 4 mg TL Q6H PRN #10 tablet 03/28/21 Dicyclomine [Bentyl] 10 mg PO QID PRN #30 cap 08/10/21 Ondansetron Odt [Zofran] 4 mg TL Q6H PRN #10 tablet 08/10/21 - Allergies Allergies/Adverse Reactions: Allergies Allergy/AdvReac Type Severity Reaction Status Date / Time haloperidol Allergy Hallucinati Verified 08/10/21 15:38 ons metoclopramide [From Reglan] AdvReac Rash Verified 08/10/21 15:38 - Social History Does the pt smoke?: No Smoking Status: Never smoker Does the pt drink ETOH?: No Does the pt have substance abuse?: No - Immunizations Immunizations are current?: Yes - POLST Patient has POLST: No PD ED PE NORMAL - Vitals Vital signs reviewed: Yes - General General: Alert and oriented X 3, No acute distress - HEENT HEENT: Moist mucous membranes - Neck Neck: Supple, no meningeal sign - Cardiac Cardiac: RRR - Respiratory Respiratory: No respiratory distress, Clear bilaterally - Abdomen Abdomen: Soft, Non distended, Other (Mild diffuse tender palpation without peritoneal signs) - Back Back: No spinal TTP - Derm Derm: Warm and dry - Extremities Extremities: No edema - Neuro Neuro: Alert and oriented X 3 - Psych Psych: Normal mood, Normal affect Results - Vitals Vitals: Vital Signs - 24 hr 08/10/21 08/10/21 15:33 18:57 Temperature 36.6 C 36.6 C Heart Rate 96 97 Respiratory 16 16 Rate Blood Pressure 112/78 123/83 H O2 Saturation 99 98 Oxygen O2 Source Room air - Labs Labs: Laboratory Tests 08/10/21 08/10/21 08/10/21 17:22 17:22 17:51 WBC 6.1 RBC 4.83 Hgb 14.5 Hct 43.5 MCV 90.1 MCH 30.0 MCHC 33.3 RDW 12.7 Plt Count 270 MPV 8.9 Neut # (Auto) 2.6 Lymph # (Auto) 2.8 [place] # (Auto) 0.6 Eos # (Auto) 0.1 Baso # (Auto) 0.0 Absolute Nucleated RBC 0.00 Nucleated RBC % 0.0 Sodium 133 L Potassium 3.5 Chloride 96 L Carbon Dioxide 27 Anion Gap 10.0 BUN 15 Creatinine 1.0 Estimated GFR (MDRD) 59 L Glucose 195 H Calcium 8.8 Total Bilirubin 0.4 AST 26 ALT 30 Alkaline Phosphatase 44 Total Protein 7.6 Albumin 4.1 Globulin 3.5 Albumin/Globulin Ratio 1.2 Lipase 27 Urine Color YELLOW Urine Clarity CLEAR Urine pH 6.0 Ur Specific [place] >=1.030 H Urine Protein NEGATIVE Urine Glucose (UA) 500 H Urine Ketones TRACE Urine Occult Blood NEGATIVE Urine Nitrite NEGATIVE Urine Bilirubin NEGATIVE Urine Urobilinogen 0.2 (NORMAL) Ur Leukocyte Esterase NEGATIVE Ur Microscopic Review NOT INDICATED Urine Culture Comments NOT INDICATED PD MEDICAL DECISION MAKING - ED course Complexity details: reviewed results, re-evaluated patient, considered differential, d/w patient ED course: Patient is a 51-year-old female who presents with what appears to be a viral gastroenteritis. Feels better after Bentyl and Zofran. Tolerating p.o. without difficulty. No significant lab abnormalities. No indication for imaging at this time. Patient is well-appearing, nontoxic. Afebrile. Patient counseled regarding signs and symptoms for which I believe and urgent re-evaluation would be necessary. Patient with good understanding of and agreement to plan and is comfortable going home at this time This document was made in part using voice recognition software. While efforts are made to proofread this document, sound alike and grammatical errors may occur. Departure - Departure Disposition: 01 Home, Self Care Clinical Impression: Viral gastroenteritis Condition: Good Instructions: ED Gastroenteritis Viral Follow-Up: Bailey Leahy DO [Primary Care Provider] - Within 1 week Prescriptions: Dicyclomine [Bentyl] 10 mg PO QID PRN #30 cap PRN Reason: Abdominal Pain Ondansetron Odt [Zofran] 4 mg TL Q6H PRN #10 tablet PRN Reason: Nausea / Vomiting Comments: Your prescriptions were sent to in [place]. Drink plenty of fluids and rest. This should resolve over the next 2 to 3 days. Return if you worsen. Discharge Date/Time: 08/10/21 18:58
[2021-08-10] MEDS ORDERED: ONDANSETRON ODT 4 MG TABLET TL STA (17:39)
[2021-08-10 17:42] LABS: ALBUMIN 4.1 g/dL (3.2-5.5); ALBUMIN/GLOBULIN RATIO 1.2 (1.0-2.2); BILIRUBIN,TOTAL 0.4 mg/dL (0.2-1.0); CALCIUM 8.8 mg/dL (8.5-10.3); POTASSIUM 3.5 mmol/L (3.5-5.0); TOTAL PROTEIN 7.6 g/dL (6.7-8.2)
[2021-08-10 17:58] LABS: BILIRUBIN,URINE NEGATIVE (NEGATIVE); GLUCOSE, URINE (UA) 500 mg/dL (NEGATIVE); KETONES,URINE (UA) TRACE mg/dL (NEGATIVE); LEUKOCYTE ESTERASE, URINE NEGATIVE (NEGATIVE); NITRITE,URINE NEGATIVE (NEGATIVE); OCCULT BLOOD,URINE NEGATIVE (NEGATIVE); PROTEIN,URINE NEGATIVE (NEGATIVE); UROBILINOGEN,URINE 0.2 (NORMAL) E.U./dL (NORMAL)
[2021-08-10 17:59] LABS: CLARITY,URINE CLEAR (CLEAR)
[2021-08-10] MEDS ORDERED: DICYCLOMINE 10 MG CAPSULE PO STA (18:41)
[2021-08-10 18:58] VITALS: BP 123/83
== END 2021-08-10 18:58 | disposition home or self-care (01) ==
LOC: ED 15:21
DX: A08.4 Viral intestinal infection, unspecified (principal); I10 Essential (primary) hypertension; E11.9 Type 2 diabetes mellitus without complications; Z79.4 Long term (current) use of insulin
CPT/HCPCS: 36415; 80053; 81003; 83690; 85025; 99282; 99283; A9270; Q0162; 81001; 87086

== ENCOUNTER 2021-08-31 15:36 | Emergency (ER) | payer MEDICAID ==
[2021-08-31 15:55] LABS: BILIRUBIN,URINE NEGATIVE (NEGATIVE); GLUCOSE, URINE (UA) 500 mg/dL (NEGATIVE); KETONES,URINE (UA) NEGATIVE (NEGATIVE); LEUKOCYTE ESTERASE, URINE NEGATIVE (NEGATIVE); NITRITE,URINE NEGATIVE (NEGATIVE); OCCULT BLOOD,URINE NEGATIVE (NEGATIVE); PH,URINE 5.5 PH (5.0-7.5); PROTEIN,URINE NEGATIVE (NEGATIVE); UROBILINOGEN,URINE 0.2 (NORMAL) E.U./dL (NORMAL)
[2021-08-31 15:58] LABS: CLARITY,URINE CLEAR (CLEAR); HCG UR QUAL NEGATIVE
--- NOTE | 2021-08-31 16:00 | ED Physician Documentation ---
History of Present Illness - Stated complaint Stated Complaint: VOM/NECK PAIN - Chief complaint Chief Complaint: Abd Pain - Additonal information Additional information: Patient is a 51-year-old female presenting to the emergency department with epigastric abdominal pain, nausea, vomiting. Reports pain that radiates up into her shoulder and neck. States has had frequent episodes of pain similar to this in the past. Reports that it is always "of my pancreas". Reports that she is status post cholecystectomy. Denies any alcohol consumption. Was denies for fever, chills, new rash, new weakness/numbness/tingling in any extremity. Review of Systems Ten Systems: 10 systems reviewed and negative Constitutional: denies: Fever, Chills Eyes: denies: Loss of vision Ears: denies: Loss of hearing Nose: denies: Rhinorrhea / runny nose Throat: denies: Dental pain / toothache Cardiac: denies: Chest pain / pressure, Palpitations Respiratory: denies: Dyspnea, Cough, Hemoptysis GI: reports: Abdominal Pain, Nausea, Vomiting, Diarrhea : denies: Dysuria Skin: denies: Rash Musculoskeletal: denies: Neck pain Neurologic: denies: Generalized weakness PD PAST MEDICAL HISTORY - Past Medical History Cardiovascular: Hypertension Respiratory: None Neuro: Migraines Endocrine/Autoimmune: Type 2 diabetes GI: Pancreatitis, Cholelithiasis 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 HEENT: Chronic vision loss Psych: Depression, Anxiety Musculoskeletal: None - Past Surgical History Past Surgical History: Yes General: Cholecystectomy Ortho: Knee replacement /PURCHASING ASSISTANT: Tubal ligation, Hysterectomy, Oophrectomy, Breast reduction - Present Medications Home Medications: Ambulatory Orders Medication Instructions Recorded Confirmed Insulin Glargine [Lantus Solostar] 40 units SQ HS 11/03/20 08/31/21 Lisinopril [Zestril] 10 mg PO DAILY 11/03/20 08/31/21 Insulin Aspart [NovoLOG] 15 units SQ TID 11/08/20 02/09/21 Dicyclomine [Bentyl] 1 - 2 tab PO QID PRN #20 cap 03/28/21 08/31/21 HYDROcod/ACETAM 5/325 [[place] 5/325] 1 - 2 tab PO Q6H PRN #15 tablet 03/28/21 08/31/21 Ondansetron Odt [Zofran] 4 mg TL Q6H PRN #10 tablet 08/10/21 08/31/21 Fluoxetine HCl [Prozac] 20 mg PO DAILY 08/31/21 08/31/21 LORazepam [Ativan] 1 mg PO BID PRN 08/31/21 08/31/21 Metoprolol Succinate [Toprol Xl] 25 mg PO DAILY PM 08/31/21 08/31/21 Promethazine Supp [Phenergan Supp] 25 mg MA Q8HR #30 supp 08/31/21 diphenhydrAMINE [Benadryl] 25 - 50 mg PO Q6HR PRN 08/31/21 08/31/21 - Allergies Allergies/Adverse Reactions: Allergies Allergy/AdvReac Type Severity Reaction Status Date / Time haloperidol Allergy Hallucinati Verified 08/31/21 15:45 ons metoclopramide [From Reglan] AdvReac Rash Verified 08/31/21 15:45 - Social History Does the pt smoke?: No Smoking Status: Never smoker Does the pt drink ETOH?: No Does the pt have substance abuse?: No - Immunizations Immunizations are current?: Yes - POLST Patient has POLST: No PD ED PE NORMAL - General General: Alert and oriented X 3 - HEENT HEENT: Atraumatic - Neck Neck: Supple, no meningeal sign - Cardiac Cardiac: RRR - Respiratory Respiratory: No respiratory distress - Abdomen Abdomen: Normal bowel sounds - Female Female : Deferred - Rectal Rectal: Deferred - Back Back: No CVA TTP - Derm Derm: Normal color - Extremities Extremities: No deformity Results - Vitals Vitals: Vital Signs - 24 hr 08/31/21 08/31/21 15:41 15:57 Temperature 36.3 C L 36.5 C Heart Rate 95 95 Respiratory 18 18 Rate Blood Pressure 132/93 H 132/93 H O2 Saturation 100 100 Oxygen O2 Source Room air - EKG (time done) 1610 Rate: Rate (enter#) (85) Rhythm: NSR [place]: Normal Intervals: Normal MA. No: Prolonged QT QRS: Normal Ischemia: Normal ST segments. No: Hyperacute T waves, T wave inversion Other comments: Other comments (Premature ventricular complexes) - Labs Labs: Laboratory Tests 08/31/21 08/31/21 08/31/21 15:50 15:59 15:59 WBC 11.1 H RBC 5.07 Hgb 15.3 Hct 45.4 MCV 89.5 MCH 30.2 MCHC 33.7 RDW 12.5 Plt Count 375 MPV 9.0 Neut # (Auto) 6.3 Lymph # (Auto) 3.4 [place] # (Auto) 1.1 H Eos # (Auto) 0.2 Baso # (Auto) 0.1 Absolute Nucleated RBC 0.00 Nucleated RBC % 0.0 Sodium 133 L Potassium 3.6 Chloride 93 L Carbon Dioxide 29 Anion Gap 11.0 BUN 17 Creatinine 0.9 Estimated GFR (MDRD) 66 L Glucose 305 H Calcium 9.5 Total Bilirubin 0.2 AST 22 ALT 30 Alkaline Phosphatase 60 Total Protein 8.5 H Albumin 4.3 Globulin 4.2 Albumin/Globulin Ratio 1.0 Lipase 34 Urine Color YELLOW Urine Clarity CLEAR Urine pH 5.5 Ur Specific [place] >=1.030 H Urine Protein NEGATIVE Urine Glucose (UA) 500 H Urine Ketones NEGATIVE Urine Occult Blood NEGATIVE Urine Nitrite NEGATIVE Urine Bilirubin NEGATIVE Urine Urobilinogen 0.2 (NORMAL) Ur Leukocyte Esterase NEGATIVE Ur Microscopic Review NOT INDICATED Urine Culture Comments NOT INDICATED Urine HCG, Qual NEGATIVE PD MEDICAL DECISION MAKING - ED course Complexity details: reviewed results, re-evaluated patient, d/w patient ED course: Patient is a 51-year-old female presenting to the emergency department 4 days, nausea vomiting and diarrhea. Afebrile, hemodynamically stable on arrival to the emergency department. Benign abdominal exam. Comprehensive labs obtained within normal limits are nonactionable. Of note patient lipase is within a normal limit. EKG is on above was negative for indications of acute cardiac ischemia or dysrhythmia. She was given medication for pain, nausea and IV hydration. She did endorse for persistent pain and was given an IM dose of Phenergan however on reevaluation reported feeling significantly better. I discussed options for symptomatic management at home and she reports that she has used Phenergan suppositories in the past with great effect. I will write prescription for Phenergan suppositories for use as needed. I encouraged careful follow-up with primary care or return to the emergency department for new or worsening symptoms. Departure - Departure Disposition: 01 Home, Self Care Clinical Impression: Vomiting Instructions: ED Nausea Vomiting Ch Prescriptions: Promethazine Supp [Phenergan Supp] 25 mg MA Q8HR #30 supp Comments: Thank you for allowing us to care for you at at [facility]. Your prescriptions were sent electronically to [facility] in [place] I am very glad that you are feeling better. All the labs performed in the emergency department and your EKG were very reassuring. Please stay well- hydrated at home. Please do follow-up with your primary care doctor as soon as you are able.
[2021-08-31 16:03] LABS: BASOPHILS # (AUTO) 0.1 10^3/uL (0.0-0.1); BASOPHILS % (AUTO) 0.8 %; EOSINOPHILS # (AUTO) 0.2 10^3/uL (0.0-0.7); HCT - HEMATOCRIT 45.4 % (37.0-47.0); HGB - HEMOGLOBIN 15.3 g/dL (12.0-16.0); LYMPHOCYTES # (AUTO) 3.4 10^3/uL (1.5-3.5); LYMPHOCYTES % (AUTO) 30.4 %; MEAN CORPUSCULAR HEMOGLOBIN 30.2 pg (27.0-31.0); MEAN CORPUSCULAR HGB CONC 33.7 g/dL (32.0-36.0); MEAN CORPUSCULAR VOLUME 89.5 fL (81.0-99.0); MONOCYTES # (AUTO) 1.1 10^3/uL (0.0-1.0); MONOCYTES % (AUTO) 9.5 %; NEUTROPHILS # (AUTO) 6.3 10^3/uL (1.5-6.6); PLT - PLATELET COUNT 375 10^3/uL (130-450); RED BLOOD COUNT 5.07 10^6/uL (4.20-5.40); RED CELL DISTRIBUTION WIDTH 12.5 % (12.0-15.0); WHITE BLOOD COUNT 11.1 x10^3/uL (4.8-10.8)
[2021-08-31] MEDS ORDERED: SODIUM CHLORIDE 0.9% 1,000 ML IV STA (16:07)
[2021-08-31] MEDS ORDERED: ONDANSETRON 4 MG/2 ML VIAL IVP STA (16:07)
[2021-08-31] MEDS ORDERED: MORPHINE 2 MG/ML CARPUJECT IVP STA (16:07)
[2021-08-31 16:20] LABS: ALBUMIN 4.3 g/dL (3.2-5.5); BILIRUBIN,TOTAL 0.2 mg/dL (0.2-1.0); CALCIUM 9.5 mg/dL (8.5-10.3); CREATININE 0.9 mg/dL (0.4-1.0); POTASSIUM 3.6 mmol/L (3.5-5.0); TOTAL PROTEIN 8.5 g/dL (6.7-8.2)
[2021-08-31] MEDS ORDERED: PROMETHAZINE 25 MG/1 ML VIAL IM STA (16:50)
[2021-08-31 17:44] VITALS: BP 120/82
== END 2021-08-31 17:50 | disposition home or self-care (01) ==
LOC: ED 15:36
DX: R11.2 Nausea with vomiting, unspecified (principal); E11.9 Type 2 diabetes mellitus without complications; Z79.4 Long term (current) use of insulin
CPT/HCPCS: 36415; 80053; 81001; 81003; 81025; 83690; 85025; 87086; 93005; 96361; 96374; 96375; 99283

== ENCOUNTER 2021-10-12 15:04 | Emergency (ER) | payer MEDICAID ==
[2021-10-12 15:49] LABS: BASOPHILS # (AUTO) 0.1 10^3/uL (0.0-0.1); BASOPHILS % (AUTO) 0.8 %; EOSINOPHILS # (AUTO) 0.2 10^3/uL (0.0-0.7); EOSINOPHILS % (AUTO) 2.3 %; HCT - HEMATOCRIT 43.7 % (37.0-47.0); HGB - HEMOGLOBIN 14.9 g/dL (12.0-16.0); LYMPHOCYTES # (AUTO) 3.2 10^3/uL (1.5-3.5); LYMPHOCYTES % (AUTO) 42.5 %; MEAN CORPUSCULAR HEMOGLOBIN 30.1 pg (27.0-31.0); MEAN CORPUSCULAR HGB CONC 34.1 g/dL (32.0-36.0); MEAN CORPUSCULAR VOLUME 88.3 fL (81.0-99.0); MEAN PLATELET VOLUME 9.1 fL (7.9-10.8); MONOCYTES # (AUTO) 0.6 10^3/uL (0.0-1.0); MONOCYTES % (AUTO) 7.8 %; NEUTROPHILS # (AUTO) 3.5 10^3/uL (1.5-6.6); NEUTROPHILS % (AUTO) 46.3 %; PLT - PLATELET COUNT 352 10^3/uL (130-450); RED BLOOD COUNT 4.95 10^6/uL (4.20-5.40); RED CELL DISTRIBUTION WIDTH 12.5 % (12.0-15.0); WHITE BLOOD COUNT 7.5 x10^3/uL (4.8-10.8)
--- NOTE | 2021-10-12 15:52 | ED Physician Documentation ---
History of Present Illness - Stated complaint Stated Complaint: CHEST PX/SOA - Chief complaint Chief Complaint: Cardiac - Additonal information Additional information: 51-year-old female has a history of hypertension and diabetes presents emergency department for evaluation of a few days substernal chest pain and pressure. Nonradiating. She reports that he gets worse with exertion and when she does her typical walks she finds that her shortness of air and chest pain increases. It improves with rest. Patient does have hypertension and is on metoprolol and lisinopril. Also diabetic on Lantus at night with a sliding scale during the day. No tobacco use. She had an echocardiogram done in 2020 that was unremarkable. States she had a stress test about 5 years ago in [place] that was also negative. She typically attributes her chest pain to anxiety but Ativan this week has not helped. Review of Systems Constitutional: denies: Fever, Chills Eyes: reports: Reviewed and negative Nose: reports: Reviewed and negative Throat: reports: Reviewed and negative Cardiac: reports: Chest pain / pressure. denies: Palpitations, Pedal edema, Calf pain Respiratory: reports: Dyspnea. denies: Cough, Hemoptysis, Wheezing GI: reports: Nausea (chronic). denies: Abdominal Pain, Vomiting : reports: Reviewed and negative Skin: reports: Reviewed and negative Musculoskeletal: reports: Reviewed and negative PD PAST MEDICAL HISTORY - Past Medical History Cardiovascular: Hypertension Respiratory: None Neuro: Migraines Endocrine/Autoimmune: Type 2 diabetes GI: Pancreatitis, Cholelithiasis STAMP COLLECTOR: None : None HEENT: Chronic vision loss Psych: Depression, Anxiety Musculoskeletal: None - Past Surgical History Past Surgical History: Yes General: Cholecystectomy Ortho: Knee replacement /STAMP COLLECTOR: Tubal ligation, Hysterectomy, Oophrectomy, Breast reduction - Present Medications Home Medications: Ambulatory Orders Medication Instructions Recorded Confirmed Insulin Glargine [Lantus Solostar] 40 units SQ HS 11/03/20 08/31/21 Lisinopril [Zestril] 10 mg PO DAILY 11/03/20 08/31/21 Insulin Aspart [NovoLOG] 15 units SQ TID 11/08/20 02/09/21 Dicyclomine [Bentyl] 1 - 2 tab PO QID PRN #20 cap 03/28/21 08/31/21 HYDROcod/ACETAM 5/325 [[place] 5/325] 1 - 2 tab PO Q6H PRN #15 tablet 03/28/21 08/31/21 Ondansetron Odt [Zofran] 4 mg TL Q6H PRN #10 tablet 08/10/21 08/31/21 Fluoxetine HCl [Prozac] 20 mg PO DAILY 08/31/21 08/31/21 LORazepam [Ativan] 1 mg PO BID PRN 08/31/21 08/31/21 Metoprolol Succinate [Toprol Xl] 25 mg PO DAILY PM 08/31/21 08/31/21 Promethazine Supp [Phenergan Supp] 25 mg [place] Q8HR #30 supp 08/31/21 diphenhydrAMINE [Benadryl] 25 - 50 mg PO Q6HR PRN 08/31/21 08/31/21 - Allergies Allergies/Adverse Reactions: Allergies Allergy/AdvReac Type Severity Reaction Status Date / Time haloperidol Allergy Hallucinati Verified 10/12/21 15:15 ons metoclopramide [From Reglan] AdvReac Rash Verified 10/12/21 15:15 - Social History Does the pt smoke?: No Smoking Status: Never smoker Does the pt drink ETOH?: No Does the pt have substance abuse?: No - Immunizations Immunizations are current?: Yes - POLST Patient has POLST: No PD ED PE NORMAL - General General: Alert and oriented X 3, No acute distress, Well developed/nourished, Other (morbidely obese) - HEENT HEENT: Atraumatic, Moist mucous membranes, Pharynx benign - Neck Neck: Supple, no meningeal sign, No adenopathy - Cardiac Cardiac: RRR, No murmur, No gallop - Respiratory Respiratory: No respiratory distress, Clear bilaterally - Abdomen Abdomen: Normal bowel sounds, Soft, Non tender - Back Back: No CVA TTP, No spinal TTP - Derm Derm: Normal color, Warm and dry, No rash - Extremities Extremities: No deformity, No tenderness to palpate, Normal ROM s pain - Neuro Neuro: Alert and oriented X 3, pullboat engineer 2-12 intact Eye Opening: Spontaneous Motor: Obeys Commands Verbal: Oriented GCS Score: 15 - Psych Psych: Normal mood Results - Vitals Vitals: Vital Signs - 24 hr 10/12/21 15:09 Temperature 36.1 C L Heart Rate 102 H Respiratory 28 H Rate Blood Pressure 135/93 H O2 Saturation 100 Oxygen O2 Source Room air - EKG (time done) 1512 Rate: Rate (enter#) (91) Rhythm: NSR [place]: Anterior hemiblock QRS: Low voltage Ischemia: Q waves (V2-5) Compare to prior EKG: Unchanged from prior EKG (unchanged 08/31/21) Computer interpretation: Agree with computer - Labs Labs: Laboratory Tests 10/12/21 10/12/21 10/12/21 15:40 15:40 15:40 WBC 7.5 RBC 4.95 Hgb 14.9 Hct 43.7 MCV 88.3 MCH 30.1 MCHC 34.1 RDW 12.5 Plt Count 352 MPV 9.1 Neut # (Auto) 3.5 Lymph # (Auto) 3.2 [place] # (Auto) 0.6 Eos # (Auto) 0.2 Baso # (Auto) 0.1 Absolute Nucleated RBC 0.00 Nucleated RBC % 0.0 Sodium 131 L Potassium 4.0 Chloride 96 L Carbon Dioxide 24 Anion Gap 11.0 BUN 20 Creatinine 0.9 Estimated GFR (MDRD) 66 L Glucose 304 H Calcium 9.2 Total Bilirubin 0.4 AST 21 ALT 27 Alkaline Phosphatase 52 Troponin I High Sens 2.6 Total Protein 8.0 Albumin 4.2 Globulin 3.8 Albumin/Globulin Ratio 1.1 Lipase 36 - Rads (name of study) cxr Radiology: Final report received (No acute cardiopulmonary process) PD MEDICAL DECISION MAKING - ED course Complexity details: reviewed old records, reviewed results, re-evaluated jarrett miner, considered differential, d/w patient ED course: 51-year-old female who has a history of morbid obesity, hypertension and diabetes presents the emergency department for evaluation of 3 days exertional substernal chest pain. Reports that it improves with rest. She reports a stress test about 5 years ago in [place] that was normal. Unremarkable echocardiogram completed here at [facility] about 1 year ago. On presentation she appears well. Screening EKG is nonischemic and is unchanged from her most recent one in August 2021. No acute ischemic findings. Her high-sensitivity troponin is negative. I did offer the patient nitroglycerin but she feels that it makes her anxious and declined administration of this. I discussed with the patient that her exertional chest pain is very suggestive of angina. We discussed that given her heart score of 4, she likely needs a more emergent stress test and/or cardiac catheterization. I offered the patient the option of transfer to an outside facility for further cardiac evaluation that is not available here at [facility] but the patient feels that this would cause an increase in her anxiety and stress and be more detrimental to her health. Therefore she is going to be discharged home. She will follow-up with Dr. Leahy's office this week to request urgent cardiology referral. Patient was advised to begin taking 81 mg of aspirin daily. 325 mg was administered here in the emergency department. She understands that if at any point her chest pain or symptoms worsen she should return immediately to the emergency department. She declined a prescription for nitroglycerin. Departure - Departure Disposition: Home, Self Care Clinical Impression: Exertional angina Condition: Stable Record reviewed to determine appropriate education?: Yes Instructions: Angina Dc Follow-Up: Bailey Leahy DO [Primary Care Provider] - Comments: Crystal you were seen today in the emergency department for about 3 days of exertional chest pain and pressure. You do have multiple risk factors for heart disease that include diabetes and hypertension. Today your screening labs, EKG and chest x-ray do not show any worrisome findings. Your EKG is no different than it was in August of this year. However it is very important that you see a teacher education director as soon as possible. You should be scheduled for an outpatient stress test and or be further evaluated with a cardiac catheterization to look at the blood flow through your vessels. If at any point you find that your chest pain or symptoms are worsening you must return immediately to the ER. You were given 325 mg of aspirin today here in the emergency department. I recommend you begin taking a daily aspirin. Continue your metoprolol, lisinopril, statin and insulins at home as you are otherwise taking them.
[2021-10-12] MEDS ORDERED: NITROGLYCERIN SL 0.4 MG TABLET SL STA (16:01)
--- NOTE | 2021-10-12 16:01 | XRAY Report ---
PROCEDURE: Chest 1 View X-Ray INDICATIONS: Chest pain TECHNIQUE: One view of the chest was acquired. COMPARISON: 12/09/2020 FINDINGS: Surgical changes and devices: None. Lungs and pleura: No pleural effusions or pneumothorax. Lungs are clear. Mediastinum: Mediastinal contours appear normal. Heart size is normal. Bones and chest wall: No suspicious bony lesions. Overlying soft tissues appear unremarkable. IMPRESSION: No acute cardiopulmonary pathology. Reviewed by: Hemal Woods MD on 10/12/2021 4:00 PM [facility] Approved by: Hemal Woods MD on 10/12/2021 4:00 PM [facility] Station ID: [id number]
[2021-10-12 16:08] LABS: ALBUMIN 4.2 g/dL (3.2-5.5); ALBUMIN/GLOBULIN RATIO 1.1 (1.0-2.2); BILIRUBIN,TOTAL 0.4 mg/dL (0.2-1.0); CALCIUM 9.2 mg/dL (8.5-10.3); CREATININE 0.9 mg/dL (0.4-1.0)
[2021-10-12] MEDS ORDERED: ASPIRIN 325 MG TABLET PO STA (16:32)
[2021-10-12 17:03] VITALS: BP 110/69
== END 2021-10-12 17:07 | disposition home or self-care (01) ==
LOC: ED 15:04
DX: I20.8 Other forms of angina pectoris (principal); I10 Essential (primary) hypertension; E11.9 Type 2 diabetes mellitus without complications; Z79.4 Long term (current) use of insulin; E66.01 Morbid (severe) obesity due to excess calories
CPT/HCPCS: 36415; 71045; 80053; 83690; 84484; 85025; 93005; 99284; A9270

== ENCOUNTER 2021-12-14 14:25 | Outpatient (CLI) | payer MEDICAID | END 2021-12-14 14:26 | disposition critical access hospital (66) | LOC: EMS 14:25 | DX: R06.02 Shortness of breath (principal) | CPT/HCPCS: A0425; A0427; A0999 ==

== ENCOUNTER 2021-12-14 14:55 | Emergency (ER) | payer MEDICAID ==
--- NOTE | 2021-12-14 15:35 | ED Physician Documentation ---
PD HPI URI - Stated complaint Stated Complaint: SOA/COUGH - Chief complaint Chief Complaint: Resp - History obtained from History obtained from: Patient, Family - History of Present Illness Timing - onset: How many days ago (4) Timing duration: Days (4) Timing details: Gradual onset, Still present, Waxing and waning Associated symptoms: Sinus pain, Sore throat, Productive cough (clear white sputum), Dyspnea Contributing factors: Unimmunized Improves by: Rest Worsened by: Activity Similar symptoms before: Diagnosis (bronchitis and pneumonia) Recently seen: Not recently seen - Additional information Additional information: 51-year-old Radha Bae has developed a cough and congestion and she is having coughing paroxysms so hard that she is vomiting. She has had this happen to her previously and she has had to be on a course of prednisone with it. She has used an inhaler previously and feels like she could probably benefit from the use now. She did do a COVID test at home yesterday and today both were negative. She has not had fever. She feels the allergies have been bothering her a lot and she has itching in her nose and her throat and ears. This is somewhat improved with use of Benadryl or loratadine. She is on insulin and has sliding scale. Review of Systems Constitutional: denies: Fever Eyes: denies: Decreased vision Ears: denies: Ear pain Nose: reports: Rhinorrhea / runny nose, Congestion, Sinus pressure / pain Throat: reports: Sore throat Cardiac: denies: Chest pain / pressure, Palpitations Respiratory: reports: Dyspnea, Cough, Wheezing GI: reports: Vomiting. denies: Nausea : denies: Dysuria, Frequency PD PAST MEDICAL HISTORY - Past Medical History Cardiovascular: Hypertension Respiratory: None Neuro: Migraines Endocrine/Autoimmune: Type 2 diabetes GI: Pancreatitis, Cholelithiasis DOOR LINER: None : None HEENT: Chronic vision loss Psych: Depression, Anxiety Musculoskeletal: None - Past Surgical History Past Surgical History: Yes General: Cholecystectomy Ortho: Knee replacement /DOOR LINER: Tubal ligation, Hysterectomy, Oophrectomy, Breast reduction - Present Medications Home Medications: Ambulatory Orders Medication Instructions Recorded Confirmed Insulin Glargine [Lantus Solostar] 40 units SQ HS 11/03/20 08/31/21 Lisinopril [Zestril] 10 mg PO DAILY 11/03/20 08/31/21 Insulin Aspart [NovoLOG] 15 units SQ TID 11/08/20 02/09/21 Dicyclomine [Bentyl] 1 - 2 tab PO QID PRN #20 cap 03/28/21 08/31/21 HYDROcod/ACETAM 5/325 [[place] 5/325] 1 - 2 tab PO Q6H PRN #15 tablet 03/28/21 08/31/21 Ondansetron Odt [Zofran] 4 mg TL Q6H PRN #10 tablet 08/10/21 08/31/21 Fluoxetine HCl [Prozac] 20 mg PO DAILY 08/31/21 08/31/21 LORazepam [Ativan] 1 mg PO BID PRN 08/31/21 08/31/21 Metoprolol Succinate [Toprol Xl] 25 mg PO DAILY PM 08/31/21 08/31/21 Promethazine Supp [Phenergan Supp] 25 mg [place] Q8HR #30 supp 08/31/21 diphenhydrAMINE [Benadryl] 25 - 50 mg PO Q6HR PRN 08/31/21 08/31/21 Albuterol Sulf [Ventolin Hfa 1 - 2 puffs INH Q4HR PRN #1 inhaler 12/14/21 Inhaler] Benzonatate [Tessalon] 100 - 200 mg PO TID PRN #30 cap 12/14/21 predniSONE [Deltasone] 40 mg PO DAILY 5 Days #10 tablet 12/14/21 - Allergies Allergies/Adverse Reactions: Allergies Allergy/AdvReac Type Severity Reaction Status Date / Time haloperidol Allergy Hallucinati Verified 12/14/21 15:00 ons metoclopramide [From Reglan] AdvReac Rash Verified 12/14/21 15:00 - Social History Does the pt smoke?: No Smoking Status: Never smoker Does the pt drink ETOH?: No Does the pt have substance abuse?: No - Immunizations Immunizations are current?: Yes - POLST Patient has POLST: No PD ED PE NORMAL - Vitals Vital signs reviewed: Yes - General General: Alert and oriented X 3, Well developed/nourished, Other (coughing paraoxysms with deep breathing) - HEENT HEENT: Atraumatic, PERRL, EOMI, Ears normal, Other (dry mucous membranes ) - Neck Neck: Supple, no meningeal sign, No bony TTP - Cardiac Cardiac: No murmur, Other (tachy to 100) - Respiratory Respiratory: Other (Tachypneic at rest and coughing paroxysms occur with deep breathing. No focal rhonchi.) - Abdomen Abdomen: Soft, Non tender - Back Back: No CVA TTP, No spinal TTP - Derm Derm: Normal color, Warm and dry, No rash - Extremities Extremities: No deformity, No edema - Neuro Neuro: Alert and oriented X 3, asset management coordinator 2-12 intact, No motor deficit, No sensory deficit, Normal speech Eye Opening: Spontaneous Motor: Obeys Commands Verbal: Oriented GCS Score: 15 - Psych Psych: Normal mood, Normal affect Results - Vitals Vitals: Vital Signs - 24 hr 12/14/21 15:01 Temperature 37.3 C Heart Rate 122 H Respiratory 24 Rate Blood Pressure 126/98 H O2 Saturation 98 Oxygen O2 Source Room air - Rads (name of study) chest Radiology: Prelim report reviewed (Impression: Chest plain film series within normal limits.), EMP read indepedently, See rad report Departure - Departure Disposition: Home, Self Care Clinical Impression: Asthmatic bronchitis with acute exacerbation Qualifiers: Asthma severity: mild Asthma persistence: intermittent Qualified Code(s): J45.21 - Mild intermittent asthma with (acute) exacerbation Condition: Stable Instructions: ED Bronchitis Asthmatic, ED Viral Syndrome Follow-Up: Bailey Leahy DO [Primary Care Provider] - Prescriptions: Albuterol Sulf [Ventolin Hfa Inhaler] 1 - 2 puffs INH Q4HR PRN #1 inhaler PRN Reason: Shortness Of Air/Wheezing predniSONE [Deltasone] 40 mg PO DAILY 5 Days #10 tablet Benzonatate [Tessalon] 100 - 200 mg PO TID PRN #30 cap PRN Reason: Cough Comments: Crystal today it looks like you have asthmatic bronchitis likely related to your allergies and I have prescribed some prednisone for you. The prednisone will cause a rise in your blood sugars and you will need to use additional insulin to combat this. Whatever you do, try to keep your blood sugar under 200, as this can cause significant dehydration. I have E scribed the prednisone as well as an inhaler and a cough suppressant to [facility] in [place]. Our expectation is improvement with the use of these medications. If you have worsening of symptoms develop a fever a review for pneumonia is in order.
--- NOTE | 2021-12-14 15:38 | XRAY Report ---
PROCEDURE: Chest 2 View X-Ray INDICATIONS: cough TECHNIQUE: 2 view(s) of the chest. COMPARISON: 10/12/2021, 12/09/2020 FINDINGS: Surgical changes and devices: None. Lungs and pleura: An incomplete inspiratory result is noted, with low lung volumes and crowding of t he vascular markings. No focal infiltrates are seen. No large pneumothorax or large pleural effusion can be seen. Mediastinum: Mediastinal contours are normal. Heart size is normal. Bones and chest wall: No suspicious bony abnormalities. Soft tissues appear unremarkable. IMPRESSION: Chest plain film series within normal limits. Reviewed by: Casey Juarez MD on 12/14/2021 2:37 PM [facility] Approved by: Casey Juarez MD on 12/14/2021 2:37 PM [facility] Station ID: [id number]
[2021-12-14 16:00] VITALS: BP 137/92
== END 2021-12-14 15:59 | disposition home or self-care (01) ==
LOC: EDUNIT# → ED 14:55
DX: J45.21 Mild intermittent asthma with (acute) exacerbation (principal); E11.9 Type 2 diabetes mellitus without complications; Z79.4 Long term (current) use of insulin
CPT/HCPCS: 99283; 99284

== ENCOUNTER 2022-01-14 10:12 | Outpatient (CLI) | payer MEDICAID ==
[2022-01-14 11:57] LABS: BASOPHILS # (AUTO) 0.1 10^3/uL (0.0-0.1); BASOPHILS % (AUTO) 1.2 %; EOSINOPHILS # (AUTO) 0.3 10^3/uL (0.0-0.7); EOSINOPHILS % (AUTO) 4.3 %; HCT - HEMATOCRIT 45.1 % (37.0-47.0); HGB - HEMOGLOBIN 15.3 g/dL (12.0-16.0); LYMPHOCYTES # (AUTO) 2.8 10^3/uL (1.5-3.5); LYMPHOCYTES % (AUTO) 47.9 %; MEAN CORPUSCULAR HEMOGLOBIN 30.8 pg (27.0-31.0); MEAN CORPUSCULAR HGB CONC 33.9 g/dL (32.0-36.0); MEAN CORPUSCULAR VOLUME 90.7 fL (81.0-99.0); MEAN PLATELET VOLUME 9.6 fL (7.9-10.8); MONOCYTES # (AUTO) 0.5 10^3/uL (0.0-1.0); MONOCYTES % (AUTO) 9.2 %; NEUTROPHILS # (AUTO) 2.2 10^3/uL (1.5-6.6); NEUTROPHILS % (AUTO) 37.2 %; PLT - PLATELET COUNT 335 10^3/uL (130-450); RED BLOOD COUNT 4.97 10^6/uL (4.20-5.40); RED CELL DISTRIBUTION WIDTH 12.6 % (12.0-15.0); WHITE BLOOD COUNT 5.9 x10^3/uL (4.8-10.8)
[2022-01-14 12:18] LABS: ALBUMIN 4.1 g/dL (3.2-5.5); ALKALINE PHOSPHATASE 46 IU/L (42-121); ALT ALANINE AMINOTRANSFERASE 28 IU/L (10-60); AST ASPARTATE AMINOTRANSFERASE 19 IU/L (10-42); BILIRUBIN,TOTAL 0.5 mg/dL (0.2-1.0); BUN - BLOOD UREA NITROGEN 13 mg/dL (6-20); CALCIUM 9.6 mg/dL (8.5-10.3); CARBON DIOXIDE - CO2 28 mmol/L (21-32); CHLORIDE 94 mmol/L (101-111); CHOL/HDL RATIO 5.5 (<4.4); CHOLESTEROL 225 mg/dL; CREATININE 0.9 mg/dL (0.4-1.0); GFR - MDRD 66 (>89); GLUCOSE 320 mg/dL (70-100); HDL CHOLESTEROL 41 mg/dL; LDL CHOLESTEROL,CALCULATED 117 mg/dL; LDL/HDL RATIO 2.9 (<4.4); POTASSIUM 4.2 mmol/L (3.5-5.0); SODIUM 134 mmol/L (135-145); TOTAL PROTEIN 8.3 g/dL (6.7-8.2); TRIGLYCERIDES 334 mg/dL; VLDL CHOLESTEROL 67 mg/dL
[2022-01-14 12:21] LABS: THYROID STIMULATING HORMONE 2.98 uIU/mL (0.34-5.60)
[2022-01-14 12:25] LABS: ESTIMATED AVERAGE GLUCOSE 280 mg/dL (70-100); HEMOGLOBIN A1c% 11.4 % (4.27-6.07)
== END 2022-01-14 10:13 | disposition home or self-care (01) ==
LOC: LAB.N 10:12
PROVIDERS: ATTEND Physician Assistant
DX: E11.65 Type 2 diabetes mellitus with hyperglycemia (principal); E78.1 Pure hyperglyceridemia; Z13.29 Encounter for screening for other suspected endocrine disorder; I10 Essential (primary) hypertension
CPT/HCPCS: 36415; 80053; 80061; 83036; 83721; 84443; 85025

== ENCOUNTER 2022-01-27 13:43 | Outpatient (CLI) | payer MEDICAID ==
--- NOTE | 2022-02-11 08:18 | Mammography Report ---
BILATERAL DIGITAL SCREENING MAMMOGRAM 3D/2D: 01/27/2022 CLINICAL: Routine screening. No prior exams were available for comparison. The tissue of both breasts is predominantly fatty. There are benign vascular calcifications in the right breast. No significant masses, calcifications, or other findings are seen in either breast. IMPRESSION: BENIGN There is no mammographic evidence of malignancy. A 1 year screening mammogram is recommended. Based on the Tyrer Cuzick model (a risk assessment model) the patients lifetime risk is 5.9% and her 10 year risk is 1.4%. According to the ACR, ACS, and NCCN guidelines, an annual breast MRI exam dayanara g with mammogram is recommended if the patients lifetime risk is 20% or greater. This exam was interpreted at Station ID: [id number]. NOTE: For mammograms, a report in lay terms will be sent to the patient. Approximately 15% of breast malignancies will not be visualized mammographically. In the management of a palpable breast mass, a negative mammogram must not discourage biopsy of a clinically suspicious lesion. Electronically Signed By: Subha leigh/mikie:02/10/2022 09:02:38 ACR BI-RADS Category 2: Benign Finding(s) 3342F PARENCHYMAL PATTERN: (F) - The breast(s) demonstrate(s) diffuse fatty replacement. BI-RADS CATEGORY: (2) - 2 RECOMMENDATION: (ANNUAL) - Recommend routine annual screening mammography. [id number] 1 year screening LATERALITY: (B)
== END 2022-01-27 13:44 | disposition home or self-care (01) ==
LOC: DI.N 13:43
PROVIDERS: ATTEND Physician Assistant
DX: Z12.31 Encounter for screening mammogram for malignant neoplasm of breast (principal)

== ENCOUNTER 2022-08-22 16:50 | Emergency (ER) | payer MEDICAID ==
[2022-08-22 17:09] VITALS: BP 180/104
--- NOTE | 2022-08-22 17:39 | ED Physician Documentation ---
PD ROSARIO HEENT - Stated complaint Stated Complaint: RT EYE SWELLING - Chief complaint Chief Complaint: Heent - History obtained from History obtained from: Patient - History of Present Illness Timing - onset: How many days ago (several days) Timing - duration: Days (3) Timing - details: Gradual onset, Still present (she had swelling locally of lower right eyelid that did open and drain purulence, and she thought it would then improve. but has had increasing redness and swelling of whole lower lid to upper cheek.) Location: Other (lower eyelid right side.) Associated symptoms: No: Fever Similar symptoms before: Has not had sx before Review of Systems Eyes: reports: Other (right lower eyelid with local swelling without fluctuance nor firmness. there is diffuse redness with swelling of the lower lid to upper cheek.). denies: Loss of vision, Decreased vision, Photophobia PD PAST MEDICAL HISTORY - Past Medical History Cardiovascular: Hypertension Respiratory: None Neuro: Migraines Endocrine/Autoimmune: Type 2 diabetes GI: Pancreatitis, Cholelithiasis BACKPACKERS MANAGER: None : None HEENT: Chronic vision loss Psych: Depression, Anxiety Musculoskeletal: None - Past Surgical History Past Surgical History: Yes General: Cholecystectomy Ortho: Knee replacement /BACKPACKERS MANAGER: Tubal ligation, Hysterectomy, Oophrectomy, Breast reduction HEENT: Cataracts - Present Medications Home Medications: Ambulatory Orders Medication Instructions Recorded Confirmed Insulin Glargine [Lantus Solostar] 40 units SQ HS 11/03/20 08/31/21 Lisinopril [Zestril] 10 mg PO DAILY 11/03/20 08/31/21 Insulin Aspart [NovoLOG] 15 units SQ TID 11/08/20 02/09/21 Dicyclomine [Bentyl] 1 - 2 tab PO QID PRN #20 cap 03/28/21 08/31/21 HYDROcod/ACETAM 5/325 [[place] 5/325] 1 - 2 tab PO Q6H PRN #15 tablet 03/28/21 08/31/21 Ondansetron Odt [Zofran] 4 mg TL Q6H PRN #10 tablet 08/10/21 08/31/21 Fluoxetine HCl [Prozac] 20 mg PO DAILY 08/31/21 08/31/21 LORazepam [Ativan] 1 mg PO BID PRN 08/31/21 08/31/21 Metoprolol Succinate [Toprol Xl] 25 mg PO DAILY PM 08/31/21 08/31/21 Promethazine Supp [Phenergan Supp] 25 mg [place] Q8HR #30 supp 08/31/21 diphenhydrAMINE [Benadryl] 25 - 50 mg PO Q6HR PRN 08/31/21 08/31/21 Albuterol Sulf [Ventolin Hfa 1 - 2 puffs INH Q4HR PRN #1 inhaler 12/14/21 Inhaler] Benzonatate [Tessalon] 100 - 200 mg PO TID PRN #30 cap 12/14/21 Loratadine [Claritin] 10 mg PO ONCE 12/14/21 12/14/21 predniSONE [Deltasone] 40 mg PO DAILY 5 Days #10 tablet 12/14/21 Erythromycin Base [Erythromycin 1 applic OP QID #3.5 gm 08/22/22 Ophthalmic Ointment] Ibuprofen [Motrin] 600 mg PO TID PRN #25 tab 08/22/22 Sulfamethox/Trimeth 800/160 1 each PO BID #14 tablet 08/22/22 [Bactrim Ds 800/160] - Allergies Allergies/Adverse Reactions: Allergies Allergy/AdvReac Type Severity Reaction Status Date / Time haloperidol Allergy Hallucinati Verified 12/14/21 15:00 ons metoclopramide [From Reglan] AdvReac Rash Verified 12/14/21 15:00 - Social History Does the pt smoke?: No Smoking Status: Never smoker Does the pt drink ETOH?: No Does the pt have substance abuse?: No - Immunizations Immunizations are current?: Yes - POLST Patient has POLST: No PD ED PE NORMAL - Vitals Vital signs reviewed: Yes - General General: Alert and oriented X 3, Well developed/nourished - HEENT HEENT: PERRL, EOMI, Other (right lower eyelid with local swelling without fluctuance nor firmness. there is diffuse redness with swelling of the lower lid to upper cheek.) Results - Vitals Vitals: Vital Signs - 24 hr 08/22/22 17:07 Temperature 36.7 C Heart Rate 90 Respiratory 16 Rate Blood Pressure 180/104 H O2 Saturation 99 Oxygen O2 Source Room air PD Medical Decision Making - ED course Complexity details: considered differential (symptoms c/w stye infected that opened but has still eyelid cellulitis. No symptoms to suggest orbital cellulitis (no pain on EOMs, no proptosis, no blurred vision).), d/w patient Drug Therapy Requiring Monitoring for Toxicity: The patient does take lisinopril for blood pressure. Her most recent creatinine was 0.9 in January. No history of renal failure per se. I therefore felt comfortable prescribing Bactrim antibiotic for her for a limited time as a most likely to think of staph as a cause for the eyelid abscess/cellulitis. Departure - Departure Disposition: Home, Self Care Clinical Impression: Cellulitis of right lower eyelid Condition: Stable Record reviewed to determine appropriate education?: Yes Instructions: ED Cellulitis Facial Follow-Up: Anel David PA [Primary Care Provider] - Prescriptions: Sulfamethox/Trimeth 800/160 [Bactrim Ds 800/160] 1 each PO BID #14 tablet Erythromycin Base [Erythromycin Ophthalmic Ointment] 1 applic OP QID #3.5 gm Ibuprofen [Motrin] 600 mg PO TID PRN #25 tab PRN Reason: Pain Comments: Warm moist towels to the eyelid area to help promote blood flow and loosening of the material to promote better drainage. Does not feel like there is a lot of fluid still collected in the area but more swelling and edema of the eyelid from the infection. I would anticipate improvement into tomorrow and resolution within 3 to 5 days with a combination of the oral antibiotic Bactrim and a topical erythromycin ointment to the eyelid. Use ibuprofen 3 times daily with food for the next several days to help with pain. Add Tylenol if needed. On recheck if not improving well over the next several days. I sent your prescription to [facility] pharmacy. Discharge Date/Time: 08/22/22 18:08
[2022-08-22] MEDS ORDERED: SULFAMETH/TRIMETH DS 800/160 MG TABLET PO STA (17:52)
[2022-08-22] MEDS ORDERED: ERYTHROMYCIN OPHTH OINT 1 GM TUBE RIGHTEYE STA (17:52)
[2022-08-22] MEDS ORDERED: ACETAMINOPHEN 325 MG TABLET PO STA (17:52)
[2022-08-22] MEDS ORDERED: KETOROLAC 30 MG/ML VIAL IM STA (17:52)
== END 2022-08-22 18:08 | disposition home or self-care (01) ==
LOC: ED 16:50
DX: H00.032 Abscess of right lower eyelid (principal); I10 Essential (primary) hypertension; E11.9 Type 2 diabetes mellitus without complications; Z79.4 Long term (current) use of insulin
CPT/HCPCS: 96372; 99283; 99284; A9270; J3490

== ENCOUNTER 2022-08-24 18:57 | Emergency (ER) | payer MEDICAID ==
[2022-08-24] MEDS ORDERED: ONDANSETRON 4 MG/2 ML VIAL IVP STA (20:43)
[2022-08-24] MEDS ORDERED: SODIUM CHLORIDE 0.9% 1,000 ML IV STA (20:44)
[2022-08-24] MEDS ORDERED: HYDROmorphone 0.5 MG/0.5 ML SYRINGE IVP STA (20:44)
--- NOTE | 2022-08-24 20:46 | ED Physician Documentation ---
History of Present Illness - Stated complaint Stated Complaint: NAUSEA,JAW PX - Chief complaint Chief Complaint: Abd Pain - History obtained from History obtained from: Patient, Family - Additonal information Additional information: The patient comes to the emergency department with chief complaint of pain in her right face and nausea after starting antibiotics for a stye a couple of days ago. She states that the stye is in her right lower eyelid and that seems to be redder and more swollen than it was. She states that that is not really was bothering her so much, as with the hot packing, she is able to get the stye to drain. She states mainly, she was concerned about the nausea and wondered if she should keep taking her antibiotics, and also, she feels the ibuprofen is not working for her pain. The patient denies fevers or chills. She denies any swelling outside of her eyelid. She is established with ophthalmology in [place] and believes she has seen Dr. Meneses before for her surgeries. No other complaints at this time. Review of Systems Constitutional: reports: Reviewed and negative Eyes: reports: Reviewed and negative Ears: reports: Reviewed and negative Nose: reports: Reviewed and negative Throat: reports: Reviewed and negative Cardiac: reports: Reviewed and negative Respiratory: reports: Reviewed and negative GI: reports: Reviewed and negative : reports: Reviewed and negative Skin: reports: Reviewed and negative Musculoskeletal: reports: Reviewed and negative Neurologic: reports: Reviewed and negative Psychiatric: reports: Reviewed and negative Endocrine: reports: Reviewed and negative Immunocompromised: reports: Reviewed and negative PD PAST MEDICAL HISTORY - Past Medical History Past Medical History: Yes Cardiovascular: Hypertension Respiratory: None Neuro: Migraines Endocrine/Autoimmune: Type 2 diabetes GI: Pancreatitis, Cholelithiasis 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 HEENT: Chronic vision loss Psych: Depression, Anxiety Musculoskeletal: None - Past Surgical History Past Surgical History: Yes General: Cholecystectomy Ortho: Knee replacement /LIFE SCIENCE TEACHER: Tubal ligation, Hysterectomy, Oophrectomy, Breast reduction HEENT: Cataracts - Present Medications Home Medications: Ambulatory Orders Medication Instructions Recorded Confirmed Insulin Glargine [Lantus Solostar] 40 units SQ HS 11/03/20 08/31/21 Lisinopril [Zestril] 10 mg PO DAILY 11/03/20 08/31/21 Insulin Aspart [NovoLOG] 15 units SQ TID 11/08/20 02/09/21 Dicyclomine [Bentyl] 1 - 2 tab PO QID PRN #20 cap 03/28/21 08/31/21 HYDROcod/ACETAM 5/325 [[place] 5/325] 1 - 2 tab PO Q6H PRN #15 tablet 03/28/21 08/31/21 Ondansetron Odt [Zofran] 4 mg TL Q6H PRN #10 tablet 08/10/21 08/31/21 Fluoxetine HCl [Prozac] 20 mg PO DAILY 08/31/21 08/31/21 LORazepam [Ativan] 1 mg PO BID PRN 08/31/21 08/31/21 Metoprolol Succinate [Toprol Xl] 25 mg PO DAILY PM 08/31/21 08/31/21 Promethazine Supp [Phenergan Supp] 25 mg NM Q8HR #30 supp 08/31/21 diphenhydrAMINE [Benadryl] 25 - 50 mg PO Q6HR PRN 08/31/21 08/31/21 Albuterol Sulf [Ventolin Hfa 1 - 2 puffs INH Q4HR PRN #1 inhaler 12/14/21 Inhaler] Benzonatate [Tessalon] 100 - 200 mg PO TID PRN #30 cap 12/14/21 Loratadine [Claritin] 10 mg PO ONCE 12/14/21 12/14/21 predniSONE [Deltasone] 40 mg PO DAILY 5 Days #10 tablet 12/14/21 Erythromycin Base [Erythromycin 1 applic OP QID #3.5 gm 08/22/22 Ophthalmic Ointment] Ibuprofen [Motrin] 600 mg PO TID PRN #25 tab 08/22/22 Sulfamethox/Trimeth 800/160 1 each PO BID #14 tablet 08/22/22 [Bactrim Ds 800/160] HYDROcod/ACETAM 5/325 [[place] 5/325] 1 - 2 tablet PO Q6H PRN #14 tablet 08/24/22 Ondansetron Odt [Zofran] 4 mg TL Q6H PRN #10 tablet 08/24/22 - Allergies Allergies/Adverse Reactions: Allergies Allergy/AdvReac Type Severity Reaction Status Date / Time haloperidol Allergy Hallucinati Verified 08/24/22 19:11 ons metoclopramide [From Reglan] AdvReac Rash Verified 08/24/22 19:11 - Social History Does the pt smoke?: No Smoking Status: Never smoker Does the pt drink ETOH?: No Does the pt have substance abuse?: No - Immunizations Immunizations are current?: Yes - POLST Patient has POLST: No PD ED PE NORMAL - Vitals Vital signs reviewed: Yes - General General: Alert and oriented X 3, No acute distress, Well developed/nourished - HEENT HEENT: Atraumatic, PERRL, EOMI, Moist mucous membranes, Other (Right lower eyelid is enlarged and indurated, but not fluctuant. Erythema corresponds to the area of induration which is approximately 1 cm vertically by 2.5 cm horizontally. Dry scab noted medially along the tarsal plate. Eye exam otherwise normal.) - Respiratory Respiratory: No respiratory distress - Derm Derm: Normal color, Warm and dry, No rash - Extremities Extremities: No deformity, No edema - Neuro Neuro: Alert and oriented X 3 - Psych Psych: Normal mood, Normal affect Results - Vitals Vitals: Vital Signs - 24 hr 08/24/22 08/24/22 08/24/22 19:06 21:03 22:15 Temperature 36.2 C L Heart Rate 96 95 98 Respiratory 18 18 18 Rate Blood Pressure 148/104 H 159/103 H 167/105 H O2 Saturation 100 97 95 Oxygen O2 Source Room air - Rads (name of study) Soft tissue ultrasound right lower eyelid Radiology: Final report received, See rad report (Soft tissue swelling without distinct fluid collection.) PD Medical Decision Making - ED course Complexity details: reviewed results, re-evaluated patient, considered differential, d/w patient, d/w family ED course: I ordered an ultrasound of the patient's lower eyelid and treated her symptomatically with IV fluids, Zofran, and Dilaudid. The ultrasound showed soft tissue edema and findings consistent with a stye, but no distinct, drainable fluid collection. I discussed the findings with the patient and her . Discussed with her that I feel that at this time, the best course of action is to continue the antibiotics, both topically and orally, as well as the hot compresses several times a day. The patient is established with ophthalmology already and should schedule a follow-up appointment. I have prescribed some pain and nausea medicine for her to help with symptoms. We have discussed to the usual indications for return. Departure - Departure Disposition: 01 Home, Self Care Clinical Impression: Hordeolum externum (stye) Qualifiers: Laterality: right Eyelid: lower Qualified Code(s): H00.012 - Hordeolum externum right lower eyelid Cellulitis Qualifiers: Site of cellulitis: face Qualified Code(s): L03.211 - Cellulitis of face Condition: Stable Instructions: ED Hordeolum Prescriptions: HYDROcod/ACETAM 5/325 [[place] 5/325] 1 - 2 tablet PO Q6H PRN #14 tablet PRN Reason: Pain Ondansetron Odt [Zofran] 4 mg TL Q6H PRN #10 tablet PRN Reason: Nausea / Vomiting Comments: The ultrasound of your eyelid does not show a distinct pus pocket. The firm red area appears to just be inflammation from the clogged duct which is causing the stye, but there is no distinct pus pocket to cut open or drained with a needle. At this point in time, you should continue the recommended treatment from your visit a couple of days ago, which is to take the antibiotics twice daily every day and to continue hot packing several times a day. It often takes does some weeks to resolve, and so you will need to discontinue the process until things begin to improve. Please call and make a follow-up appointment with your floor and wall applier liquid for a recheck, just in case you do not see any improvement in the next couple of weeks. If you begin to develop redness and swelling spreading down your face, along with fever, you should be rechecked without delay. At this point in time, we have given you prepacks of both pain and nausea medicine here in the emergency department, and prescriptions for the same have been electronically transmitted To [facility] pharmacy in [place], your pharmacy of choice on record Discharge Date/Time: 08/24/22 22:23
[2022-08-24] MEDS ORDERED: HYDROcod/ACET 5/325 Prepack 4 PO STA (21:40)
[2022-08-24] MEDS ORDERED: ONDANSETRON ODT 4 MG Prepack 2 TL PRN (21:40)
[2022-08-24 22:16] VITALS: BP 167/105
--- NOTE | 2022-08-24 22:41 | Ultrasound Report ---
PROCEDURE: Head or Neck Soft Tissue INDICATIONS: R lower eyelid red/swollen, ?abscess TECHNIQUE: Real time scanning was performed of the region of interest, with image documentation. COMPARISON: None. FINDINGS: Ultrasound evaluation of the right lower eyelid demonstrates an ill-defined hypoechoic soft tissue re gion measuring approximately 2.8 x 0.9 x 1.4 cm with increased internal vascularity on color Doppler interrogation. IMPRESSION: 1. Hypoechoic and hyperemic area of soft tissue demonstrated suggestive of a phlegmon or stye. No dis crete drainable abscess collection. Reviewed by: Clifton Hahn MD on 08/24/2022 10:40 PM PST Approved by: Clifton Hahn MD on 08/24/2022 10:40 PM PST Station ID: [id number]
== END 2022-08-24 22:23 | disposition home or self-care (01) ==
LOC: ED 18:57
DX: H00.012 Hordeolum externum right lower eyelid (principal); L03.211 Cellulitis of face; I10 Essential (primary) hypertension; E11.9 Type 2 diabetes mellitus without complications; Z79.4 Long term (current) use of insulin
CPT/HCPCS: 36415; 76536; 96374; 99284; J1170

== ENCOUNTER 2022-10-06 05:01 | Emergency (ER) | payer MEDICAID ==
[2022-10-06 05:14] VITALS: BP 151/110
--- NOTE | 2022-10-06 05:23 | ED Physician Documentation ---
PD HPI FEMALE - Stated complaint Stated Complaint: FEMALE - Chief complaint Chief Complaint: Allergic Rx - History obtained from History obtained from: Patient - History of Present Illness Timing - onset: How many days ago (7) Timing - duration: Days (7) Timing - details: Gradual onset (she has had some vaginal and perineal itching and redness for a week, that has persisted despite vagisil and dermaplast topical cream. Now with a day of speckled bumps in area and lower abdomen.) Associated symptoms: Vaginal discharge (mild), Genital sore/lesion (redness with itching, and now bumps.). 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 HEENT: Chronic vision loss Psych: Depression, Anxiety Musculoskeletal: None - Past Surgical History Past Surgical History: Yes General: Cholecystectomy Ortho: Knee replacement /ANALYTICAL TECHNICIAN: Tubal ligation, Hysterectomy, Oophrectomy, Breast reduction HEENT: Cataracts - Present Medications Home Medications: Ambulatory Orders Medication Instructions Recorded Confirmed Insulin Glargine [Lantus Solostar] 40 units SQ HS 11/03/20 08/31/21 Lisinopril [Zestril] 10 mg PO DAILY 11/03/20 08/31/21 Insulin Aspart [NovoLOG] 15 units SQ TID 11/08/20 02/09/21 Dicyclomine [Bentyl] 1 - 2 tab PO QID PRN #20 cap 03/28/21 10/06/22 Ondansetron Odt [Zofran] 4 mg TL Q6H PRN #10 tablet 08/10/21 10/06/22 Fluoxetine HCl [Prozac] 20 mg PO DAILY 08/31/21 08/31/21 LORazepam [Ativan] 1 mg PO BID PRN 08/31/21 08/31/21 Metoprolol Succinate [Toprol Xl] 25 mg PO DAILY PM 08/31/21 10/06/22 Promethazine Supp [Phenergan Supp] 25 mg [place] Q8HR #30 supp 08/31/21 10/06/22 diphenhydrAMINE [Benadryl] 25 - 50 mg PO Q6HR PRN 08/31/21 10/06/22 Albuterol Sulf [Ventolin Hfa 1 - 2 puffs INH Q4HR PRN #1 inhaler 12/14/21 10/06/22 Inhaler] Benzonatate [Tessalon] 100 - 200 mg PO TID PRN #30 cap 12/14/21 10/06/22 Loratadine [Claritin] 10 mg PO ONCE 12/14/21 10/06/22 Ibuprofen [Motrin] 600 mg PO TID PRN #25 tab 08/22/22 HYDROcod/ACETAM 5/325 [[place] 5/325] 1 - 2 tablet PO Q6H PRN #14 tablet 08/24/22 Clotrimazole/Betamethasone Crm 1 applic TOP BID #45 ml 10/06/22 [Lotrisone Cream] Doxycycline Hyclate 100 mg PO BID 7 Days #14 cap 10/06/22 Fluconazole [Diflucan] 150 mg PO Q3D #2 tablet 10/06/22 - Allergies Allergies/Adverse Reactions: Allergies Allergy/AdvReac Type Severity Reaction Status Date / Time haloperidol Allergy Hallucinati Verified 10/06/22 05:36 ons metoclopramide [From Reglan] AdvReac Rash Verified 10/06/22 05:36 - Social History Does the pt smoke?: No Smoking Status: Never smoker Does the pt drink ETOH?: No Does the pt have substance abuse?: No - Immunizations Immunizations are current?: Yes - POLST Patient has POLST: No PD ED PE NORMAL - Vitals Vital signs reviewed: Yes - General General: Alert and oriented X 3, No acute distress, Well developed/nourished - Female Female : Pharmacy Scheduler present, Other (external (nonspeculum) exam shows uniform redness with mild whitish discharge in inner labial and outer labial folds. on the perineal and pubis area are discrete multiple small pustules c/w folliciult iis. ) - Derm Derm: Normal color, Warm and dry Results - Vitals Vitals: Oxygen O2 Source Room air - Labs Labs: Microbiology 10/06/22 05:40 Wound Culture - Preliminary Skin - Abdominal YEAST PD Medical Decision Making - ED course Complexity details: considered differential (seems likely yeast infection with that appearance at labia. speculum exam not done. there is also appearance of secondary folliculitis in pubis area. ), d/w patient Departure - Departure Disposition: 01 Home, Self Care Clinical Impression: Perineal rash in female, Vulvovaginitis due to yeast, Superficial folliculitis due to bacteria Condition: Stable Record reviewed to determine appropriate education?: Yes Prescriptions: Fluconazole [Diflucan] 150 mg PO Q3D #2 tablet Doxycycline Hyclate 100 mg PO BID 7 Days #14 cap Clotrimazole/Betamethasone Crm [Lotrisone Cream] 1 applic TOP BID #45 ml Comments: There does appear to be a uniform redness tenderness in the inguinal creases in the labial area which I think is more likely to be yeast although could be just a contact/chemical dermatitis from detergent or soap. Due to the possibility of either or both, I would have to use a combination of an antifungal with steroid cream twice daily to the main areas that are involved with the itching and redness. There is also a speckled pustular rash on the pubis and perineal area that looks like a bacterial folliculitis. We can go with an oral antibiotic to help with this. You do not need to place the antifungal/steroid cream in that area as that portion is not yeast related. We can also go with an ENT fungal oral medication every 3 days for 2 more doses (Diflucan). I wrote prescriptions for these medications. You can do a long-acting antihistamine such as cetirizine once or twice daily to help with itching. Add Benadryl if needed. I sent the prescriptions to [facility] pharmacy in [place]. We did do a culture from some of the pustules. This will result in a couple of days and we will call you if we need to change antibiotics based on the results of that. Discharge Date/Time: 10/06/22 06:06
[2022-10-06] MEDS ORDERED: FLUCONAZOLE 100 MG TABLET PO STA (05:48)
[2022-10-06] MEDS ORDERED: DOXYCYCLINE 100 MG TABLET PO STA (05:49)
[2022-10-06] MEDS ORDERED: CETIRIZINE 10 MG TABLET PO STA (05:50)
--- NOTE | 2022-10-09 13:27 | ED Physician Documentation ---
ED Addendum - Addendum Addendum: 10/09/22 13:26 The culture obtained from the abdomen/pubic area from the recent visit grew out yeast which had been apparent clinically and also grew out Enterococcus faecalis that was resistant to tetracycline. She had been prescribed doxycycline. It is sensitive to ciprofloxacin. I will switch her to Cipro 500 mg twice daily for 5 days to clear the folliculitis's. I sent this to her preferred pharmacy. Nursing staff will call and contact her about the change.
== END 2022-10-06 06:06 | disposition home or self-care (01) ==
LOC: ED 05:01
DX: B37.31 Acute candidiasis of vulva and vagina (principal); L73.8 Other specified follicular disorders; R21 Rash and other nonspecific skin eruption; I10 Essential (primary) hypertension; E11.9 Type 2 diabetes mellitus without complications; Z79.4 Long term (current) use of insulin; Z79.51 Long term (current) use of inhaled steroids; Z79.899 Other long term (current) drug therapy
CPT/HCPCS: 87070; 87205; 99283; A9270; 87077; 87181

== ENCOUNTER 2022-10-28 02:29 | Emergency (ER) | payer MEDICAID ==
--- NOTE | 2022-10-28 02:42 | ED Physician Documentation ---
PD HPI NVD - Stated complaint Stated Complaint: VOMITING/DIZZINESS - Chief complaint Chief Complaint: Abd Pain - History obtained from History obtained from: Patient - Additonal information Additional information: HPI from patient. Patient c/o nausea, vomiting, and abdominal pain since approximately 9 PM tonight. She has had many similar previous such episodes , thought to be related to pancreatitis. She denies fever. She has upcoming appointment with PMD this Thursday. She took zofran tonight without adequate relief of n/v (this was her last dose of zofran). Review of Systems Constitutional: denies: Fever, Chills, Sweats Cardiac: reports: Reviewed and negative Respiratory: reports: Reviewed and negative GI: reports: Abdominal Pain, Nausea, Vomiting. denies: Abdominal Swelling, Constipation, Diarrhea, Hematemesis, Bloody / black stool PD PAST MEDICAL HISTORY - Past Medical History Cardiovascular: Hypertension Respiratory: None Neuro: Migraines Endocrine/Autoimmune: Type 2 diabetes GI: Pancreatitis, Cholelithiasis SHOVELER: None : None HEENT: Chronic vision loss Psych: Depression, Anxiety Musculoskeletal: None - Past Surgical History Past Surgical History: Yes General: Cholecystectomy Ortho: Knee replacement /SHOVELER: Tubal ligation, Hysterectomy, Oophrectomy, Breast reduction HEENT: Cataracts - Present Medications Home Medications: Ambulatory Orders Medication Instructions Recorded Confirmed Insulin Glargine [Lantus Solostar] 40 units SQ HS 11/03/20 08/31/21 Lisinopril [Zestril] 10 mg PO DAILY 11/03/20 08/31/21 Insulin Aspart [NovoLOG] 15 units SQ TID 11/08/20 02/09/21 Dicyclomine [Bentyl] 1 - 2 tab PO QID PRN #20 cap 03/28/21 10/06/22 Ondansetron Odt [Zofran] 4 mg TL Q6H PRN #10 tablet 08/10/21 10/06/22 Fluoxetine HCl [Prozac] 20 mg PO DAILY 08/31/21 08/31/21 LORazepam [Ativan] 1 mg PO BID PRN 08/31/21 08/31/21 Metoprolol Succinate [Toprol Xl] 25 mg PO DAILY PM 08/31/21 10/06/22 Promethazine Supp [Phenergan Supp] 25 mg [place] Q8HR #30 supp 08/31/21 10/06/22 diphenhydrAMINE [Benadryl] 25 - 50 mg PO Q6HR PRN 08/31/21 10/06/22 Albuterol Sulf [Ventolin Hfa 1 - 2 puffs INH Q4HR PRN #1 inhaler 12/14/21 10/06/22 Inhaler] Benzonatate [Tessalon] 100 - 200 mg PO TID PRN #30 cap 12/14/21 10/06/22 Loratadine [Claritin] 10 mg PO ONCE 12/14/21 10/06/22 Ibuprofen [Motrin] 600 mg PO TID PRN #25 tab 08/22/22 HYDROcod/ACETAM 5/325 [[place] 5/325] 1 - 2 tablet PO Q6H PRN #14 tablet 08/24/22 Clotrimazole/Betamethasone Crm 1 applic TOP BID #45 ml 10/06/22 [Lotrisone Cream] Doxycycline Hyclate 100 mg PO BID 7 Days #14 cap 10/06/22 Fluconazole [Diflucan] 150 mg PO Q3D #2 tablet 10/06/22 Ciprofloxacin HCl [Cipro] 500 mg PO BID 5 Days #10 tablet 10/09/22 Dicyclomine [Bentyl] 10 mg PO QID PRN #20 cap 10/28/22 Ondansetron Odt [Zofran] 4 mg TL Q6H PRN #14 tablet 10/28/22 Promethazine [Phenergan] 25 mg PO Q6H PRN #10 tab 10/28/22 - Allergies Allergies/Adverse Reactions: Allergies Allergy/AdvReac Type Severity Reaction Status Date / Time haloperidol Allergy Hallucinati Verified 10/28/22 02:36 ons metoclopramide [From Reglan] AdvReac Rash Verified 10/28/22 02:36 - Social History Does the pt smoke?: No Smoking Status: Never smoker Does the pt drink ETOH?: No Does the pt have substance abuse?: No - Immunizations Immunizations are current?: Yes - POLST Patient has POLST: No PD ED PE NORMAL - Vitals Vital signs reviewed: Yes - General General: Alert and oriented X 3, No acute distress, Well developed/nourished - Cardiac Cardiac: No murmur - Respiratory Respiratory: No respiratory distress, Clear bilaterally - Abdomen Abdomen: Normal bowel sounds, Soft, Non distended, Other (mild TTP across upper abdomen without rebound or guarding) PD ED PE EXPANDED - Cardiac Cardiac: Tachy, Regular Rhythm Results - Vitals Vitals: Oxygen O2 Source Room air - Labs Labs: Laboratory Tests 10/28/22 10/28/22 10/28/22 02:46 02:46 02:46 WBC 12.8 H RBC 4.99 Hgb 14.7 Hct 44.4 MCV 89.0 MCH 29.5 MCHC 33.1 RDW 12.7 Plt Count 351 MPV 9.0 Neut # (Auto) 9.0 H Lymph # (Auto) 2.4 Colbert # (Auto) 1.0 Eos # (Auto) 0.2 Baso # (Auto) 0.1 Absolute Nucleated RBC 0.00 Nucleated RBC % 0.0 Sodium 132 L Potassium 3.4 L Chloride 96 L Carbon Dioxide 27 Anion Gap 9.0 BUN 16 Creatinine 0.9 Estimated GFR (MDRD) 66 L Glucose 363 H Calcium 8.9 Total Bilirubin 0.8 AST 13 ALT 20 Alkaline Phosphatase 62 Total Protein 7.7 Albumin 3.8 Globulin 3.9 Albumin/Globulin Ratio 1.0 Amylase 61 Lipase 36 36 Urine Color Urine Clarity Urine pH Ur Specific [place] Urine Protein Urine Glucose (UA) Urine Ketones Urine Occult Blood Urine Nitrite Urine Bilirubin Urine Urobilinogen Ur Leukocyte Esterase Ur Microscopic Review Urine Culture Comments 10/28/22 04:41 WBC RBC Hgb Hct MCV MCH MCHC RDW Plt Count MPV Neut # (Auto) Lymph # (Auto) Colbert # (Auto) Eos # (Auto) Baso # (Auto) Absolute Nucleated RBC Nucleated RBC % Sodium Potassium Chloride Carbon Dioxide Anion Gap BUN Creatinine Estimated GFR (MDRD) Glucose Calcium Total Bilirubin AST ALT Alkaline Phosphatase Total Protein Albumin Globulin Albumin/Globulin Ratio Amylase Lipase Urine Color YELLOW Urine Clarity CLEAR Urine pH 6.0 Ur Specific [place] 1.015 Urine Protein NEGATIVE Urine Glucose (UA) >=1000 H Urine Ketones NEGATIVE Urine Occult Blood NEGATIVE Urine Nitrite NEGATIVE Urine Bilirubin NEGATIVE Urine Urobilinogen 0.2 (NORMAL) Ur Leukocyte Esterase NEGATIVE Ur Microscopic Review NOT INDICATED Urine Culture Comments NOT INDICATED PD Medical Decision Making - ED course Complexity details: reviewed old records, reviewed results, re-evaluated patient, considered differential, d/w patient ED course: mild leukocytosis (12.8 wbc) but otherwise unremarkable CBC. Blood glucose is 336. Her LFTs , amylase, and lipase are all normal. She has had previous visits with similar symptoms , at times with negative testing and other times with evidence of pancreatitis on CT despite normal or mildly abnormal lipase. She is given 8mg IV zofran, 1 liter NS IV, and 1 mg dilaudid (she does not request any specific medications, only that she not receive haldol or reglan due to adverse reaction). On reevaluation , labs results are reviewed with patient. She reports good pain relief but ongoing nausea. She is given phenergan 25mg IV (I see previous ED notes that reflect she had good result with this medication without adverse effect, but given 25mg IV benadryl pretreatment due to h/o adverse effects with reglan); she reports excellent relief of her nausea with these medications and is comfortable with d/c home. I e-prescribed zofran, phenergan, and dicyclomine; she says she has had relief of some of these symptoms with dicyclomine in the past and was going to ask her PMD for this prescription in a few days when she meets with her PMD. I told patient that I would be comfortable providing this rx Departure - Departure Disposition: Home, Self Care Clinical Impression: Abdominal pain Qualifiers: Abdominal location: upper abdomen, unspecified Qualified Code(s): R10.10 - Upper abdominal pain, unspecified Vomiting Qualifiers: Vomiting type: unspecified Nausea presence: with nausea Qualified Code(s): R11.2 - Nausea with vomiting, unspecified Condition: Good Instructions: ED Abdominal Pain Female Non-Specific Abdominal Pain, ED Nausea Vomiting Prescriptions: Dicyclomine [Bentyl] 10 mg PO QID PRN #20 cap PRN Reason: Abdominal Pain Promethazine [Phenergan] 25 mg PO Q6H PRN #10 tab PRN Reason: Nausea / Vomiting Ondansetron Odt [Zofran] 4 mg TL Q6H PRN #14 tablet PRN Reason: Nausea / Vomiting Comments: There were no concerning abnormalities on tonight's blood tests, although your blood sugar was rather high (363). Otherwise, you had a very mild elevation in your white blood cell count and mildly low potassium; neither of these findings were to a concerning nor significant extent. Prescriptions for ondansetron (antinausea medication), Phenergan (a different antinausea medication), and dicyclomine (an antispasmodic for the gastrointestinal tract) have been electronically submitted to [facility] pharmacy in [place]. Discharge Date/Time: 10/28/22 05:51
[2022-10-28 02:53] LABS: BASOPHILS # (AUTO) 0.1 10^3/uL (0.0-0.1); BASOPHILS % (AUTO) 0.5 %; EOSINOPHILS # (AUTO) 0.2 10^3/uL (0.0-0.7); EOSINOPHILS % (AUTO) 1.8 %; HCT - HEMATOCRIT 44.4 % (37.0-47.0); HGB - HEMOGLOBIN 14.7 g/dL (12.0-16.0); LYMPHOCYTES # (AUTO) 2.4 10^3/uL (1.5-3.5); MEAN CORPUSCULAR HEMOGLOBIN 29.5 pg (27.0-31.0); MEAN CORPUSCULAR HGB CONC 33.1 g/dL (32.0-36.0); MONOCYTES % (AUTO) 8.1 %; NEUTROPHILS % (AUTO) 70.3 %; PLT - PLATELET COUNT 351 10^3/uL (130-450); RED BLOOD COUNT 4.99 10^6/uL (4.20-5.40); RED CELL DISTRIBUTION WIDTH 12.7 % (12.0-15.0); WHITE BLOOD COUNT 12.8 x10^3/uL (4.8-10.8)
[2022-10-28 03:06] LABS: ALBUMIN 3.8 g/dL (3.2-5.5); BILIRUBIN,TOTAL 0.8 mg/dL (0.2-1.0); CALCIUM 8.9 mg/dL (8.5-10.3); CREATININE 0.9 mg/dL (0.4-1.0); POTASSIUM 3.4 mmol/L (3.5-5.0); TOTAL PROTEIN 7.7 g/dL (6.7-8.2)
[2022-10-28] MEDS ORDERED: HYDROmorphone 1 MG/ML CARPUJECT IVP STA (03:06)
[2022-10-28] MEDS ORDERED: SODIUM CHLORIDE 0.9% 1,000 ML IV STA (03:06)
[2022-10-28] MEDS ORDERED: ONDANSETRON 4 MG/2 ML VIAL IVP STA (03:06)
[2022-10-28 03:17] LABS: AMYLASE 61 U/L (28-100); LIPASE 36 U/L (22-51)
[2022-10-28] MEDS ORDERED: PROMETHAZINE INJ 25 MG in SODIUM CHLORIDE 0.9% 50 ML IV STA (04:17)
[2022-10-28] MEDS ORDERED: diphenhydrAMINE INJ 50 MG/ML VIAL IVP STA (04:18)
[2022-10-28] MEDS ORDERED: PROMETHAZINE 25 MG/1 ML VIAL ONE (04:25)
[2022-10-28 04:48] LABS: BILIRUBIN,URINE NEGATIVE (NEGATIVE); GLUCOSE, URINE (UA) >=1000 mg/dL (NEGATIVE); KETONES,URINE (UA) NEGATIVE (NEGATIVE); LEUKOCYTE ESTERASE, URINE NEGATIVE (NEGATIVE); NITRITE,URINE NEGATIVE (NEGATIVE); OCCULT BLOOD,URINE NEGATIVE (NEGATIVE); PROTEIN,URINE NEGATIVE (NEGATIVE); UROBILINOGEN,URINE 0.2 (NORMAL) E.U./dL (NORMAL)
[2022-10-28 04:50] LABS: CLARITY,URINE CLEAR (CLEAR)
[2022-10-28 05:48] VITALS: BP 146/101
== END 2022-10-28 05:51 | disposition home or self-care (01) ==
LOC: ED 02:29
DX: R11.2 Nausea with vomiting, unspecified (principal); R10.10 Upper abdominal pain, unspecified; I10 Essential (primary) hypertension; E11.9 Type 2 diabetes mellitus without complications; Z79.4 Long term (current) use of insulin; Z79.899 Other long term (current) drug therapy
CPT/HCPCS: 36415; 80053; 81001; 81003; 82150; 83690; 85025; 87086; 96365; 96375; 99283

== ENCOUNTER 2022-11-27 16:51 | Emergency (ER) | payer MEDICAID ==
[2022-11-27 17:04] VITALS: BP 143/93
[2022-11-27] MEDS ORDERED: SULFAMETH/TRIMETH DS 800/160 MG TABLET PO STA (17:22)
[2022-11-27] MEDS ORDERED: BACITRACIN ZINC OINT 1 PACKET TOP STA (17:22)
--- NOTE | 2022-11-27 17:26 | ED Physician Documentation ---
History of Present Illness - Stated complaint Stated Complaint: LUMP ON BACK OF HEAD - Chief complaint Chief Complaint: Wound - Additonal information Additional information: 52-year-old female presents emergency department for evaluation of an abscess on her posterior neck at the hairline. States she thought it started as an ingrown hair. It initially developed a pickett which she states drained some purulent fluid. However over the last 2 weeks it is failed to improve and has developed a hard dome with scabbing. Her daughter who is an RN attempted to open it up with a needle but was unsuccessful. Patient denies fevers but has some fairly significant tenderness in this region. Denies history of similar. Review of Systems Constitutional: reports: Reviewed and negative Skin: reports: Lesions PD PAST MEDICAL HISTORY - Past Medical History Cardiovascular: Hypertension Respiratory: None Neuro: Migraines Endocrine/Autoimmune: Type 2 diabetes GI: Pancreatitis, Cholelithiasis CERTIFIED OPHTHALMIC SURGICAL ASSISTANT: None : None HEENT: Chronic vision loss Psych: Depression, Anxiety Musculoskeletal: None - Past Surgical History Past Surgical History: Yes General: Cholecystectomy Ortho: Knee replacement /CERTIFIED OPHTHALMIC SURGICAL ASSISTANT: Tubal ligation, Hysterectomy, Oophrectomy, Breast reduction HEENT: Cataracts - Present Medications Home Medications: Ambulatory Orders Medication Instructions Recorded Confirmed Insulin Glargine [Lantus Solostar] 40 units SQ HS 11/03/20 08/31/21 Lisinopril [Zestril] 10 mg PO DAILY 11/03/20 08/31/21 Insulin Aspart [NovoLOG] 15 units SQ TID 11/08/20 02/09/21 Dicyclomine [Bentyl] 1 - 2 tab PO QID PRN #20 cap 03/28/21 10/06/22 Ondansetron Odt [Zofran] 4 mg TL Q6H PRN #10 tablet 08/10/21 10/06/22 Fluoxetine HCl [Prozac] 20 mg PO DAILY 08/31/21 08/31/21 LORazepam [Ativan] 1 mg PO BID PRN 08/31/21 08/31/21 Metoprolol Succinate [Toprol Xl] 25 mg PO DAILY PM 08/31/21 10/06/22 Promethazine Supp [Phenergan Supp] 25 mg HI Q8HR #30 supp 08/31/21 10/06/22 diphenhydrAMINE [Benadryl] 25 - 50 mg PO Q6HR PRN 08/31/21 10/06/22 Albuterol Sulf [Ventolin Hfa 1 - 2 puffs INH Q4HR PRN #1 inhaler 12/14/21 10/06/22 Inhaler] Benzonatate [Tessalon] 100 - 200 mg PO TID PRN #30 cap 12/14/21 10/06/22 Loratadine [Claritin] 10 mg PO ONCE 12/14/21 10/06/22 Ibuprofen [Motrin] 600 mg PO TID PRN #25 tab 08/22/22 HYDROcod/ACETAM 5/325 [[place] 5/325] 1 - 2 tablet PO Q6H PRN #14 tablet 08/24/22 Clotrimazole/Betamethasone Crm 1 applic TOP BID #45 ml 10/06/22 [Lotrisone Cream] Doxycycline Hyclate 100 mg PO BID 7 Days #14 cap 10/06/22 Fluconazole [Diflucan] 150 mg PO Q3D #2 tablet 10/06/22 Ciprofloxacin HCl [Cipro] 500 mg PO BID 5 Days #10 tablet 10/09/22 Dicyclomine [Bentyl] 10 mg PO QID PRN #20 cap 10/28/22 Ondansetron Odt [Zofran] 4 mg TL Q6H PRN #14 tablet 10/28/22 Promethazine [Phenergan] 25 mg PO Q6H PRN #10 tab 10/28/22 Mupirocin 2% Oint [Bactroban 2% 1 applic TOP BID #22 gm 11/27/22 Oint] Sulfamethox/Trimeth 800/160 1 each PO BID #14 tablet 11/27/22 [Bactrim Ds 800/160] - Allergies Allergies/Adverse Reactions: Allergies Allergy/AdvReac Type Severity Reaction Status Date / Time haloperidol Allergy Hallucinati Verified 11/27/22 17:03 ons metoclopramide [From Reglan] AdvReac Rash Verified 11/27/22 17:03 - Social History Does the pt smoke?: No Smoking Status: Never smoker Does the pt drink ETOH?: No Does the pt have substance abuse?: No - Immunizations Immunizations are current?: Yes - POLST Patient has POLST: No PD ED PE EXPANDED - Derm Derm: Other (Approximate 3 cm carbuncle at the base of the neck near the hairline with some yellow crusting exudate and mild surrounding erythema and induration.) Results - Vitals Vitals: Vital Signs - 24 hr 11/27/22 17:01 Temperature 36.4 C L Heart Rate 108 H Respiratory 16 Rate Blood Pressure 143/93 H O2 Saturation 100 Oxygen O2 Source Room air Procedures - Abscess I&D (location) posterior neck Preparation: Betadine Incision: Incised with scalpel, Purulent drainage, Loculations broken, Irrigated Other: Pt tolerated well, Dressing applied, Antibiotic prescribed PD Medical Decision Making - ED course Complexity details: d/w patient ED course: 52-year-old Female presents to the emergency department for evaluation of what appears to be early abscess in her posterior scalp at the neck/hairline. Is been present after about 2 weeks initially drained purulent fluid but failing to resolve over time. At the bedside I did do incision and drainage where small amount perhaps 2 cc of purulent fluid was drained. It was irrigated. Patient will be started on Bactrim. No culture was obtained given purulence likely to be MRSA or similar. We discussed the usual routine wound care and emergent return precautions. Departure - Departure Disposition: 01 Home, Self Care Clinical Impression: Cutaneous abscess of neck Condition: Stable Record reviewed to determine appropriate education?: Yes Instructions: ED Abscess IandD Prescriptions: Sulfamethox/Trimeth 800/160 [Bactrim Ds 800/160] 1 each PO BID #14 tablet Mupirocin 2% Oint [Bactroban 2% Oint] 1 applic TOP BID #22 gm Comments: Crystal you likely did develop an ingrown hair that developed an infection. At the bedside we did do a simple incision and drainage Had a small amount of purulent or milky fluid was drained. At this point you can shower normally. I do recommend that you place the antibiotic ointment mupirocin over it twice daily for the next several weeks. I have sent a prescription for Bactrim and antibiotic to the [facility] in [place]. I expect that this will simply heal. However if you find that you are having increasing redness, pain fevers or worsening symptoms despite the antibiotics and this drainage then please return to the ER for repeat evaluation
== END 2022-11-27 17:32 | disposition home or self-care (01) ==
LOC: ED 16:51
DX: L02.11 Cutaneous abscess of neck (principal); E11.9 Type 2 diabetes mellitus without complications; Z79.4 Long term (current) use of insulin
CPT/HCPCS: 10060; 99282; A9270

== ENCOUNTER 2022-12-06 08:55 | Outpatient (CLI) | payer MEDICAID ==
[2022-12-06 09:19] LABS: BASOPHILS # (AUTO) 0.1 10^3/uL (0.0-0.1); BASOPHILS % (AUTO) 1.4 %; EOSINOPHILS # (AUTO) 0.2 10^3/uL (0.0-0.7); EOSINOPHILS % (AUTO) 2.5 %; HCT - HEMATOCRIT 46.8 % (37.0-47.0); HGB - HEMOGLOBIN 15.3 g/dL (12.0-16.0); LYMPHOCYTES # (AUTO) 3.7 10^3/uL (1.5-3.5); LYMPHOCYTES % (AUTO) 51.3 %; MEAN CORPUSCULAR HEMOGLOBIN 29.5 pg (27.0-31.0); MEAN CORPUSCULAR HGB CONC 32.7 g/dL (32.0-36.0); MEAN CORPUSCULAR VOLUME 90.2 fL (81.0-99.0); MEAN PLATELET VOLUME 8.8 fL (7.9-10.8); MONOCYTES # (AUTO) 0.6 10^3/uL (0.0-1.0); MONOCYTES % (AUTO) 8.8 %; NEUTROPHILS # (AUTO) 2.6 10^3/uL (1.5-6.6); NEUTROPHILS % (AUTO) 35.7 %; PLT - PLATELET COUNT 397 10^3/uL (130-450); RED BLOOD COUNT 5.19 10^6/uL (4.20-5.40); RED CELL DISTRIBUTION WIDTH 12.4 % (12.0-15.0); WHITE BLOOD COUNT 7.1 x10^3/uL (4.8-10.8)
[2022-12-06 09:37] LABS: CREATININE,URINE 91.9 mg/dL; MICROALBUM/CREATININE RATIO,UR 3.3 ug/mg (<30.0); MICROALBUMIN,URINE 0.3 mg/dL (0-300.0)
[2022-12-06 09:39] LABS: ALBUMIN 4.4 g/dL (3.2-5.5); ALKALINE PHOSPHATASE 62 IU/L (42-121); ALT ALANINE AMINOTRANSFERASE 24 IU/L (10-60); AST ASPARTATE AMINOTRANSFERASE 15 IU/L (10-42); BILIRUBIN,TOTAL 0.6 mg/dL (0.2-1.0); BUN - BLOOD UREA NITROGEN 18 mg/dL (6-20); CALCIUM 9.6 mg/dL (8.5-10.3); CARBON DIOXIDE - CO2 28 mmol/L (21-32); CHLORIDE 96 mmol/L (101-111); CHOL/HDL RATIO 4.5 (<4.4); CHOLESTEROL 198 mg/dL; GFR - MDRD 58 (>89); GLUCOSE 256 mg/dL (70-100); HDL CHOLESTEROL 44 mg/dL; LDL CHOLESTEROL,CALCULATED 108 mg/dL; LDL/HDL RATIO 2.5 (<4.4); POTASSIUM 4.1 mmol/L (3.5-5.0); SODIUM 136 mmol/L (135-145); TOTAL PROTEIN 8.9 g/dL (6.7-8.2); TRIGLYCERIDES 232 mg/dL; VLDL CHOLESTEROL 46 mg/dL
[2022-12-06 09:50] LABS: THYROID STIMULATING HORMONE 3.07 uIU/mL (0.34-5.60)
[2022-12-06 13:59] LABS: ESTIMATED AVERAGE GLUCOSE 263 mg/dL (70-100); HEMOGLOBIN A1c% 10.8 % (4.27-6.07)
== END 2022-12-06 08:56 | disposition home or self-care (01) ==
LOC: LAB 08:55
PROVIDERS: ATTEND Physician Assistant
DX: E11.8 Type 2 diabetes mellitus with unspecified complications (principal)
CPT/HCPCS: 36415; 80053; 80061; 82043; 82570; 83036; 83721; 84443; 85025

== ENCOUNTER 2023-02-05 09:52 | Outpatient (CLI) | payer MEDICAID | END 2023-02-05 23:59 | disposition critical access hospital (66) | LOC: EMS 09:52 | DX: M54.2 Cervicalgia (principal); M25.511 Pain in right shoulder; V53.5XXA Driver of pick-up truck or van injured in collision with car, pick-up truck or van in traffic accident, initial encounter; Y92.413 State road as the place of occurrence of the external cause | CPT/HCPCS: A0425; A0429 ==

== ENCOUNTER 2023-02-05 10:01 | Emergency (ER) | payer OTHER, MEDICAID ==
[2023-02-05 10:19] VITALS: BP 152/109
[2023-02-05] MEDS ORDERED: LIDOCAINE PATCH 5% TOP STA (10:29)
[2023-02-05] MEDS ORDERED: IBUPROFEN 600 MG TABLET PO STA (10:30)
[2023-02-05] MEDS ORDERED: ONDANSETRON ODT 4 MG TABLET TL STA (10:30)
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
== END 2023-02-05 11:30 | disposition home or self-care (01) ==
LOC: EDUNIT# → ED 10:01 → SUPCPDRO 10:01 → ED 11:30
DX: S16.1XXA Strain of muscle, fascia and tendon at neck level, initial encounter (principal); V59.49XA Driver of pick-up truck or van injured in collision with other motor vehicles in traffic accident, initial encounter; Y93.89 Activity, other specified; Y92.410 Unspecified street and highway as the place of occurrence of the external cause
CPT/HCPCS: 99283; A9270; Q0162

== ENCOUNTER 2023-04-02 19:54 | Emergency (ER) | payer MEDICAID ==
--- NOTE | 2023-04-02 20:44 | ED Physician Documentation ---
History of Present Illness - Stated complaint Stated Complaint: RASH - Chief complaint Chief Complaint: Wound - History obtained from History obtained from: Patient - History of Present Illness Timing: How many weeks ago (3) Pain level max: 0 Pain level now: 0 - Additonal information Additional information: 53 year old female with a rash x 3 weeks. The rash is present under the bilateral breasts, in the umbilicus and under the pannus. Described as itchy and painful. No fevers. No chills. No drainage. Has tried baby powder without relief. Review of Systems Constitutional: denies: Fever, Chills Nose: denies: Rhinorrhea / runny nose, Congestion Respiratory: denies: Cough GI: denies: Nausea, Vomiting, Diarrhea : reports: Dysuria (mild yesterday). denies: Frequency, Hesitancy Skin: denies: Rash Musculoskeletal: denies: Neck pain, Back pain Neurologic: denies: Headache PD PAST MEDICAL HISTORY - Past Medical History Past Medical History: Yes Cardiovascular: Hypertension Respiratory: None Neuro: Migraines Endocrine/Autoimmune: Type 2 diabetes GI: Pancreatitis, Cholelithiasis [facility] STORAGE ARCHITECT: None : None HEENT: Chronic vision loss Psych: Depression, Anxiety Musculoskeletal: None - Past Surgical History Past Surgical History: Yes General: Cholecystectomy Ortho: Knee replacement /[facility] STORAGE ARCHITECT: Tubal ligation, Hysterectomy, Oophrectomy, Breast reduction HEENT: Cataracts - Present Medications Home Medications: Ambulatory Orders Medication Instructions Recorded Confirmed Insulin Glargine [Lantus Solostar] 40 units SQ HS 11/03/20 04/02/23 Lisinopril [Zestril] 10 mg PO DAILY 11/03/20 04/02/23 Insulin Aspart [NovoLOG] 15 units SQ TID 11/08/20 04/02/23 Dicyclomine [Bentyl] 1 - 2 tab PO QID PRN #20 cap 03/28/21 04/02/23 Ondansetron Odt [Zofran] 4 mg TL Q6H PRN #10 tablet 08/10/21 04/02/23 Fluoxetine HCl [Prozac] 20 mg PO DAILY 08/31/21 04/02/23 LORazepam [Ativan] 1 mg PO BID PRN 08/31/21 04/02/23 Metoprolol Succinate [Toprol Xl] 25 mg PO DAILY PM 08/31/21 04/02/23 Promethazine Supp [Phenergan Supp] 25 mg [place] Q8HR #30 supp 08/31/21 04/02/23 diphenhydrAMINE [Benadryl] 25 - 50 mg PO Q6HR PRN 08/31/21 04/02/23 Albuterol Sulf [Ventolin Hfa 1 - 2 puffs INH Q4HR PRN #1 inhaler 12/14/21 04/02/23 Inhaler] Benzonatate [Tessalon] 100 - 200 mg PO TID PRN #30 cap 12/14/21 04/02/23 Loratadine [Claritin] 10 mg PO ONCE 12/14/21 04/02/23 Ibuprofen [Motrin] 600 mg PO TID PRN #25 tab 08/22/22 04/02/23 HYDROcod/ACETAM 5/325 [[place] 5/325] 1 - 2 tablet PO Q6H PRN #14 tablet 08/24/22 04/02/23 Clotrimazole/Betamethasone Crm 1 applic TOP BID #45 ml 10/06/22 04/02/23 [Lotrisone Cream] Doxycycline Hyclate 100 mg PO BID 7 Days #14 cap 10/06/22 04/02/23 Fluconazole [Diflucan] 150 mg PO Q3D #2 tablet 10/06/22 04/02/23 Ciprofloxacin HCl [Cipro] 500 mg PO BID 5 Days #10 tablet 10/09/22 04/02/23 Dicyclomine [Bentyl] 10 mg PO QID PRN #20 cap 10/28/22 04/02/23 Ondansetron Odt [Zofran] 4 mg TL Q6H PRN #14 tablet 10/28/22 04/02/23 Promethazine [Phenergan] 25 mg PO Q6H PRN #10 tab 10/28/22 04/02/23 Mupirocin 2% Oint [Bactroban 2% 1 applic TOP BID #22 gm 11/27/22 04/02/23 Oint] Sulfamethox/Trimeth 800/160 1 each PO BID #14 tablet 11/27/22 04/02/23 [Bactrim Ds 800/160] Cyclobenzaprine [Flexeril] 10 mg PO TID PRN #20 tablet 02/05/23 04/02/23 Lidocaine Patch 5% [Lidoderm Patch] 1 patch TOP DAILY PRN #10 patch 02/05/23 04/02/23 Clotrimazole 1% Cream [Lotrimin 1% 1 gm TOP BID #30 gm 04/02/23 Cream] - Allergies Allergies/Adverse Reactions: Allergies Allergy/AdvReac Type Severity Reaction Status Date / Time haloperidol Allergy Hallucinati Verified 04/02/23 19:56 ons metoclopramide [From Reglan] AdvReac Rash Verified 04/02/23 19:56 - Social History Does the pt smoke?: No Smoking Status: Never smoker Does the pt drink ETOH?: No Does the pt have substance abuse?: No - Immunizations Immunizations are current?: Yes - POLST Patient has POLST: No PD ED PE NORMAL - Vitals Vital signs reviewed: Yes - General General: Alert and oriented X 3, No acute distress - HEENT HEENT: Moist mucous membranes - Neck Neck: Supple, no meningeal sign - Cardiac Cardiac: RRR, Strong equal pulses - Respiratory Respiratory: No respiratory distress, Clear bilaterally - Abdomen Abdomen: Soft, Non tender, Non distended - Derm Derm: Warm and dry, Other (erythematous rash under the bilateral breasts and pannus. satellite lesions present. ) - Neuro Neuro: Alert and oriented X 3 - Psych Psych: Normal mood, Normal affect Results - Vitals Vitals: Vital Signs - 24 hr 04/02/23 04/02/23 19:56 21:10 Temperature 36.5 C Heart Rate 100 95 Respiratory 16 15 Rate Blood Pressure 140/90 H 140/94 H O2 Saturation 100 98 Oxygen O2 Source Room air - Labs Labs: Laboratory Tests 04/02/23 20:45 Urine Color YELLOW Urine Clarity CLEAR Urine pH 6.0 Ur Specific [place] 1.010 Urine Protein NEGATIVE Urine Glucose (UA) >=1000 H Urine Ketones NEGATIVE Urine Occult Blood TRACE-INTA Urine Nitrite NEGATIVE Urine Bilirubin NEGATIVE Urine Urobilinogen 0.2 (NORMAL) Ur Leukocyte Esterase NEGATIVE Ur Microscopic Review NOT INDICATED Urine Culture Comments NOT INDICATED PD Medical Decision Making - ED course Complexity details: considered differential, d/w patient ED course: Patient with what appears to be cutaneous candidiasis. No evidence of secondary infection. She did have mild dysuria so urinalysis was performed. No infection. We will place on clotrimazole cream and have her follow-up with her doctor for further care. Patient counseled regarding signs and symptoms for which I believe and urgent re-evaluation would be necessary. Patient with good understanding of and agreement to plan and is comfortable going home at this time This document was made in part using voice recognition software. While efforts are made to proofread this document, sound alike and grammatical errors may occur. Departure - Departure Disposition: 01 Home, Self Care Clinical Impression: Cutaneous candidiasis Condition: Good Instructions: ED Candidiasis Cutaneous Follow-Up: Anel David PA [Primary Care Provider] - Within 1 week Prescriptions: Clotrimazole 1% Cream [Lotrimin 1% Cream] 1 gm TOP BID #30 gm Comments: Your prescription was sent to [facility] in [place]. You will need to apply the cream for approximately 2 weeks, possibly up to 4 weeks. Please make sure to keep the skin as dry as possible, after getting out of the shower you may want to use a physics department chair on a cool setting to ensure the areas are completely dry. Please follow-up with your doctor for further care. Forms: PCP List Discharge Date/Time: 04/02/23 21:12
[2023-04-02 20:54] LABS: BILIRUBIN,URINE NEGATIVE (NEGATIVE); GLUCOSE, URINE (UA) >=1000 mg/dL (NEGATIVE); KETONES,URINE (UA) NEGATIVE (NEGATIVE); LEUKOCYTE ESTERASE, URINE NEGATIVE (NEGATIVE); NITRITE,URINE NEGATIVE (NEGATIVE); OCCULT BLOOD,URINE TRACE-INTA (NEGATIVE); PROTEIN,URINE NEGATIVE (NEGATIVE); UROBILINOGEN,URINE 0.2 (NORMAL) E.U./dL (NORMAL)
[2023-04-02 20:55] LABS: CLARITY,URINE CLEAR (CLEAR)
[2023-04-02 21:11] VITALS: BP 140/94; O2SAT 98
== END 2023-04-02 21:12 | disposition home or self-care (01) ==
LOC: ED 19:54
DX: B37.2 Candidiasis of skin and nail (principal); I10 Essential (primary) hypertension; E11.9 Type 2 diabetes mellitus without complications; Z79.4 Long term (current) use of insulin
CPT/HCPCS: 81001; 81003; 87086; 99283

== ENCOUNTER 2023-04-14 18:11 | Emergency (ER) | payer MEDICAID ==
[2023-04-14 18:21] VITALS: BP 135/100; O2SAT 100
--- NOTE | 2023-04-14 18:39 | ED Physician Documentation ---
History of Present Illness - Stated complaint Stated Complaint: RASH,NAUSEA - Chief complaint Chief Complaint: Abd Pain - Additonal information Additional information: 53-year-old female presents emergency department for evaluation of a rash. Seen by my colleague for similar at the end of March thought to have intertrigo. Was advised clotrimazole cream twice daily. She states that initially the rash had improved under her pannus and breasts but over the last several days it is worsened and now she has similar rash under her axilla and behind her neck. Review of Systems Constitutional: denies: Fever Skin: reports: Rash PD PAST MEDICAL HISTORY - Past Medical History Cardiovascular: Hypertension Respiratory: None Neuro: Migraines Endocrine/Autoimmune: Type 2 diabetes GI: Pancreatitis, Cholelithiasis PHONE SCREENER: None : None HEENT: Chronic vision loss Psych: Depression, Anxiety Musculoskeletal: None - Past Surgical History Past Surgical History: Yes General: Cholecystectomy Ortho: Knee replacement /PHONE SCREENER: Tubal ligation, Hysterectomy, Oophrectomy, Breast reduction HEENT: Cataracts - Present Medications Home Medications: Ambulatory Orders Medication Instructions Recorded Confirmed Insulin Glargine [Lantus Solostar] 40 units SQ HS 11/03/20 04/02/23 Lisinopril [Zestril] 10 mg PO DAILY 11/03/20 04/02/23 Insulin Aspart [NovoLOG] 15 units SQ TID 11/08/20 04/02/23 Dicyclomine [Bentyl] 1 - 2 tab PO QID PRN #20 cap 03/28/21 04/02/23 Ondansetron Odt [Zofran] 4 mg TL Q6H PRN #10 tablet 08/10/21 04/02/23 Fluoxetine HCl [Prozac] 20 mg PO DAILY 08/31/21 04/02/23 LORazepam [Ativan] 1 mg PO BID PRN 08/31/21 04/02/23 Metoprolol Succinate [Toprol Xl] 25 mg PO DAILY PM 08/31/21 04/02/23 Promethazine Supp [Phenergan Supp] 25 mg [place] Q8HR #30 supp 08/31/21 04/02/23 diphenhydrAMINE [Benadryl] 25 - 50 mg PO Q6HR PRN 08/31/21 04/02/23 Albuterol Sulf [Ventolin Hfa 1 - 2 puffs INH Q4HR PRN #1 inhaler 12/14/21 04/02/23 Inhaler] Benzonatate [Tessalon] 100 - 200 mg PO TID PRN #30 cap 12/14/21 04/02/23 Loratadine [Claritin] 10 mg PO ONCE 12/14/21 04/02/23 Ibuprofen [Motrin] 600 mg PO TID PRN #25 tab 08/22/22 04/02/23 HYDROcod/ACETAM 5/325 [[place] 5/325] 1 - 2 tablet PO Q6H PRN #14 tablet 08/24/22 04/02/23 Clotrimazole/Betamethasone Crm 1 applic TOP BID #45 ml 10/06/22 04/02/23 [Lotrisone Cream] Doxycycline Hyclate 100 mg PO BID 7 Days #14 cap 10/06/22 04/02/23 Fluconazole [Diflucan] 150 mg PO Q3D #2 tablet 10/06/22 04/02/23 Ciprofloxacin HCl [Cipro] 500 mg PO BID 5 Days #10 tablet 10/09/22 04/02/23 Dicyclomine [Bentyl] 10 mg PO QID PRN #20 cap 10/28/22 04/02/23 Ondansetron Odt [Zofran] 4 mg TL Q6H PRN #14 tablet 10/28/22 04/02/23 Promethazine [Phenergan] 25 mg PO Q6H PRN #10 tab 10/28/22 04/02/23 Mupirocin 2% Oint [Bactroban 2% 1 applic TOP BID #22 gm 11/27/22 04/02/23 Oint] Sulfamethox/Trimeth 800/160 1 each PO BID #14 tablet 11/27/22 04/02/23 [Bactrim Ds 800/160] Cyclobenzaprine [Flexeril] 10 mg PO TID PRN #20 tablet 02/05/23 04/02/23 Lidocaine Patch 5% [Lidoderm Patch] 1 patch TOP DAILY PRN #10 patch 02/05/23 Clotrimazole 1% Cream [Lotrimin 1% 1 gm TOP BID #30 gm 04/02/23 Cream] Fluconazole 150 mg PO DAILY #3 tablet 04/14/23 - Allergies Allergies/Adverse Reactions: Allergies Allergy/AdvReac Type Severity Reaction Status Date / Time haloperidol Allergy Hallucinati Verified 04/14/23 18:15 ons metoclopramide [From Reglan] AdvReac Rash Verified 04/14/23 18:15 - Social History Does the pt smoke?: No Smoking Status: Never smoker Does the pt drink ETOH?: No Does the pt have substance abuse?: No - Immunizations Immunizations are current?: Yes - POLST Patient has POLST: No PD ED PE EXPANDED - General General: Alert, No acute distress - Derm Derm: Other (Extensive erythematous rash under both her breasts and pannus. There are some similar satellite appearing lesions around her neck and under her axilla that do have some areas of clearing. Nonvesicular.) Results - Vitals Vitals: Vital Signs - 24 hr 04/14/23 18:15 Temperature 36.5 C Heart Rate 122 H Respiratory 20 Rate Blood Pressure 135/100 H O2 Saturation 100 Oxygen O2 Source Room air PD Medical Decision Making - ED course Complexity details: d/w patient ED course: 53-year-old female presents to the emergency department for reevaluation of a rash. Seen by my colleague for similar about 2 weeks ago. Was initially thought to have a fungal rash and was started on clotrimazole cream. She did initially have some clearing but since then it has worsened and now has new lesions around her neck and in the axillary area. Clinically I am most suspicious for concurrent fungal infections. She is advised to continue the clotrimazole but will be given fluconazole tablets to use every 3 days for the 3 doses. Given how extensive the rashes I feel she would benefit from referral to dermatology and have asked her to follow-up at one of the local walk-in clinics to obtain this referral. The usual emergent return precautions were otherwise discussed. Departure - Departure Disposition: 01 Home, Self Care Clinical Impression: Rash Condition: Stable Record reviewed to determine appropriate education?: Yes Prescriptions: Fluconazole 150 mg PO DAILY #3 tablet Comments: Crystal your rash still seems to be related to fungus. I would continue to use the clotrimazole cream as you have been, twice daily. When you get out of the shower use a dehairer on a low setting to ensure that you thoroughly dry all of your skin areas including the folds of your neck armpits and under your breast. I would like you to fill the prescription for the fluconazole or Diflucan tablets. You will take 1 tablet every 3 days for a total of 3 doses. Please follow closely with one of our local walk-in clinics. At this time I feel you would benefit from referral to a track inspecting supervisor given how extensive your rash is.
== END 2023-04-14 18:52 | disposition home or self-care (01) ==
LOC: ED 18:11
DX: R21 Rash and other nonspecific skin eruption (principal); I10 Essential (primary) hypertension; E11.9 Type 2 diabetes mellitus without complications; Z79.4 Long term (current) use of insulin
CPT/HCPCS: 99282; 99283

== ENCOUNTER 2023-05-29 08:33 | Outpatient (CLI) | payer MEDICAID ==
[2023-05-29 08:49] LABS: BASOPHILS # (AUTO) 0.1 10^3/uL (0.0-0.1); EOSINOPHILS # (AUTO) 0.2 10^3/uL (0.0-0.7); HCT - HEMATOCRIT 44.2 % (37.0-47.0); HGB - HEMOGLOBIN 14.8 g/dL (12.0-16.0); LYMPHOCYTES # (AUTO) 3.1 10^3/uL (1.5-3.5); LYMPHOCYTES % (AUTO) 51.3 %; MEAN CORPUSCULAR HEMOGLOBIN 30.1 pg (27.0-31.0); MEAN CORPUSCULAR HGB CONC 33.5 g/dL (32.0-36.0); MEAN PLATELET VOLUME 9.3 fL (7.9-10.8); MONOCYTES # (AUTO) 0.5 10^3/uL (0.0-1.0); MONOCYTES % (AUTO) 8.7 %; NEUTROPHILS # (AUTO) 2.2 10^3/uL (1.5-6.6); NEUTROPHILS % (AUTO) 35.8 %; PLT - PLATELET COUNT 362 10^3/uL (130-450); RED BLOOD COUNT 4.91 10^6/uL (4.20-5.40); RED CELL DISTRIBUTION WIDTH 12.5 % (12.0-15.0)
[2023-05-29 09:14] LABS: CALCIUM 9.8 mg/dL (8.5-10.3); CREATININE 0.8 mg/dL (0.6-1.3); POTASSIUM 4.1 mmol/L (3.5-4.5)
[2023-05-29 09:26] LABS: THYROID STIMULATING HORMONE 2.16 uIU/mL (0.34-5.60)
[2023-05-29 12:13] LABS: ESTIMATED AVERAGE GLUCOSE 235 mg/dL (70-100); HEMOGLOBIN A1c% 9.8 % (4.27-6.07)
[2023-05-30 07:08] LABS: HIV SCREEN 4TH GENERATION Non Reactive (Non Reactive)
== END 2023-05-29 08:34 | disposition home or self-care (01) ==
LOC: LAB 08:33
PROVIDERS: ATTEND Physician Assistant
DX: E11.8 Type 2 diabetes mellitus with unspecified complications (principal); B37.2 Candidiasis of skin and nail
CPT/HCPCS: 36415; 80048; 83036; 84443; 85025; 87389

== ENCOUNTER 2023-07-31 17:21 | Emergency (ER) | payer MEDICAID ==
[2023-07-31] MEDS ORDERED: ONDANSETRON ODT 4 MG TABLET TL STA (17:49)
[2023-07-31 18:40] LABS: BASOPHILS # (AUTO) 0.1 10^3/uL (0.0-0.1); BASOPHILS % (AUTO) 0.4 %; EOSINOPHILS # (AUTO) 0.1 10^3/uL (0.0-0.7); EOSINOPHILS % (AUTO) 0.6 %; HCT - HEMATOCRIT 46.6 % (37.0-47.0); HGB - HEMOGLOBIN 15.8 g/dL (12.0-16.0); LYMPHOCYTES # (AUTO) 1.7 10^3/uL (1.5-3.5); LYMPHOCYTES % (AUTO) 10.4 %; MEAN CORPUSCULAR HGB CONC 33.9 g/dL (32.0-36.0); MEAN CORPUSCULAR VOLUME 88.6 fL (81.0-99.0); MEAN PLATELET VOLUME 9.4 fL (7.9-10.8); MONOCYTES % (AUTO) 5.9 %; NEUTROPHILS # (AUTO) 13.5 10^3/uL (1.5-6.6); NEUTROPHILS % (AUTO) 82.2 %; PLT - PLATELET COUNT 412 10^3/uL (130-450); RED BLOOD COUNT 5.26 10^6/uL (4.20-5.40); RED CELL DISTRIBUTION WIDTH 12.2 % (12.0-15.0); WHITE BLOOD COUNT 16.5 x10^3/uL (4.8-10.8)
[2023-07-31 18:47] LABS: ALBUMIN 4.7 g/dL (3.2-5.5); ALBUMIN/GLOBULIN RATIO 1.1 (1.0-2.2); BILIRUBIN,TOTAL 0.7 mg/dL (0.2-1.0); CREATININE 0.9 mg/dL (0.6-1.3); TOTAL PROTEIN 8.8 g/dL (6.4-8.9)
[2023-07-31] MEDS ORDERED: SODIUM CHLORIDE 0.9% 1,000 ML IV STA ×2 (19:35→21:01)
[2023-07-31] MEDS ORDERED: PROMETHAZINE INJ 25 MG in SODIUM CHLORIDE 0.9% 50 ML IV STA (19:35)
[2023-07-31] MEDS ORDERED: HYDROmorphone 1 MG/ML CARPUJECT IVP STA ×2 (19:39→21:01)
--- NOTE | 2023-07-31 19:39 | ED Physician Documentation ---
PD HPI ABD PAIN - Stated complaint Stated Complaint: N/V/D - Chief complaint Chief Complaint: Abd Pain - Additional information Additional information: 53-year-old female who has a history of pancreatitis and recurrent episodes of nausea vomiting presents with midepigastric pain as well as nausea vomiting. Symptoms started this afternoon around 1:00. She had just eaten grocery store pizza and then was going shopping with her family and had sudden onset of pain and vomiting. Pain is similar to all of her prior exacerbations of pancreatitis. She states she tried to manage at home, she normally takes oral promethazine, sublingual Zofran, and pain medication but she took these things and had no improvement in her symptoms. She typically does not come in for exacerbations and thus they are worse than normal. She states this feels like an exacerbation of her typical pain but not relieved with her usual medication. She has not had a fever, does feel chilled since she has been vomiting. No chest pain no difficulty breathing, no constipation or diarrhea, no urinary symptoms. She has a history of cholecystectomy.She does not drink alcohol. Review of Systems Constitutional: reports: Reviewed and negative Nose: reports: Reviewed and negative Throat: reports: Reviewed and negative Cardiac: reports: Reviewed and negative Respiratory: reports: Reviewed and negative GI: reports: Abdominal Pain, Nausea, Vomiting. denies: Abdominal Swelling, Constipation, Diarrhea, Hematemesis : reports: Reviewed and negative Skin: reports: Reviewed and negative Musculoskeletal: reports: Reviewed and negative Neurologic: reports: Reviewed and negative Psychiatric: reports: Reviewed and negative Endocrine: reports: Reviewed and negative PD PAST MEDICAL HISTORY - Past Medical History Past Medical History: Yes Cardiovascular: Hypertension Respiratory: None Neuro: Migraines Endocrine/Autoimmune: Type 2 diabetes GI: Pancreatitis, Cholelithiasis STATE MANAGER: None : None HEENT: Chronic vision loss Psych: Depression, Anxiety Musculoskeletal: None - Past Surgical History Past Surgical History: Yes General: Cholecystectomy Ortho: Knee replacement /STATE MANAGER: Tubal ligation, Hysterectomy, Oophrectomy, Breast reduction HEENT: Cataracts - Present Medications Home Medications: Ambulatory Orders Medication Instructions Recorded Confirmed Insulin Glargine [Lantus Solostar] 40 units SQ HS 11/03/20 04/02/23 Lisinopril [Zestril] 10 mg PO DAILY 11/03/20 04/02/23 Insulin Aspart [NovoLOG] 15 units SQ TID 11/08/20 04/02/23 Dicyclomine [Bentyl] 1 - 2 tab PO QID PRN #20 cap 03/28/21 04/02/23 Ondansetron Odt [Zofran] 4 mg TL Q6H PRN #10 tablet 08/10/21 04/02/23 Fluoxetine HCl [Prozac] 20 mg PO DAILY 08/31/21 04/02/23 LORazepam [Ativan] 1 mg PO BID PRN 08/31/21 04/02/23 Metoprolol Succinate [Toprol Xl] 25 mg PO DAILY PM 08/31/21 04/02/23 Promethazine Supp [Phenergan Supp] 25 mg [place] Q8HR #30 supp 08/31/21 04/02/23 diphenhydrAMINE [Benadryl] 25 - 50 mg PO Q6HR PRN 08/31/21 04/02/23 Albuterol Sulf [Ventolin Hfa 1 - 2 puffs INH Q4HR PRN #1 inhaler 12/14/21 04/02/23 Inhaler] Benzonatate [Tessalon] 100 - 200 mg PO TID PRN #30 cap 12/14/21 04/02/23 Loratadine [Claritin] 10 mg PO ONCE 12/14/21 04/02/23 Ibuprofen [Motrin] 600 mg PO TID PRN #25 tab 08/22/22 04/02/23 HYDROcod/ACETAM 5/325 [[place] 5/325] 1 - 2 tablet PO Q6H PRN #14 tablet 08/24/22 04/02/23 Clotrimazole/Betamethasone Crm 1 applic TOP BID #45 ml 10/06/22 04/02/23 [Lotrisone Cream] Doxycycline Hyclate 100 mg PO BID 7 Days #14 cap 10/06/22 04/02/23 Fluconazole [Diflucan] 150 mg PO Q3D #2 tablet 10/06/22 04/02/23 Ciprofloxacin HCl [Cipro] 500 mg PO BID 5 Days #10 tablet 10/09/22 04/02/23 Dicyclomine [Bentyl] 10 mg PO QID PRN #20 cap 10/28/22 04/02/23 Ondansetron Odt [Zofran] 4 mg TL Q6H PRN #14 tablet 10/28/22 04/02/23 Promethazine [Phenergan] 25 mg PO Q6H PRN #10 tab 10/28/22 04/02/23 Mupirocin 2% Oint [Bactroban 2% 1 applic TOP BID #22 gm 11/27/22 04/02/23 Oint] Sulfamethox/Trimeth 800/160 1 each PO BID #14 tablet 11/27/22 04/02/23 [Bactrim Ds 800/160] Cyclobenzaprine [Flexeril] 10 mg PO TID PRN #20 tablet 02/05/23 04/02/23 Lidocaine Patch 5% [Lidoderm Patch] 1 patch TOP DAILY PRN #10 patch 02/05/23 04/02/23 Clotrimazole 1% Cream [Lotrimin 1% 1 gm TOP BID #30 gm 04/02/23 Cream] Fluconazole 150 mg PO DAILY #3 tablet 04/14/23 - Allergies Allergies/Adverse Reactions: Allergies Allergy/AdvReac Type Severity Reaction Status Date / Time haloperidol Allergy Hallucinati Verified 04/14/23 18:15 ons metoclopramide [From Reglan] AdvReac Rash Verified 04/14/23 18:15 - Social History Does the pt smoke?: No Smoking Status: Never smoker Does the pt drink ETOH?: No Does the pt have substance abuse?: No - Immunizations Immunizations are current?: Yes - POLST Patient has POLST: No PD ED PE NORMAL - Vitals Vital signs reviewed: Yes - General General: Alert and oriented X 3, No acute distress, Well developed/nourished - HEENT HEENT: Atraumatic, Moist mucous membranes - Neck Neck: Supple, no meningeal sign, No JVD - Cardiac Cardiac: No murmur, No gallop, No rub, Other (Mild tachycardia) - Respiratory Respiratory: No respiratory distress, Clear bilaterally - Abdomen Abdomen: Normal bowel sounds, Non distended, Other (Tenderness across the upper abdomen bilaterally and midepigastrium.) - Back Back: No CVA TTP, No spinal TTP - Derm Derm: Normal color, Warm and dry, No rash - Extremities Extremities: No deformity - Neuro Neuro: Alert and oriented X 3 Eye Opening: Spontaneous Motor: Obeys Commands Verbal: Oriented GCS Score: 15 Results - Vitals Vitals: Vital Signs - 24 hr 07/31/23 07/31/23 07/31/23 17:41 19:45 21:00 Temperature 36.6 C 36.6 C Heart Rate 115 H 90 88 Respiratory 18 16 16 Rate Blood Pressure 148/96 H 130/88 H 132/88 H O2 Saturation 95 96 98 Oxygen O2 Source Room air - Labs Labs: Laboratory Tests 07/31/23 07/31/23 07/31/23 18:27 18:27 20:50 WBC 16.5 H RBC 5.26 Hgb 15.8 Hct 46.6 MCV 88.6 MCH 30.0 MCHC 33.9 RDW 12.2 Plt Count 412 MPV 9.4 Neut # (Auto) 13.5 H Lymph # (Auto) 1.7 [place] # (Auto) 1.0 Eos # (Auto) 0.1 Baso # (Auto) 0.1 Absolute Nucleated RBC 0.00 Nucleated RBC % 0.0 Sodium 133 L Potassium 4.0 Chloride 94 L Carbon Dioxide 26 Anion Gap 13.0 BUN 15 Creatinine 0.9 Estimated GFR (MDRD) 66 L Glucose 408 H Calcium 10.0 Total Bilirubin 0.7 AST 18 ALT 26 Alkaline Phosphatase 58 Total Protein 8.8 Albumin 4.7 Globulin 4.1 Albumin/Globulin Ratio 1.1 Lipase 25 Urine Color YELLOW Urine Clarity CLEAR Urine pH 6.0 Ur Specific [place] 1.020 Urine Protein NEGATIVE Urine Glucose (UA) >=1000 H Urine Ketones 40 H Urine Occult Blood NEGATIVE Urine Nitrite NEGATIVE Urine Bilirubin NEGATIVE Urine Urobilinogen 0.2 (NORMAL) Ur Leukocyte Esterase NEGATIVE Ur Microscopic Review NOT INDICATED Urine Culture Comments NOT INDICATED PD Medical Decision Making - ED course Complexity details: reviewed old records, reviewed results, re-evaluated patient, considered differential, d/w patient, d/w family ED course: 53-year-old female presented with nausea vomiting and epigastric pain similar symptoms. She has had numerous similar bouts in the past and this felt the same to her. On arrival she is tachycardic in retching. She was given IV fluids, Dilaudid, and promethazine with improvement in her symptoms though still had mild nausea. She therefore received initial 8 mg of IV Zofran and an additional liter fluid and 0.5 mg of Dilaudid with substantial improvement in her symptoms. She feels back to baseline at this time. Tachycardia has resolved and her blood pressures remained stable, she has not been febrile here. She does have a leukocytosis at 16,000 but otherwise stable CBC. Her CT MP is remarkable only for hyperglycemia, her lipase, LFTs and renal function are normal as are her electrolytes. Patient has had numerous similar bouts in the past and this feels the same to her, I did not obtain imaging patient's symptoms are back to baseline therefore I do think she stable for discharge home however if she develops a fever or worsening symptoms she is to return to the ER. The patient has pain medication, dicyclomine and nausea medication at home which she will continue use as needed. She was advised on diet modifications and recommended PCP/GI follow-up in the next week or 2. Departure - Departure Disposition: 01 Home, Self Care Clinical Impression: Hyperglycemia Nausea and vomiting Qualifiers: Vomiting type: unspecified Qualified Code(s): R11.2 - Nausea with vomiting, unspecified Condition: Good Instructions: ED Nausea Vomiting Comments: Please continue your medications at home including her dicyclomine and pain medication. You can take your Zofran, the dissolvable tablet, at around 3 AM if needed. You can take the promethazine around midnight if needed. You can take the dicyclomine at any time. If you develop a fever or worsening symptoms, return to the ER. Forms: PCP List Discharge Date/Time: 07/31/23 22:09
[2023-07-31] MEDS ORDERED: PROMETHAZINE 25 MG/1 ML VIAL ONE (20:14)
[2023-07-31] MEDS ORDERED: ONDANSETRON 4 MG/2 ML VIAL IVP STA (21:01)
[2023-07-31 21:10] VITALS: BP 132/88; O2SAT 98
[2023-07-31 21:13] LABS: BILIRUBIN,URINE NEGATIVE (NEGATIVE); GLUCOSE, URINE (UA) >=1000 mg/dL (NEGATIVE); KETONES,URINE (UA) 40 mg/dL (NEGATIVE); LEUKOCYTE ESTERASE, URINE NEGATIVE (NEGATIVE); NITRITE,URINE NEGATIVE (NEGATIVE); OCCULT BLOOD,URINE NEGATIVE (NEGATIVE); PROTEIN,URINE NEGATIVE (NEGATIVE); UROBILINOGEN,URINE 0.2 (NORMAL) E.U./dL (NORMAL)
[2023-07-31 21:36] LABS: CLARITY,URINE CLEAR (CLEAR)
== END 2023-07-31 22:09 | disposition home or self-care (01) ==
LOC: ED 17:21
DX: R00.0 Tachycardia, unspecified (principal); R11.2 Nausea with vomiting, unspecified; E11.65 Type 2 diabetes mellitus with hyperglycemia; Z79.4 Long term (current) use of insulin
CPT/HCPCS: 36415; 80053; 81003; 83690; 85025; 96365; 96375; 96376; 99283; 99284; J1170; J7040; Q0162; 81001; 87086

== ENCOUNTER 2023-12-04 18:55 | Emergency (ER) | payer BC, MEDICAID, OTHER ==
[2023-12-04 20:20] LABS: BASOPHILS # (AUTO) 0.1 10^3/uL (0.0-0.1); EOSINOPHILS # (AUTO) 0.2 10^3/uL (0.0-0.7); EOSINOPHILS % (AUTO) 1.8 %; HCT - HEMATOCRIT 45.1 % (37.0-47.0); LYMPHOCYTES # (AUTO) 2.7 10^3/uL (1.5-3.5); LYMPHOCYTES % (AUTO) 32.1 %; MEAN CORPUSCULAR HEMOGLOBIN 29.5 pg (27.0-31.0); MEAN CORPUSCULAR HGB CONC 33.3 g/dL (32.0-36.0); MEAN CORPUSCULAR VOLUME 88.6 fL (81.0-99.0); MEAN PLATELET VOLUME 9.4 fL (7.9-10.8); MONOCYTES # (AUTO) 0.8 10^3/uL (0.0-1.0); MONOCYTES % (AUTO) 9.1 %; NEUTROPHILS # (AUTO) 4.7 10^3/uL (1.5-6.6); NEUTROPHILS % (AUTO) 55.8 %; PLT - PLATELET COUNT 357 10^3/uL (130-450); RED BLOOD COUNT 5.09 10^6/uL (4.20-5.40); RED CELL DISTRIBUTION WIDTH 12.8 % (12.0-15.0); WHITE BLOOD COUNT 8.4 x10^3/uL (4.8-10.8)
[2023-12-04] MEDS ORDERED: PROMETHAZINE 25 MG/1 ML VIAL ONE (20:48)
[2023-12-04] MEDS: PROMETHAZINE INJ 25 MG in SODIUM CHLORIDE 0.9% 50 ML IV STA (20:49)
[2023-12-04] MEDS: HYDROmorphone 1 MG/ML CARPUJECT IVP STA ×2 (20:50→21:43)
[2023-12-04 20:55] LABS: ALBUMIN 4.5 g/dL (3.2-5.5); ALBUMIN/GLOBULIN RATIO 1.2 (1.0-2.2); BILIRUBIN,TOTAL 0.6 mg/dL (0.2-1.0); CALCIUM 10.2 mg/dL (8.5-10.3); POTASSIUM 4.4 mmol/L (3.5-4.5); TOTAL PROTEIN 8.4 g/dL (6.4-8.9)
[2023-12-04] MEDS: SODIUM CHLORIDE 0.9% 1,000 ML IV STA (20:57)
[2023-12-04] MEDS: ONDANSETRON 4 MG/2 ML VIAL IVP STA (21:43)
[2023-12-04] MEDS ORDERED: ONDANSETRON 4 MG/2 ML VIAL ONE (21:44)
--- NOTE | 2023-12-04 22:15 | ED Physician Documentation ---
PD HPI ABD PAIN - Stated complaint Stated Complaint: ABD PX - Chief complaint Chief Complaint: Abd Pain - History obtained from History obtained from: Patient - History of Present Illness Pain level max: 8 Pain level now: 8 Quality: Aching, Pain Location: Epigastric Associated symptoms: No: Diarrhea, Constipation, Melena, Hematochezia, Hematuria - Additional information Additional information: 53-year-old female presents to the emergency department complaining of epigastric abdominal pain. This is a chronic ongoing issue for her. She states she has chronic pancreatitis. Usually able to be managed at home with her home pain medications and nausea medications. Ran out of her Zofran and Phenergan. No fevers. No chills. This feels similar to all of her other episodes of chronic pancreatitis. No recent antibiotics. No recent travel. No blood in t he stool. She does not drink alcohol. Review of Systems Constitutional: denies: Fever, Chills Nose: denies: Rhinorrhea / runny nose, Congestion GI: denies: Hematemesis, Bloody / black stool : denies: Dysuria, Frequency, Hesitancy, Now EGA Skin: denies: Rash Musculoskeletal: denies: Neck pain, Back pain Neurologic: denies: Headache PD PAST MEDICAL HISTORY - Past Medical History Past Medical History: Yes Cardiovascular: Hypertension Respiratory: None Neuro: Migraines Endocrine/Autoimmune: Type 2 diabetes GI: Pancreatitis, Cholelithiasis MINI BACCARAT DEALER: None : None HEENT: Chronic vision loss Psych: Depression, Anxiety Musculoskeletal: None - Past Surgical History Past Surgical History: Yes General: Cholecystectomy Ortho: Knee replacement /MINI BACCARAT DEALER: Tubal ligation, Hysterectomy, Oophrectomy, Breast reduction HEENT: Cataracts - Present Medications Home Medications: Ambulatory Orders Medication Instructions Recorded Confirmed Insulin Glargine [Lantus Solostar] 40 units SQ HS 11/03/20 04/02/23 Lisinopril [Zestril] 10 mg PO DAILY 11/03/20 04/02/23 Insulin Aspart [NovoLOG] 15 units SQ TID 11/08/20 04/02/23 Dicyclomine [Bentyl] 1 - 2 tab PO QID PRN #20 cap 03/28/21 04/02/23 Ondansetron Odt [Zofran] 4 mg TL Q6H PRN #10 tablet 08/10/21 04/02/23 Fluoxetine HCl [Prozac] 20 mg PO DAILY 08/31/21 04/02/23 LORazepam [Ativan] 1 mg PO BID PRN 08/31/21 04/02/23 Metoprolol Succinate [Toprol Xl] 25 mg PO DAILY PM 08/31/21 04/02/23 Promethazine Supp [Phenergan Supp] 25 mg IN Q8HR #30 supp 08/31/21 04/02/23 diphenhydrAMINE [Benadryl] 25 - 50 mg PO Q6HR PRN 08/31/21 04/02/23 Albuterol Sulf [Ventolin Hfa 1 - 2 puffs INH Q4HR PRN #1 inhaler 12/14/21 04/02/23 Inhaler] Benzonatate [Tessalon] 100 - 200 mg PO TID PRN #30 cap 12/14/21 04/02/23 Loratadine [Claritin] 10 mg PO ONCE 12/14/21 04/02/23 Ibuprofen [Motrin] 600 mg PO TID PRN #25 tab 08/22/22 04/02/23 HYDROcod/ACETAM 5/325 [[place] 5/325] 1 - 2 tablet PO Q6H PRN #14 tablet 08/24/22 04/02/23 Clotrimazole/Betamethasone Crm 1 applic TOP BID #45 ml 10/06/22 04/02/23 [Lotrisone Cream] Doxycycline Hyclate 100 mg PO BID 7 Days #14 cap 10/06/22 04/02/23 Fluconazole [Diflucan] 150 mg PO Q3D #2 tablet 10/06/22 04/02/23 Ciprofloxacin HCl [Cipro] 500 mg PO BID 5 Days #10 tablet 10/09/22 04/02/23 Dicyclomine [Bentyl] 10 mg PO QID PRN #20 cap 10/28/22 04/02/23 Ondansetron Odt [Zofran] 4 mg TL Q6H PRN #14 tablet 10/28/22 04/02/23 Promethazine [Phenergan] 25 mg PO Q6H PRN #10 tab 10/28/22 04/02/23 Mupirocin 2% Oint [Bactroban 2% 1 applic TOP BID #22 gm 11/27/22 04/02/23 Oint] Sulfamethox/Trimeth 800/160 1 each PO BID #14 tablet 11/27/22 04/02/23 [Bactrim Ds 800/160] Cyclobenzaprine [Flexeril] 10 mg PO TID PRN #20 tablet 02/05/23 04/02/23 Lidocaine Patch 5% [Lidoderm Patch] 1 patch TOP DAILY PRN #10 patch 02/05/23 04/02/23 Clotrimazole 1% Cream [Lotrimin 1% 1 gm TOP BID #30 gm 04/02/23 Cream] Fluconazole 150 mg PO DAILY #3 tablet 04/14/23 Ondansetron Odt [Zofran] 4 mg TL Q6H PRN #20 tablet 12/04/23 Promethazine [Phenergan] 25 mg PO Q6H PRN #14 tab 12/04/23 - Allergies Allergies/Adverse Reactions: Allergies Allergy/AdvReac Type Severity Reaction Status Date / Time haloperidol Allergy Hallucinati Verified 12/04/23 19:05 ons metoclopramide [From Reglan] AdvReac Rash Verified 12/04/23 19:05 - Social History Does the pt smoke?: No Smoking Status: Never smoker Does the pt drink ETOH?: No Does the pt have substance abuse?: No - Immunizations Immunizations are current?: Yes - POLST Patient has POLST: No PD ED PE NORMAL - Vitals Vital signs reviewed: Yes - General General: Alert and oriented X 3, No acute distress - HEENT HEENT: Moist mucous membranes - Neck Neck: Supple, no meningeal sign - Cardiac Cardiac: RRR, Strong equal pulses - Respiratory Respiratory: No respiratory distress, Clear bilaterally - Abdomen Abdomen: Soft, Non distended, Other (Tender to palpation epigastric without peritoneal signs) - Back Back: No CVA TTP, No spinal TTP - Derm Derm: Warm and dry - Extremities Extremities: No calf tenderness / cord - Neuro Neuro: Alert and oriented X 3 - Psych Psych: Normal mood, Normal affect Results - Vitals Vitals: Vital Signs - 24 hr 12/04/23 12/04/23 12/04/23 19:01 21:05 22:23 Temperature 36 C L 36.5 C Heart Rate 120 H 105 H 100 Respiratory 16 18 16 Rate Blood Pressure 140/96 H 128/92 H 122/75 O2 Saturation 99 99 98 Oxygen O2 Source Room air - Labs Labs: Laboratory Tests 12/04/23 12/04/23 20:16 20:16 WBC 8.4 RBC 5.09 Hgb 15.0 Hct 45.1 MCV 88.6 MCH 29.5 MCHC 33.3 RDW 12.8 Plt Count 357 MPV 9.4 Neut # (Auto) 4.7 Lymph # (Auto) 2.7 [place] # (Auto) 0.8 Eos # (Auto) 0.2 Baso # (Auto) 0.1 Absolute Nucleated RBC 0.00 Nucleated RBC % 0.0 Sodium 134 L Potassium 4.4 Chloride 96 L Carbon Dioxide 27 Anion Gap 11.0 BUN 11 Creatinine 1.0 Estimated GFR (MDRD) 58 L Glucose 405 H Calcium 10.2 Total Bilirubin 0.6 AST 26 ALT 34 Alkaline Phosphatase 58 Total Protein 8.4 Albumin 4.5 Globulin 3.9 Albumin/Globulin Ratio 1.2 Lipase 22 PD Medical Decision Making - ED course Complexity details: reviewed results, re-evaluated patient, considered dif ferential, d/w patient ED course: Patient with her usual abdominal pain and vomiting. Given IV fluids, IV Phenergan, IV Zofran and IV Dilaudid. Pain, nausea and vomiting resolved. She states she has pain medication for home but is out of her nausea medications and requests a refill. A prescription was sent for Zofran and Phenergan. No significant lab abnormalities. Tolerating p.o. without difficulty here. No indication for imaging as these are her typical symptoms. Patient counseled regarding signs and symptoms for which I believe and urgent re-evaluation would be necessary. Patient with good understanding of and agreement to plan and is comfortable going home at this time This document was made in part using voice recognition software. While efforts are made to proofread this document, sound alike and grammatical errors may occur. Departure - Departure Disposition: 01 Home, Self Care Clinical Impression: Dehydration Chronic pancreatitis Qualifiers: Pancreatitis type: unspecified pancreatitis type Qualified Code(s): K86.1 - Other chronic pancreatitis Condition: Good Instructions: ED Dehydration, ED Pancreatitis Follow-Up: Anel David PA [Primary Care Provider] - Within 1 week Prescriptions: Promethazine [Phenergan] 25 mg PO Q6H PRN #14 tab PRN Reason: Nausea / Vomiting Ondansetron Odt [Zofran] 4 mg TL Q6H PRN #20 tablet PRN Reason: Nausea / Vomiting Comments: [facility] [place]. Please follow-up with your doctor for further care. Please return if you worsen. Forms: PCP List Discharge Date/Time: 12/04/23 22:23
[2023-12-04 22:29] VITALS: BP 122/75; O2SAT 98
== END 2023-12-04 22:23 | disposition home or self-care (01) ==
LOC: ED 18:55
DX: E86.0 Dehydration (principal); K86.1 Other chronic pancreatitis; I10 Essential (primary) hypertension; E11.9 Type 2 diabetes mellitus without complications; Z79.4 Long term (current) use of insulin; Z79.899 Other long term (current) drug therapy
CPT/HCPCS: 36415; 80053; 83690; 85025; 96365; 96375; 96376; 99283; 99284; J1170

== ENCOUNTER 2024-04-11 14:54 | Emergency (ER) | payer BC, MEDICAID, OTHER ==
[2024-04-11 15:27] LABS: BASOPHILS # (AUTO) 0.1 10^3/uL (0.0-0.1); BASOPHILS % (AUTO) 0.8 %; EOSINOPHILS # (AUTO) 0.1 10^3/uL (0.0-0.7); EOSINOPHILS % (AUTO) 1.4 %; HCT - HEMATOCRIT 44.1 % (37.0-47.0); HGB - HEMOGLOBIN 14.6 g/dL (12.0-16.0); LYMPHOCYTES # (AUTO) 3.5 10^3/uL (1.5-3.5); LYMPHOCYTES % (AUTO) 35.9 %; MEAN CORPUSCULAR HEMOGLOBIN 29.9 pg (27.0-31.0); MEAN CORPUSCULAR HGB CONC 33.1 g/dL (32.0-36.0); MEAN CORPUSCULAR VOLUME 90.2 fL (81.0-99.0); MEAN PLATELET VOLUME 9.3 fL (7.9-10.8); MONOCYTES # (AUTO) 0.8 10^3/uL (0.0-1.0); MONOCYTES % (AUTO) 8.1 %; NEUTROPHILS # (AUTO) 5.2 10^3/uL (1.5-6.6); NEUTROPHILS % (AUTO) 53.5 %; PLT - PLATELET COUNT 389 10^3/uL (130-450); RED BLOOD COUNT 4.89 10^6/uL (4.20-5.40); RED CELL DISTRIBUTION WIDTH 12.3 % (12.0-15.0); WHITE BLOOD COUNT 9.8 x10^3/uL (4.8-10.8)
[2024-04-11 15:56] LABS: ALBUMIN 4.3 g/dL (3.2-5.5); ALBUMIN/GLOBULIN RATIO 1.1 (1.0-2.2); BILIRUBIN,TOTAL 0.5 mg/dL (0.2-1.0); CALCIUM 10.4 mg/dL (8.5-10.3); POTASSIUM 5.2 mmol/L (3.5-4.5); TOTAL PROTEIN 8.2 g/dL (6.4-8.9)
--- NOTE | 2024-04-11 16:40 | ED Physician Documentation ---
History of Present Illness - Stated complaint Stated Complaint: ABD/BACK PX - Chief complaint Chief Complaint: Abd Pain - Additonal information Additional information: Patient is a 54-year-old female presenting to the emergency department with past medical history of type 2 diabetes not insulin-dependent and chronic pancreatitis. Patient presents with severe epigastric pain radiating to right upper quadrant and upper back. Patient symptoms have been going on over the weekend with severe pain. 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 She notes she has not been able to eat or drink much other than crackers and water over the weekend. She notes persistent nausea and diarrhea with her symptoms. She notes increased frequency and cloudiness to her urine as well. She notes she has no vomiting today associated with her symptoms. Patient denies any fevers or chills at home. She has past medical history of cholecystectomy. Patient has been seen here multiple times for similar symptoms in the past. She notes she has recurrent flareups over multiple days that occasionally require emergency room visits for her. She notes her symptoms feel similar to her previous pancreatitis flareups.She has tried Vicodin, Bentyl, and promethazine for her pain at home. PD PAST MEDICAL HISTORY - Past Medical History Past Medical History: Yes Cardiovascular: Hypertension Respiratory: None Neuro: Migraines Endocrine/Autoimmune: Type 2 diabetes GI: Pancreatitis, Cholelithiasis SUPERVISOR FILTRATION: None : None HEENT: Chronic vision loss Psych: Depression, Anxiety Musculoskeletal: None - Past Surgical History Past Surgical History: Yes General: Cholecystectomy Ortho: Knee replacement /SUPERVISOR FILTRATION: Tubal ligation, Hysterectomy, Oophrectomy, Breast reduction HEENT: Cataracts - Present Medications Home Medications: Ambulatory Orders Medication Instructions Recorded Confirmed Insulin Glargine [Lantus Solostar] 40 units SQ HS 11/03/20 04/02/23 Lisinopril [Zestril] 10 mg PO DAILY 11/03/20 04/02/23 Insulin Aspart [NovoLOG] 15 units SQ TID 11/08/20 04/02/23 Dicyclomine [Bentyl] 1 - 2 tab PO QID PRN #20 cap 03/28/21 04/02/23 Ondansetron Odt [Zofran] 4 mg TL Q6H PRN #10 tablet 08/10/21 04/02/23 Fluoxetine HCl [Prozac] 20 mg PO DAILY 08/31/21 04/02/23 LORazepam [Ativan] 1 mg PO BID PRN 08/31/21 04/02/23 Metoprolol Succinate [Toprol Xl] 25 mg PO DAILY PM 08/31/21 04/02/23 Promethazine Supp [Phenergan Supp] 25 mg AK Q8HR #30 supp 08/31/21 04/02/23 diphenhydrAMINE [Benadryl] 25 - 50 mg PO Q6HR PRN 08/31/21 04/02/23 Albuterol Sulf [Ventolin Hfa 1 - 2 puffs INH Q4HR PRN #1 inhaler 12/14/21 04/02/23 Inhaler] Benzonatate [Tessalon] 100 - 200 mg PO TID PRN #30 cap 12/14/21 04/02/23 Loratadine [Claritin] 10 mg PO ONCE 12/14/21 04/02/23 Ibuprofen [Motrin] 600 mg PO TID PRN #25 tab 08/22/22 04/02/23 HYDROcod/ACETAM 5/325 [[place] 5/325] 1 - 2 tablet PO Q6H PRN #14 tablet 08/24/22 04/02/23 Clotrimazole/Betamethasone Crm 1 applic TOP BID #45 ml 10/06/22 04/02/23 [Lotrisone Cream] Doxycycline Hyclate 100 mg PO BID 7 Days #14 cap 10/06/22 04/02/23 Fluconazole [Diflucan] 150 mg PO Q3D #2 tablet 10/06/22 04/02/23 Ciprofloxacin HCl [Cipro] 500 mg PO BID 5 Days #10 tablet 10/09/22 04/02/23 Dicyclomine [Bentyl] 10 mg PO QID PRN #20 cap 10/28/22 04/02/23 Ondansetron Odt [Zofran] 4 mg TL Q6H PRN #14 tablet 10/28/22 04/02/23 Promethazine [Phenergan] 25 mg PO Q6H PRN #10 tab 10/28/22 04/02/23 Mupirocin 2% Oint [Bactroban 2% 1 applic TOP BID #22 gm 11/27/22 04/02/23 Oint] Sulfamethox/Trimeth 800/160 1 each PO BID #14 tablet 04/27/23 08/31/23 [Bactrim Ds 800/160] Cyclobenzaprine [Flexeril] 10 mg PO TID PRN #20 tablet 02/05/23 04/02/23 Lidocaine Patch 5% [Lidoderm Patch] 1 patch TOP DAILY PRN #10 patch 02/05/23 04/02/23 Clotrimazole 1% Cream [Lotrimin 1% 1 gm TOP BID #30 gm 04/02/23 Cream] Fluconazole 150 mg PO DAILY #3 tablet 04/14/23 Ondansetron Odt [Zofran] 4 mg TL Q6H PRN #20 tablet 12/04/23 Promethazine [Phenergan] 25 mg PO Q6H PRN #14 tab 12/04/23 HYDROcod/ACETAM 5/325 [[place] 5/325] 1 - 2 tab PO Q6H PRN #15 tablet 04/11/24 Promethazine HCl 50 mg PO DAILY PRN 10 Days #10 04/11/24 tablet - Allergies Allergies/Adverse Reactions: Allergies Allergy/AdvReac Type Severity Reaction Status Date / Time haloperidol Allergy Hallucinati Verified 04/11/24 14:58 ons metoclopramide [From Reglan] AdvReac Rash Verified 04/11/24 14:58 - Social History Does the pt smoke?: No Smoking Status: Never smoker Does the pt drink ETOH?: No Does the pt have substance abuse?: No - Immunizations Immunizations are current?: Yes - POLST Patient has POLST: No PD ED PE NORMAL - Vitals Vital signs reviewed: Yes - General General: Alert and oriented X 3 - HEENT HEENT: Atraumatic - Neck Neck: Supple, no meningeal sign - Cardiac Cardiac: RRR, No murmur, No gallop, No rub - Respiratory Respiratory: No respiratory distress, Clear bilaterally - Abdomen Abdomen: Normal bowel sounds - Back Back: Other (No significant CVA tenderness. Abdomen is tender to touch in epigastric region no specific guarding abdomen is soft. Negative Zuniga sign. No lower abdominal tenderness.) - Derm Derm: Normal color, No rash - Neuro Eye Opening: Spontaneous Motor: Obeys Commands Verbal: Oriented GCS Score: 15 Results - Vitals Vitals: Vital Signs - 24 hr 04/11/24 04/11/24 04/11/24 14:58 17:28 19:00 Temperature 36.5 C 36.8 C Heart Rate 100 100 74 Respiratory 16 20 16 Rate Blood Pressure 157/100 H 143/86 H 151/76 H O2 Saturation 99 97 98 04/11/24 19:31 Temperature Heart Rate 89 Respiratory 16 Rate Blood Pressure 137/84 H O2 Saturation 98 Oxygen O2 Source Room air - Labs Labs: Laboratory Tests 04/11/24 04/11/24 04/11/24 15:20 15:20 16:40 WBC 9.8 RBC 4.89 Hgb 14.6 Hct 44.1 MCV 90.2 MCH 29.9 MCHC 33.1 RDW 12.3 Plt Count 389 MPV 9.3 Neut # (Auto) 5.2 Lymph # (Auto) 3.5 [place] # (Auto) 0.8 Eos # (Auto) 0.1 Baso # (Auto) 0.1 Absolute Nucleated RBC 0.00 Nucleated RBC % 0.0 Sodium 134 L Potassium 5.2 H Chloride 98 L Carbon Dioxide 28 Anion Gap 8.0 BUN 13 Creatinine 1.0 Estimated GFR (MDRD) 58 L Glucose 299 H Calcium 10.4 H Total Bilirubin 0.5 AST 19 ALT 26 Alkaline Phosphatase 52 Total Protein 8.2 Albumin 4.3 Globulin 3.9 Albumin/Globulin Ratio 1.1 Lipase 19 Urine Color Urine Clarity Urine pH Ur Specific [place] Urine Protein Urine Glucose (UA) Urine Ketones Urine Occult Blood Urine Nitrite Urine Bilirubin Urine Urobilinogen Ur Leukocyte Esterase Ur Microscopic Review Urine Culture Comments Urine HCG, Qual NEGATIVE 04/11/24 04/11/24 16:40 19:23 WBC RBC Hgb Hct MCV MCH MCHC RDW Plt Count MPV Neut # (Auto) Lymph # (Auto) [place] # (Auto) Eos # (Auto) Baso # (Auto) Absolute Nucleated RBC Nucleated RBC % Sodium 134 L Potassium 4.0 Chloride 100 L Carbon Dioxide 28 Anion Gap 6.0 BUN 12 Creatinine 0.8 Estimated GFR (MDRD) 75 L Glucose 245 H Calcium 9.4 Total Bilirubin 0.5 AST 19 ALT 27 Alkaline Phosphatase 52 Total Protein 7.9 Albumin 4.4 Globulin 3.5 Albumin/Globulin Ratio 1.3 Lipase Urine Color YELLOW Urine Clarity CLEAR Urine pH 6.0 Ur Specific [place] 1.020 Urine Protein NEGATIVE Urine Glucose (UA) >=1000 H Urine Ketones NEGATIVE Urine Occult Blood NEGATIVE Urine Nitrite NEGATIVE Urine Bilirubin NEGATIVE Urine Urobilinogen 0.2 (NORMAL) Ur Leukocyte Esterase NEGATIVE Ur Microscopic Review NOT INDICATED Urine Culture Comments NOT INDICATED Urine HCG, Qual PD Medical Decision Making - ED course Complexity details: reviewed old records, reviewed results, re-evaluated patient ED course: Patient is a 54-year-old female presenting to the emergency department with epigastric pain radiating to her back. She notes symptoms feel similar to her chronic pancreatitis with severe pain. She notes persistent nausea without vomiting.She has no fevers or chills. Symptoms feel similar to chronic pancreatitis symptoms with flareup. She has tried Vicodin promethazine and Bentyl at home without significant relief. Patient given Dilaudid and fluids here in the emergency department Zofran. Patient initially feeling better did require 2 more doses of Dilaudid for pain to be under control. Patient eating and drinking here in emergency department did request dose of Benadryl prior to leaving for persistent itchiness to her nose. Will give small dose and instructed patient to return with any rash difficulty breathing or shortness of breath. Lipase within normal limits low suspicion for any significant acute pancreatitis at this time. Patient additionally had repeat CMP here in emergency department as she was hyperkalemic on initial labs at 5.2 repeat after fluids were given was 4.0 no signs of anion gap concerning for findings patient was hyperglycemic but this also improved with fluids.Patient given strict return precautions and is agreeable with this plan. Departure - Departure Disposition: 01 Home, Self Care Clinical Impression: Epigastric pain, Nausea and vomiting, Chronic pancreatitis Instructions: ED Nausea Vomiting, Abdominal Pain Comments: You were seen here in the emergency department for your upper abdominal pain your workup here showed signs of dehydration but no severe pancreatitis. I have started you on pain medications and nausea medicine to help with your symptoms. Return with any persistent nausea vomiting fevers chills. Follow-up with your GI physician in the outpatient setting. Forms: PCP List
[2024-04-11] MEDS: ONDANSETRON 4 MG/2 ML VIAL IVP STA (17:27)
[2024-04-11] MEDS: SODIUM CHLORIDE 0.9% 1,000 ML IV STA (17:27)
[2024-04-11] MEDS: HYDROmorphone 1 MG/ML CARPUJECT IVP STA ×2 (17:27→19:29)
[2024-04-11 17:43] LABS: BILIRUBIN,URINE NEGATIVE (NEGATIVE); GLUCOSE, URINE (UA) >=1000 mg/dL (NEGATIVE); KETONES,URINE (UA) NEGATIVE (NEGATIVE); LEUKOCYTE ESTERASE, URINE NEGATIVE (NEGATIVE); NITRITE,URINE NEGATIVE (NEGATIVE); OCCULT BLOOD,URINE NEGATIVE (NEGATIVE); PROTEIN,URINE NEGATIVE (NEGATIVE); UROBILINOGEN,URINE 0.2 (NORMAL) E.U./dL (NORMAL)
[2024-04-11 17:48] LABS: CLARITY,URINE CLEAR (CLEAR)
[2024-04-11 17:49] LABS: HCG UR QUAL NEGATIVE
[2024-04-11] MEDS: HYDROmorphone 1 MG/ML CARPUJECT IM STA (18:40)
[2024-04-11 19:38] VITALS: O2SAT 98
[2024-04-11 19:43] LABS: ALBUMIN 4.4 g/dL (3.2-5.5); ALBUMIN/GLOBULIN RATIO 1.3 (1.0-2.2); BILIRUBIN,TOTAL 0.5 mg/dL (0.2-1.0); CALCIUM 9.4 mg/dL (8.5-10.3); CREATININE 0.8 mg/dL (0.6-1.3); TOTAL PROTEIN 7.9 g/dL (6.4-8.9)
[2024-04-11] MEDS: diphenhydrAMINE INJ 50 MG/ML VIAL IVP STA (20:21)
[2024-04-11 20:47] VITALS: BP 122/68
== END 2024-04-11 20:42 | disposition home or self-care (01) ==
LOC: ED 14:54
DX: R10.13 Epigastric pain (principal); R11.2 Nausea with vomiting, unspecified; K86.1 Other chronic pancreatitis; E87.5 Hyperkalemia; E11.65 Type 2 diabetes mellitus with hyperglycemia; L29.9 Pruritus, unspecified; Z79.4 Long term (current) use of insulin
CPT/HCPCS: 36415; 80053; 81003; 81025; 83690; 85025; 96374; 96375; 96376; 99283; 99284; J1170; J1200; 81001; 87086